=== PATIENT | female | born 2000 | race Caucasian/White ===

== ENCOUNTER 2025-06-01 16:34 | Outpatient (CLI) | payer OTHER, SELFPAY ==
--- OUTSIDE RECORDS SUMMARY | 2025-04-06 14:00 | XMS_ITS | Encounter Summary ---
Author Organization [facility] Address [address] [place] [address] Care Team Providers Care Book Jacket Cover Machine Operator Name Role Phone Estrellita Dietz MD Primary Care Provider [phone] Reason for Visit * Reason Comments Pressure Pt states every time she bends down she feels a lot of pressure in her head and when she stands back up she feels like she could pass out Encounter Details Date Type Department Care Team (Latest Contact Info) Description 04/06/2025 3:00 PM EDT Office Visit [facility] [address] [place] [address] Kathleen Lizarraga, BUSINESS ANALYSIS CONSULTANT [address] [place] [address] Vertigo (Primary Dx); Episodic lightheadedness Social History Tobacco Use Types Packs/Day Years Used Date Smoking Tobacco: Never Passive Smoke Exposure: Never Smokeless Tobacco: Never Comments:vapes Alcohol Use Standard Drinks/Week Comments Not Currently 0 (1 standard drink = 0.6 oz pur e alcohol) occ Humiliation, Afraid, Rape, and Kick questionnair e Answer Date Recorded Within the last year, have y ou been afraid of your partner or ex-partner? No 10/31/2024 Within the last year, have y ou been humiliated or emotionally abused in other ways by your partner or ex-partner? No Within the last year, have y ou been kicked, hit, slapped, or otherwise physically hurt by your partner or ex-partner? No 10/31/2024 Within the last year, have y ou been raped or forced to have any kind of sexual activity by your partner or ex-partner? No 10/31/2024 PHQ-2 Answer Date Recorded Patient Health Questionnaire-2 Score 0 02/16/2025 Hunger Vital Sign Answer Date Recorded Within the past 12 months, y ou worried that your food would run out before you got the money to buy more. Never true 11/01/19 25 Within the past 12 months, t he food you bought just didn't last and you didn't have money to get more. Never true 10/31/2024 PRAPARE - Transportation Answer Date Re corded In the past 12 months, has l ack of transportation kept you from medical appointments or from getting medications? No 10/18 In the past 12 months, has l ack of transportation kept you from meetings, work, or from getting things needed for daily living? No 10/31/2024 Housing Stability Vital Sign Answer Aj e Recorded In the last 12 months, was t here a time when you were not able to pay the mortgage or rent on time? No 04/15/2024 In the last 12 months, how many places have you lived? 1 04/15/2024 In the last 12 months, was t here a time when you did not have a steady place to sleep or slept in a assisted (including now)? No 04/15/2024 PHQ-9 Answer Date Recorded Patient Health Questionnaire-9 Score 0 02/16/2025 Housing Stability Vital Sign Answer Aj e Recorded In the last 12 months, was t here a time when you were not able to pay the mortgage or rent on time? No 10/31/2024 In the past 12 months, how m any times have you moved where you were living? 2 10/31/2024 At any time in the past 12 m [facility], were you homeless or living in a assisted (including now)? No 10/31/2024 Safety and Environment Answer Date Emiliano rded Do you worry that your child may have been physically abused? Patient unable to answer 08/22/2024 Do you worry that your child may have been sexually abused? Patient unable to answer 08/22/2024 Are there any guns kept in o r around your home or where your child spends time? Patient unable to answer 08/22/2024 Guns Unloaded or Locked Away Not on file 09/2024 Utilities Answer Date Recorded In the past 12 months has [employer], gas, oil, or water company threatened to shut off services in your home? No 10/31/2024 PHQ-2A Answer Date Recorded Patient Health Questionnaire-2 Score 0 05/13/2023 Comments Unknown Sex and Gender Information Value Date Recorded Sex Assigned at Female 01/17/2021 9:05 AM EDT Legal Sex Female 7:49 PM EDT Gender Identity Female 01/17/2021 9:05 AM EDT Sexual Orientation Straight 01/17/2021 9: 05 AM EDT documented as of this encounter Last Filed Vital Signs Vital Sign Reading Time Taken Comments Blood Pressure 114/66 04/06/2025 3:13 PM EDT Pulse 83 04/06/2025 3:13 PM EDT Temperature 36.9 C (98.4 F) 04/06/2025 3:13 PM EDT Respiratory Rate 18 04/06/2025 3:13 PM EDT Oxygen Saturation 99% 04/06/2025 3:13 PM EDT Inhaled Oxygen Concentration - - Weight 60.2 kg (132 lb 11.5 oz) 04/06/2025 3:13 PM EDT Height 157.5 cm (5' 2 ) 04/06/2025 3:13 PM EDT Body Mass Index 24.27 04/06/2025 3:13 PM EDT documented in this encounter Functional Status * Calculated C-SSRS Risk Score (Lifetime/Recent) Answer Date of Assessment Author No Risk Indicated 04/06/2025 3:16 PM EDT Roxie Galaviz * Question Answer Date of Assessment Author 1. Wish to be (Past 1 Month) No 025 3:16 PM EDT Roxie Moore 2. Non-Specific Active Suici shon Thoughts (Past 1 Month) No 04/06/2025 3:16 PM EDT Helen Moore 6. Suicidal Behavior (Lifetime) No 3:16 PM EDT Roxie Moore documented as of this encounter Miscellaneous Notes * Progress Notes - Kathleen Lizarraga Janeth, BUSINESS ANALYSIS CONSULTANT - 04/06/2025 3:00 PM EDT Subjective Patient ID: Spencer Mojica is a 24 y.o. female. Chief Complaint Patient presents with Pressure Pt states every time she bends down she feels a lot of pressure in her head and when she stands back up she feels like she could pass out Here with report of head pressure when she lies down. Reports it is severe.Will feel dizzy. Will see starts sometimes. Started on Thursday. Denies fever or chills. Denies ear pain or sore throat. Denies vision changes. Notes if she bends down then rises the pain in head is severe and will feel light headed. Feels she is hydrated well. No recent illness or travel. 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 Denies shortness of breath or chest pain. Denies palpitations. Reports normal hearing. Denies sinus pain. The following portions of the chart were reviewed this encounter and updated as appropriate: Tobacco Allergies Meds Problems Med Hx Surg Hx Fam Hx Current Medications[1] Objective Blood pressure 114/66, pulse 83, temperature 36.9 ??C (98.4 ??F), temperature source Oral, resp. rate 18, height 1.575 m (5' 2 ), weight 60.2 kg (132 lb 11.5 oz), SpO2 99%. Body mass index is 24.27 kg/m??. Physical Exam Vitals reviewed. Constitutional: Appearance: Normal appearance. HENT: Head: Normocephalic. Right Ear: Ear canal normal. A middle ear effusion is present. Left Ear: Ear canal normal. A middle ear effusion is present. Nose: Nose normal. Mouth/Throat: Mouth: Mucous membranes are moist. Pharynx: Oropharynx is clear. Eyes: Extraocular Movements: Extraocular movements intact. Conjunctiva/sclera: Conjunctivae normal. Pupils: Pupils are equal, round, and reactive to light. Cardiovascular: Rate and Rhythm: Normal rate and regular rhythm. Pulses: Normal pulses. Heart sounds: Normal heart sounds. Pulmonary: Effort: Pulmonary effort is normal. Breath sounds: Normal breath sounds. Musculoskeletal: General: Normal range of motion. Cervical back: Normal range of motion. Lymphadenopathy: Cervical: No cervical adenopathy. Skin: General: Skin is warm and dry. Neurological: Mental Status: She is alert and oriented to person, place, and time. Cranial Nerves: No cranial nerve deficit. Motor: No weakness. Coordination: Coordination normal. Gait: Gait normal. Psychiatric: Mood and Affect: Mood normal. Behavior: Behavior normal. Thought Content: Thought content normal. Judgment: Judgment normal. Assessment/Plan Diagnoses and all orders for this visit: Vertigo - meclizine (Antivert) 25 MG tablet; Take 1 tablet by mouth 3 times a day as needed for dizziness. - predniSONE (Deltasone) 20 MG tablet; Take 2 tablets by mouth daily for 5 days. Episodic lightheadedness Discussed poss causes of her symptoms such as vertigo, dehydration, pots, sinus or ear disorder, etc Work on good hydration Change positions slowly Trial of medication and RTC if symptoms persist Discussed new med risks and benefits and possible side effects. Note to patient: The Cures Act makes medical notes like these available to patients inthe interest of transparency. However, be advised this is a medical document. It is intended as peer to peer communication. It is written in medical language and may contain abbreviations or verbiagethat are unfamiliar. It may appear blunt or direct. Medical documents are intended to carry relevant information, facts as evident, and the clinical opinion of the practitioner. [1] Current Outpatient Medications: meclizine (Antivert) 25 MG tablet, Take 1 tablet by mouth 3 times a day as needed for dizziness., Disp: 30 tablet, Rfl: 1 predniSONE (Deltasone) 20 MG tablet, Take 2 tablets by mouth daily for 5 days., Disp: 10 tablet, Rfl: 0 documented in this encounter Plan of Treatment Not on file documented as of this encounter Visit Diagnoses Diagnosis Vertigo- Primary Dizziness and giddiness Episodic lightheadedness documented in this encounter Additional Health Concerns Assessment Noted Time PHQ-9 Depression Total Score: 0 02/17/20 25 11:01 AM EDT A fall risk assessment has been complete d for the patient 10/28/2024 8:26 AM EDT A Body Mass Index follow-up plan has been documented for the patient 04/06/2025 3:43 PM EDT documented as of this encounter Care Teams Book Jacket Cover Machine Operator Relationship Specialty Start Date End Date Estrellita Dietz MD [address] [place] [id number] PCP - General 11/30/20 documented as of this encounter
--- OUTSIDE RECORDS SUMMARY | 2025-05-17 14:20 | XMS_ITS | Encounter Summary ---
Author Organization [facility] Address [address] [place] [address] Care Team Providers Care Director Television Name Role Phone Estrellita iDetz MD Primary Care Provider [phone] Reason for Visit * Reason Comments Follow-up Pt is here to determ ine if she is Encounter Details Date Type Department Care Team (Late st Contact Info) Description 05/17/2025 3:20 PM EDT [facility] [address] [address] Halle Waldrop MD [address] [place] [address] Missed period (Primary Dx); Positive test Social History Tobacco Use Types Packs/Day Years Used Date Smoking Tobacco: Never Passive Smoke Exposure: Never Smokeless Tobacco: Never Comments:vapes Alcohol Use Standard Drinks/Week Comments Not Currently 0 (1 standard drink = 0.6 oz pur e alcohol) occ PHQ-2 Answer Date Recorded Patient Health Questionnaire-2 Score 0 02/16/2025 PHQ-9 Answer Date Recorded Patient Health Questionnaire-9 Score 0 02/16/2025 Humiliation, Afraid, Rape, and Kick questionnair e Answer Date Recorded Within the last year, have y ou been afraid of your partner or ex-partner? No 05/17/2025 Within the last year, have y ou been humiliated or emotionally abused in other ways by your partner or ex-partner? No Within the last year, have y ou been kicked, hit, slapped, or otherwise physically hurt by your partner or ex-partner? No 05/17/2025 Within the last year, have y ou been raped or forced to have any kind of sexual activity by your partner or ex-partner? No 05/17/2025 Social Connection and Isolation Panel Answer Date Recorded Frequency of Communication with Friends and Fami ly Not on file 05/17/2025 Frequency of Social Gatherin gs with Friends and Family Not on file 05/17/2025 Attends Church Services Not on file 05/17 Active Member of Clubs or Organizations Not on f ile 05/17/2025 Attends Club or Organization Meetings Not on bonnie e 05/17/2025 Are you , , di vorced, , never , or living with a partner? Living with partner 05/17/2025 Hunger Vital Sign Answer Date Recorded Within the past 12 months, y ou worried that your food would run out before you got the money to buy more. Never true 05/17/20 Within the past 12 months, t he food you bought just didn't last and you didn't have money to get more. Never true 05/17/2025 PRAPARE - Transportation Answer Date Re corded In the past 12 months, has l ack of transportation kept you from medical appointments or from getting medications? No 04/20 In the past 12 months, has l ack of transportation kept you from meetings, work, or from getting things needed for daily living? No 05/17/2025 Housing Stability Vital Sign Answer Aj e Recorded In the last 12 months, was t here a time when you were not able to pay the mortgage or rent on time? No 05/17/2025 In the past 12 months, how m any times have you moved where you were living? 1 05/17/2025 At any time in the past 12 m [facility], were you homeless or living in a halfway (including now)? No 05/17/2025 [facility] Utilities Answer Date Recorded In the past 12 months has th e electric, gas, oil, or water company threatened to shut off services in your home? No 05/17/2025 Safety and Environment Answer Date Emiliano rded Do you worry that your child may have been physically abused? Patient unable to answer 05/17/2025 Do you worry that your child may have been sexually abused? Patient unable to answer 05/17/2025 Are there any guns kept in o r around your home or where your child spends time? Patient unable to answer 05/17/2025 Guns Unloaded or Locked Away Not on file PHQ-2A Answer Date Recorded Patient Health Questionnaire-2 [...] Sign Reading Time Taken Comments Blood Pressure 104/68 05/17/2025 3:01 PM EDT Pulse 73 05/17/2025 3:01 PM EDT Temperature 36.8 C (98.3 F) 05/17/2025 3:01 PM EDT Respiratory Rate 18 05/17/2025 3:01 PM EDT Oxygen Saturation 99% 05/17/2025 3:01 PM EDT Inhaled Oxygen Concentration - - Weight 60.2 kg (132 lb 11.5 oz) 05/17/2025 3:01 PM EDT Height 157.5 cm (5' 2 ) 05/17/2025 3:01 PM EDT Body Mass Index 24.27 05/17/2025 3:01 PM EDT documented in this encounter Functional Status * Calculated C-SSRS Risk Score (Lifetime/Recent) Answer Date of Assessment Author No Risk Indicated 05/17/2025 3:12 PM EDT Av Petty * Question Answer Date of Assessment Author 1. Wish to be (Past 1 Month) No 025 3:12 PM EDT Av Petty P 2. Non-Specific Active Suici shon Thoughts (Past 1 Month) No 05/17/2025 3:12 PM EDT Nelson Petty P 6. Suicidal Behavior (Lifetime) No 3:12 PM EDT Av Petty documented as of this encounter Miscellaneous Notes * Progress Notes - Halle Waldrop MD - 05/17/2025 3:20 PM EDT Subjective Patient ID: Spencer Mojica is a 24 y.o. female. Chief Complaint Patient presents with Follow-up Pt is here to determine if she is HPI PT with positive urine test at home. She is unsure of last period but thinks in March. + fatigue and breast tenderness. Current Medications[1] Pertinent review of systems has been performed and negative except as noted in HPI. Pertinent areas of the chart reviewed include social, family, past medical and surgical history. Objective Physical Exam Constitutional: Appearance: Normal appearance. HENT: Head: Normocephalic and atraumatic. Right Ear: External ear normal. Left Ear: External ear normal. Nose: Nose normal. Mouth/Throat: Mouth: Mucous membranes are moist. Pharynx: Oropharynx is clear. Eyes: Extraocular Movements: Extraocular movements intact. Pupils: Pupils are equal, round, and reactive to light. Cardiovascular: Rate and Rhythm: Normal rate and regular rhythm. Heart sounds: Normal heart sounds. Pulmonary: Effort: Pulmonary effort is normal. Breath sounds: Normal breath sounds. Abdominal: General: Bowel sounds are normal. Palpations: Abdomen is soft. Musculoskeletal: Cervical back: Normal range of motion. Right lower leg: No edema. Left lower leg: No edema. Skin: General: Skin is warm and dry. Coloration: Skin is not jaundiced. Findings: No rash. Neurological: Mental Status: She is alert. Psychiatric: Mood and Affect: Mood normal. Behavior: Behavior normal. Thought Content: Thought content normal. Assessment/Plan Diagnoses and all orders for this visit: Missed period - POCT Urine - Test Qualitative Plasma Positive test - hCG, Total Beta, Quantitative, Plasma 1. Missed period (Primary) Pt with report of + urine test at home but POCT here was negative. Will get serum qualitative test. - POCT Urine - Test Qualitative Plasma [1] Current Outpatient Medications: MV & Min w/FA-DHA ( ADULT GUMMY/DHA/FA PO), Take by mouth., Disp: , Rfl: meclizine (Antivert) 25 MG tablet, Take 1 tablet by mouth 3 times a day as needed for dizziness. (Patient not taking: Reported on 05/17/2025), Disp: 30 tablet, Rfl: 1 documented in this encounter Plan of Treatment Not on file documented as of this encounter Procedures Procedure Name Priority Date/Time Associated Diagnosis Comments TEST QUALITATIVE PLASMA Routine 05/17/2025 3:43 PM EDT Missed period HCG, QUANTITATIVE Add-On 05/17/2025 3:4 3 PM EDT Positive test POCT , URINE Routine 05/17/2025 3:27 PM EDT Missed period documented in this encounter Results * (ABNORMAL) hCG, Total Beta, Quantitative, Plasma (05/17/2025 3:43 PM EDT) hCG, Total Beta 44.4(H) <5 mIU/mL 05/18/2025 1:07 PM EDT [facility] Blood Venous blood specimen / Unknown Venipuncture / Unknown 05/17/2025 3:43 PM EDT 05/17/2025 3:43 PM EDT Narrative [facility] - 05/18/2025 1:07 PM EDT Patients: Normal Range Premenopausal Female < 5 mIU/mL Male < 3 mIU/mL Postmenopausal Female < 8 mIU/mL The [employer] Elecsys hCG+beta assay is standardized to the 4th IS for Chorionic Gonadotropin. The combination of the specific monoclonal antibodies used in this assay recognizes the holo-hormone, nicked forms of hCG, the Beta-core Fragment and the free beta-subunit. Elevated hCG concentrations not associated with are found in patients with gestational trophoblastic disease and choriocarcinoma as well as germ cell, ovarian, bladder, pancreas, stomach, lung and liver tumors. Performed by the [employer] electrochemiluminescent immunoassay which is traceable to the 4th International Standard for hCG (NIBSC 75/589). Results obtained with different test methods or kits cannot be used interchangeably. us Halle Waldrop MD LAB BLOOD ORDERABLES Final Result [facility] [address] [place] [address] * (ABNORMAL) Test Qualitative Plasma (05/17/2025 3:43 PM EDT) Test Positive(A ) Negative 05/17/2025 7:18 PM EDT [facility] Blood Venous blood specimen / Unknown Venipuncture / Unknown 05/17/2025 3:43 PM EDT 05/17/2025 3:43 PM EDT Narrative [facility] - 05/17/2025 7:18 PM EDT Positive, greater than 6 mIU/hCG mL. Halle Waldrop MD LAB BLOOD ORDERABLES Final Result Performing Organization Address City/[facility]/ZIP Co de Phone Number [facility] [address] [place] [address] * POCT Urine (05/17/2025 3:27 PM EDT) Urine - Point of Care Negative Negative - women after 7 weeks gestation and dilute urine (specific gravity <1.010) may have false negative results. Plasma HCG testing is recommended. Test performed at Point of Care. INTERNAL QC OK, PREG URINE yes KIT LOT NUMBER, PREG URINE [id number] KIT EXPIRATION DATE, PREG URINE 02/16/26 Urine Urine specimen obtained by clean catch procedure / Unknown 05/17/2025 3:27 PM EDT Halle Waldrop MD POINT OF CARE TEST ENTER/E DIT ORDERABLES Final Result documented in this encounter Visit Diagnoses Diagnosis Missed period- Primary Positive test examination or test, positive result documented in this encounter Additional Health Concerns Assessment Noted Time PHQ-9 Depression Total Score: 0 02/17/20 25 11:01 AM EDT A fall risk assessment has been complete d for the patient 10/28/2024 8:26 AM EDT A Body Mass Index follow-up plan has been documented for the patient 04/06/2025 3:43 PM EDT documented as of this encounter Care Teams Director Television Relationship Specialty Start Date End Date Estrellita Dietz MD [address] [place] [address] PCP - General 11/30/20 documented as of this encounter
--- OUTSIDE RECORDS SUMMARY | 2025-05-19 12:15 | XMS_ITS | Encounter Summary ---
Author Organization [facility] Address [address] [place] [address] Care Team Providers Care Professor Of Psychology Name Role Phone Estrellita Dietz MD Primary Care Provider [phone] Encounter Details Date Type Department Care Team (Latest Contact Info) Description 05/19/2025 1:15 PM EDT Clinical Support [address] [phone] Positive test (Primary Dx) Social History Tobacco Use Types Packs/Day Years [...] and Family Not on file 05/17/2025 Attends Adventism Services Not on file 05/17 Active Member [...] money to buy more. Never true 05/17/20 25 Within the past 12 months, t [...] any time in the past 12 m [facility], were you homeless or living in a fpc (including now)? No 05/17/2025 [facility] Utilities Answer Date Recorded In the [...] AM EDT documented as of this encounter Miscellaneous Notes * Clinician Note - Moy Boyle - 05/19/2025 1:15 PM EDT Patient arrived for blood work. documented in this encounter Plan of Treatment Not on file documented as of this encounter Procedures Procedure Name Priority Date/Time Associated Diagnosis Comments HCG, QUANTITATIVE Routine 05/19/2025 11: 21 AM EDT Positive test documented in this encounter Results * (ABNORMAL) hCG, Total Beta, Quantitative, Plasma (05/19/2025 11:21 AM EDT) hCG, Total Beta 101(H) <5 mIU/mL 05/19/2025 7:06 PM EDT [facility] Blood Venous blood specimen / Unknown Venipuncture / Unknown 05/19/2025 11:21 AM EDT 05/19/2025 11:21 AM EDT Narrative [facility] - 05/19/2025 7:06 PM EDT Patients: Normal Range Premenopausal Female [...] or kits cannot be used interchangeably. us Estrellita Dietz MD LAB BLOOD ORDERABLES Final Re sult [facility] [address] [place] [address] documented in this encounter Visit Diagnoses Diagnosis Positive test- Primary examination or test, positive result documented in this encounter Additional Health Concerns Assessment Noted Time PHQ-9 Depression Total Score: 0 02/17/20 25 11:01 AM EDT A fall risk assessment has been complete d for the patient 10/28/2024 8:26 AM EDT A Body Mass Index follow-up plan has been documented for the patient 05/19/2025 11:22 AM EDT documented as of this encounter Care Teams Professor Of Psychology Relationship Specialty Start Date End Date Estrellita Dietz MD [address] [place] [phone] PCP - General 11/30/20 documented as of this encounter
--- OUTSIDE RECORDS SUMMARY | 2025-05-22 15:00 | XMS_ITS | Encounter Summary ---
Author Organization [facility] Address [address] [place] [address] Care Team Providers Care Floor Helper Name Role Phone Estrellita Dietz MD Primary Care Provider [phone] Reason for Referral * Imaging (Routine) - Closed Specialty Diagnoses / Procedures Referred By Contac t Referred To Contact Diagnoses Unsure of LMP (last menstrual period) as reason for ultrasound scan Procedures OB US Transvaginal Nicolas Medina MD [address] [place] [address] Phone: tel: fax: EXT External Clinic [address] [place] [phone] Referral ID Status Reason Start Date Expiration Date Visits Re quested Visits Authorized [id number] Closed 05/22/2025 11/21/2026 1 1 Encounter Details Date Type Department Care Team (Late st Contact Info) Description 05/22/2025 3:00 PM EST Initial Obstetrics & Gynecology [address] [place] [address] Nicolas Medina MD [address] [place] [address] GA: 5w1d Social History Tobacco [...] and Family Not on file 05/17/2025 Attends [employer]reg[employer] Not on file 05/17 Active Member [...] were you homeless or living in a fdc (including now)? No 05/17/2025 [facility] Utilities Answer Date Recorded In the past 12 months has [employer] gas, oil, or water company threatened to [...] down, depressed, or hopeless Not at all 05/22/2025 3:13 PM Maryanne Mayo Patient Health Questionnaire -2 Score 0 05/22/2025 3:13 PM Maryanne Mayo * Question Answer [...] so slowly that other people could have noticed? Or the opposite - being so fidgety or restless that you have been moving around a lot more than usual. Not at all 05/22/2025 3:13 PM Maryanne Mayo Thoughts that you would be b cory off or hurting yourself in some way Not at all 05/22/2025 3:13 PM Maryanne Mayo Patient Health Questionnaire -9 Score 0 05/22/2025 3:13 PM Maryanne Mayo * How difficult [...] Reactive Non Reactive 05/22/2025 7:28 PM EST [facility] Comment:Screening for HIV 1 & 2 antibodies, and P24 antigen is NONREACTIVE. No confirmatory testing is required. Blood Venous blood specimen / Unknown Venipuncture / Unknown 05/22/2025 3:52 PM EST 05/22/2025 6:48 PM EST us Nicolas Medina MD LAB BLOOD ORDERABLES Final Resu lt Performing Organization Address City/[facility]/ZIP Co de Phone Number [facility] [address] [place] [address] * Urine Culture (05/22/2025 3:52 PM EST) Pathologist [facility] Culture <10,000 CFU/mL Mixed urogenital, fecal, or skin sophia present. 05/24/2025 9:27 AM EST [facility] Urine Urine specimen obtained by clean catch procedure / Unknown Non-blood Collection / Unknown 05/22/2025 3:52 PM EST 05/22/2025 6:47 PM EST us Nicolas Medina MD LAB MICROBIOLOGY - GENERAL ORDE [facility] Final Result Performing Organization Address City/[facility]/[place] [address] * Type and Screen (05/22/2025 3:52 PM [...] TEST ORDERABLES Final Result Performing Organization Address [facility] Phone Number BLOOD BANK [address] * Treponema Pallidum (Syphilis) Antibodies with Reflex to RPR and RPR Titer (Those with NO known Syphilis) (05/22/2025 3:52 PM EST) Syphilis Antibody (IgG+IgM) Nonreactive Nonreactive 05/22/2025 8:35 PM EST [facility] Comment:Nonreactive. No sero logic evidence of syphilis. No follow-up necessary unless clinically indicated (e.g., early syphilis). Blood Venous blood specimen / Unknown Venipuncture / Unknown 05/22/2025 3:52 PM EST 05/22/2025 6:48 PM EST us Nicolas Medina MD LAB BLOOD ORDERABLES Final Resu lt Performing Organization Address City/[facility] Co de Phone Number [facility] [address] [place] [address] * Rubella Antibody IgG (05/22/2025 3:52 PM EST) Rubella Antibody IgG Negative Negative 05/22/2025 9:27 PM EST [facility] Comment: Rubella IgG Result Interpretation: Negative: [...] ORDERABLES Final Resu lt Performing Organization Address City/[facility]/ZIP Co de Phone Number [facility] [address] [place] [address] * Neisseria gonorrhea DNA by PCR (05/22/2025 3:52 PM EST) Neisseria gonorrhea DNA PCR Result Not Detected Not Detected. 05/23/2025 2:37 PM EST [facility] Urine Urine specimen obtained by clean catch procedure / Unknown Non-blood Collection / Unknown 05/22/2025 3:52 PM EST 05/22/2025 6:47 PM EST Narrative [facility] - 05/23/2025 2:37 PM EST This test is performed by the Temptster000 instrument for Real Time PCR C. trachomatis and N. gonorrhea. This test is FDA approved for use with endocervical, vaginal, and urine specimens. This test is used for clinical purposes. It should not be regarded as invesigational or for research. The [facility] Clinical [facility]biology Laboratory is certified under the Clinical Laboratory Improvement Amendments of 1988 (CLIA-88) as qualified to perform high complexity clinical laboratory testing. Result Claudia Medina MD LAB [facility] Final Result Performing Organization Address [facility] [place] [address] * Hepatitis C Antibody w/Reflex to HCV Quant PCR (05/22/2025 3:52 PM EST) Hepatitis C Antibody Negative Negative 05/22/2025 7:29 PM EST [facility] Blood Venous blood specimen / Unknown Venipuncture / Unknown 05/22/2025 3:52 PM EST 05/22/2025 6:48 PM EST Result Claudia Medina MD LAB BLOOD ORDERABLES Final Resu lt Performing Organization Address City/[facility]/ZIP Co de Phone Number [facility] [address] [place] [address] * Hepatitis B Surface Antigen (05/22/2025 3:52 PM EST) Hepatitis B Surf Antigen Negative Negative 05/22/2025 8:35 PM EST [facility] Blood Venous blood specimen / Unknown Venipuncture / Unknown 05/22/2025 3:52 PM EST 05/22/2025 6:48 PM EST us Nicolas Medina MD LAB BLOOD ORDERABLES Final Resu lt Performing Organization Address [facility]/ZIP Co de Phone Number [facility] [address] [place] [address] * Chlamydia trachomatis DNA by PCR (05/22/2025 3:52 PM EST) Pathologist [facility] Chlamydia trachomatis DNA PCR Result Not Detected Not Detected 05/23/2025 2:37 PM EST [facility] Urine Urine specimen obtained by clean catch procedure / Unknown Non-blood Collection / Unknown 05/22/2025 3:52 PM EST 05/22/2025 6:47 PM EST Narrative [facility] - 05/23/2025 2:37 PM EST This test is performed by the [employer] m2000 instrument for Real Time PCR C. trachomatis and N. gonorrhea. This test is FDA approved for use with endocervical, vaginal, and urine specimens. This test is used for clinical purposes. It should not be regarded as invesigational or for research. The [facility] is certified under the Clinical Laboratory Improvement Amendments of 1988 (CLIA-88) as qualified to perform high complexity clinical laboratory testing. us Nicolas Medina MD LAB MICROBIOLOGY - GENERAL ORDE [facility] Final Result Performing Organization Address City/[facility]/ZIP Co de Phone Number [facility] [address] [place] [address] * CBC W/O Differential (05/22/2025 3:52 PM EST) Pathologist [facility] WBC Count 8.24 3.70 - 10.30 10*3/uL LAB HEMATOLOGY METHOD 05/22/2025 7:07 PM EST [facility] RBC Count 4.96 3.90 - 5.20 10*6/uL LAB HEMATOLOGY METHOD 05/22/2025 7:07 PM EST [facility] HGB 14.0 11.2 - 15.7 g/dL LAB HEMATOLOGY METHOD 05/22/2025 7:07 PM EST [facility] HCT 41.6 34.0 - 45.0 % LAB HEMATOLOGY METHOD 05/22/2025 7:07 PM EST [facility] Platelet Count 318 155 - 369 10*3/uL LAB HEMATOLOGY METHOD 05/22/2025 7:07 PM EST [facility] MCV 84 79 - 98 fL LAB HEMATOLOGY METHOD 05/22/2025 7:07 PM EST [facility] MCH 28.2 26.0 - 32.0 pg LAB HEMATOLOGY METHOD 05/22/2025 7:07 PM EST [facility] MCHC 33.7 30.7 - 35.5 g/dL LAB HEMATOLOGY METHOD 05/22/2025 7:07 PM EST [facility] RDW 12.9 11.5 - 14.5 % LAB HEMATOLOGY METHOD 05/22/2025 7:07 PM EST [facility] MPV 11.0 8.8 - 12.5 fL LAB HEMATOLOGY METHOD 05/22/2025 7:07 PM EST [facility] nRBC 0.0 <=0.0 per 100 WBCs LAB HEMATOLOGY METHOD 05/22/2025 7:07 PM EST [facility] Blood Venous blood specimen / Unknown Venipuncture / Unknown 05/22/2025 3:52 PM EST 05/22/2025 6:48 PM EST us Nicolas Medina MD LAB BLOOD ORDERABLES Final Resu lt [facility] [address] [place] [address] * Progesterone (05/22/2025 3:52 PM EST) Progesterone III 11.9 Reference Range not established ng/mL 05/22/2025 8:11 PM EST [facility] Blood Venous blood specimen / Unknown Venipuncture / Unknown 05/22/2025 3:52 PM EST 05/22/2025 7:43 PM EST Narrative [facility] - 05/22/2025 8:11 PM EST Menstrual Cycle Phase Reference Intervals: Females, 18 Y and up (ng/mL) Follicular <= 0.33 Ovulation <= 2.35 Luteal 0.5-21 Post-Menopausal <0.2 reference Intervals (ng/mL): 1st Trimester 11 - 45 2nd Trimester 25 - 84 3rd Trimester 58 - 214 us Nicolas Medina MD LAB BLOOD ORDERABLES Final Resu Performing Organization Address [facility] Co de Phone Number [facility] [address] [place] [address] * (ABNORMAL) hCG, Total Beta, Quantitative, Plasma (05/22/2025 3:52 PM EST) hCG, Total Beta 412(H) <5 mIU/mL 05/22/2025 7:29 PM EST [facility] Blood Venous blood specimen / Unknown Venipuncture / Unknown 05/22/2025 3:52 PM EST 05/22/2025 6:48 PM EST Narrative [facility] - 05/22/2025 7:29 PM EST Patients: Normal [...] ORDERABLES Final Resu lt Performing Organization Address [facility] Co de Phone Number [facility] [address] [place] [address] * OB US Transvaginal (05/22/2025 3:29 PM EST) Anatomical Region Laterality Modality Pelvis Ultrasound 05/22/2025 3:32 PM EST Impressions 05/22/2025 3:41 PM EST The OB Ultrasound you requested has been resulted. Please navigate to the Imaging tab in [employer] for review. This message has been generated by the interface. Narrative Procedure Note Nicolas Medina MD - 05/22/2025 IMPRESSION: The OB Ultrasound you requested has been resulted. Please navigate to theImaging tab in [employer] for review. This message has been generated by theinterface. us Nicolas Medina MD IMG OB US [...] documented as of this encounter Care Teams Floor Helper Relationship Specialty Start Date End Date Estrellita Dietz MD [address] [place] [address] PCP - General 11/30/20 documented as of this encounter
--- OUTSIDE RECORDS SUMMARY | 2025-05-22 15:30 | XMS_ITS | Encounter Summary ---
Author Organization [facility] Address [address] [place] [address] Care Team Providers Care Bacteriologist Medical Name Role Phone Estrellita Dietz MD Primary Care Provider [phone] Reason for Visit * Imaging (Routine) - Closed Specialty Diagnoses / Procedures Referred By Lara rogers Referred To Contact Diagnoses Unsure of LMP (last menstrual period) as reason for ultrasound scan Procedures OB US Transvaginal Nicolas Medina MD [address] [place] [address] Phone: tel: fax: EXT External Clinic [address] [place] [phone] Referral ID Status Reason Start Date Expiration Date Visits Re quested Visits Authorized [id number] Closed 05/22/2025 11/21/2026 1 1 Encounter Details Date Type Department Care Team (Latest Contact Info) Description 05/22/2025 3:30 PM EST Ancillary Procedure Obstetrics & Gynecology [address] [place] [address] Unsure of LMP (last menstrual [...] any time in the past 12 m [facility], were you homeless or living in a care home (including now)? No 05/17/2025 [facility] Utilities Answer Date Recorded In the [...] Please navigate to the Imaging tab in amiando for review. This message has been generated by the interface. Narrative Procedure Note Nicolas Medina MD - 05/22/2025 IMPRESSION: The OB Ultrasound you requested has been resulted. Please navigate to theImaging tab in amiando for review. This message has been generated by [employer]. us Nicolas Medina MD IMG OB US [...] documented as of this encounter Care Teams Bacteriologist Medical Relationship Specialty Start Date End Date Estrellita Dietz MD [address] [place] [phone] PCP - General 11/30/20 documented as of this encounter
--- OUTSIDE RECORDS SUMMARY | 2025-05-24 11:00 | XMS_ITS | Encounter Summary ---
Author Organization Healthcare Address [address] [place] [address] Care Team Providers Care Pleasure Craft Sailor Name Role Phone Estrellita Dietz MD Primary Care Provider [phone] Reason for Visit * Reason Comments Labs Here for labs. Encounter Details Date Type Department Care Team (Latest Contact Info) Description 05/24/2025 11:00 AM EST Clinical Support Obstetrics & Gynecology [address] [place] [address] test positive (Primary Dx) Social [...] and Family Not on file 05/17/2025 Attends Druze Services Not on file 05/17 Active Member [...] any time in the past 12 m [facility], were you homeless or living in a assisted (including now)? No 05/17/2025 [facility] Utilities Answer Date Recorded In the [...] 842(H) <5 mIU/mL 05/24/2025 2:35 PM EST [facility] Blood Venous blood specimen / Unknown Venipuncture / Unknown 05/24/2025 10:42 AM EST 05/24/2025 2:04 PM EST Narrative [facility] - 05/24/2025 2:35 PM EST Patients: Normal Range Premenopausal Female < 5 mIU/mL Male < 3 mIU/mL Postmenopausal Female < 8 mIU/mL The Mlee Elecsys hCG+beta assay is standardized to the [...] MD LAB BLOOD ORDERABLES Final Resu lt [facility] [address] [place] [address] documented in this encounter Visit Diagnoses Diagnosis [...] documented as of this encounter Care Teams Pleasure Craft Sailor Relationship Specialty Start Date End Date Estrellita Dietz MD [address] [place] [id number] PCP - General 11/30/20 documented as of this encounter
--- OUTSIDE RECORDS SUMMARY | 2025-05-31 15:15 | XMS_ITS | Encounter Summary ---
Author Organization Healthcare Address [address] [place] [address] Care Team Providers Care Explosive Ordnance Technician Name Role Phone Estrellita Dietz MD Primary Care Provider [phone] Reason for Visit * Reason Comments Labs Here for labs. Encounter Details Date Type Department Care Team (Latest Contact Info) Description 05/31/2025 3:15 PM EST Clinical Support Obstetrics & Gynecology [address] [place] [address] , unspecified gestational age (Primary [...] any time in the past [address] [facility], were you homeless or living in a m[facility] (including now)? No 05/17/2025 [facility] [...] 7,199(H) <5 mIU/mL 05/31/2025 7:26 PM EST [facility] Blood Venous blood specimen / Unknown Venipuncture / Unknown 05/31/2025 2:51 PM EST 05/31/2025 6:43 PM EST Narrative [facility] - 05/31/2025 7:26 PM EST [...] ORDERABLES Final Resu lt Performing Organization Address [facility] de Phone Number [facility] [address] [place] [address] * Progesterone (05/31/2025 2:39 PM EST) Progesterone III 15.4 Reference Range not established ng/mL 05/31/2025 7:24 PM EST [facility] Blood Venous blood specimen / Unknown Venipuncture / Unknown 05/31/2025 2:39 PM EST 05/31/2025 6:44 PM EST Narrative [facility] - 05/31/2025 7:24 PM EST Menstrual Cycle Phase Reference Intervals: Females, 18 Y and up (ng/mL) Follicular <= 0.33 Ovulation <= 2.35 Luteal 0.5-21 Post-Menopausal <0.2 reference Intervals (ng/mL): 1st Trimester 11 - 45 2nd Trimester 25 - 84 3rd Trimester 58 - 214 us Nicolas Medina MD LAB BLOOD ORDERABLES Final Resu lt Performing Organization Address [facility] Co de Phone Number [facility] [address] [place] [address] documented in this encounter Visit Diagnoses Diagnosis [...] documented as of this encounter Care Teams Explosive Ordnance Technician Relationship Specialty Start Date End Date Estrellita Dietz MD [address] [place] [address] PCP - General 11/30/20 documented as of this encounter
--- OUTSIDE RECORDS SUMMARY | 2025-06-01 16:39 | XMS_ITS | Encounter Summary ---
Author Organization Healthcare Address [address] [place] [address] Care Team Providers Care Travel Director Name Role Phone Estrellita Dietz MD Primary Care Provider [phone] Encounter Details Date Type Department Care Team (Late st Contact Info) Description 06/19/2022 Outside Procedure External Location [address] [place] [address] Bahman Kumar, STEEL WHEEL ENGRAVER [address] [place] [address] Social History Tobacco Use Types Packs/Day Years Used Date Smoking Tobacco: Never Smokeless Tobacco: Never PHQ-2 Answer Date Recorded Patient Health Questionnaire-2 Score 0 06/19/2022 Comments Unknown Sex and Gender Information Value Date Recorded Sex Assigned at Female 01/17/2021 9:05 AM EDT Legal Sex Female 7:49 PM EDT Gender Identity Female 01/17/2021 9:05 AM EDT Sexual Orientation Straight 01/17/2021 9: 05 AM EDT COVID-19 Exposure Response Date Recorded In the last 10 days, have yo u been in contact with someone who was confirmed or suspected to have Coronavirus/COVID-19? No / Unsure 06/19/2022 3:53 PM EST documented as of this encounter Functional Status * Over the past 2 weeks, how often have you been bothered by any of the following problems? Question Answer Date of Assessment Author Little interest or pleasure in doing things Not at all 06/19/2022 4:05 PM EST Luis Huma C Feeling down, depressed, or hopeless Not at all 07/2021 4:05 PM EST Luis Huma C Patient Health Questionnaire-2 Score 0 07/2021 4:05 PM EST Luis Huma C * Calculated C-SSRS Risk Score (Lifetime/Recent) Answer Date of Assessment Author No Risk Indicated 06/19/2022 4:05 PM EST Luis Huma C * Question Answer Date of Assessment Author 1. Wish to be (Past 1 Month) No 022 4:05 PM EST Luis Huma C 2. Non-Specific Active Suici shon Thoughts (Past 1 Month) No 06/19/2022 4:05 PM EST Luis Huma C 6. Suicidal Behavior (Lifetime) No 4:05 PM EST Luis Huma C documented as of this encounter Plan of Treatment Not on file documented as of this encounter Procedures Procedure Name Priority Date/Time Associated Diagnosis Comments XR WRIST LEFT 3+ VIEWS 06/19/2022 4:44 PM EST documented in this encounter Results * XR Wrist Left 3+ Views (06/19/2022 4:44 PM EST) Anatomical Region Laterality Modality Upper Extremities, Wrist Left Radiogr aphic Imaging 06/19/2022 4:44 PM EST Narrative 06/20/2022 10:46 [place] [address] Name: WILDER MOJICA Exam Date: 06/19/2022 : 2000 Age 21 Gender: F Physician: BAHMAN KUMAR Facility: [facility] Facility HSV: Outpatient Exam: WRIST 3V LT Left wrist 3 VIEW HISTORY: Pain. FINDINGS: No evidence of an acute, displaced fracture or dislocation of the visualized bony architecture. The joint spaces appear normal. IMPRESSION: No acute bony abnormality. Dictated By: Jonathon Hickey Transcribed By: Jonathon Villafana Transcribed On: 06/20/2022 10:35 AM Electronically signed by: Jonathon Hickey 06/20/2022 Thank you for referring WILDER MOJICA to [facility]. Legally authenticated by PASQUALE DURAND 2022-06-20 10:35:18 Procedure Note Provider, [facility] - 06/20/[address] [address] Name: WILDER MOJICA Exam Date: 06/19/2022 : 2000 Age 21 Gender: F Physician: BAHMAN KUMAR Facility: [facility] Facility HSV: Outpatient Exam: WRIST 3V LT Left wrist 3 VIEW HISTORY: Pain. FINDINGS: No evidence of an acute, displaced fracture or dislocation ofthe visualized bony architecture. The joint spaces appear normal. IMPRESSION: No acute bony abnormality. Dictated By: Jonathon Hickey Transcribed By: Jonathon Villafana Transcribed On: 06/20/2022 10:35 AM Electronically signed by: Jonathon Hickey 06/20/2022 Thank you for referring WILDER MOJICA to [facility]. Legally authenticated by PASQUALE DURAND 2022-06-20 10:35:18 Bahman Kumar STEEL WHEEL ENGRAVER IMG XR PROCEDURES Final R esult documented in this encounter Visit Diagnoses Not on filedocumented in this encounter Additional Health Concerns Assessment Noted Time A fall risk assessment has been complete d for the patient 06/19/2022 4:06 PM EST documented as of this encounter Care Teams Travel Director Relationship Specialty Start Date End Date Estrellita Dietz MD [address] [place] [address] PCP - General 11/30/20 documented as of this encounter
--- OUTSIDE RECORDS SUMMARY | 2025-06-01 16:39 | XMS_ITS | Encounter Summary ---
Author Organization [facility] Address [address] [place] [address] Care Team Providers Care Health Type Technician Name Role Phone Estrellita Dietz MD Primary Care Provider [phone] Encounter Details Date Type Department Care Team (Late st Contact Info) Description 08/28/2024 Outside Procedure External Location [address] [place] [address] Provider, Priyank Blum Social History Tobacco Use Types Packs/Day Years Used Date Smoking Tobacco: Never Passive Smoke Exposure: Never Smokeless Tobacco: Never Alcohol Use Standard Drinks/Week Comments Yes 0 (1 standard drink = 0.6 oz pur e alcohol) occ Humiliation, Afraid, Rape, and Kick questionnair e Answer Date Recorded Within the last year, have y ou been afraid of your partner or ex-partner? No 08/22/2024 Within the last year, have y ou been humiliated or emotionally abused in other ways by your partner or ex-partner? No Within the last year, have y ou been kicked, hit, slapped, or otherwise physically hurt by your partner or ex-partner? No 08/22/2024 Within the last year, have y ou been raped or forced to have any kind of sexual activity by your partner or ex-partner? No 08/22/2024 PHQ-2 Answer Date Recorded Patient Health Questionnaire-2 Score 0 08/22/2024 Hunger Vital Sign Answer Date Recorded Within the past 12 months, y ou worried that your food would run out before you got the money to buy more. Never true 08/22/19 Within the past 12 months, t he food you bought just didn't last and you didn't have money to get more. Never true 08/22/2024 PRAPARE - Transportation Answer Date Re corded In the past 12 months, has l ack of transportation kept you from medical appointments or from getting medications? No 09/2024 In the past 12 months, has l ack of transportation kept you from meetings, work, or from getting things needed for daily living? No 08/22/2024 Housing Stability Vital Sign Answer Aj e [...] place to sleep or slept in a long-term (including now)? No 04/15/2024 PHQ-9 Answer Date Recorded Patient Health Questionnaire-9 Score 11 07/05/2024 Housing Stability Vital Sign Answer Aj e Recorded In the last 12 months, was t here a time when you were not able to pay the mortgage or rent on time? No 08/22/2024 In the past 12 months, how m any times have you moved where you were living? 2 08/22/2024 At any time in the past 12 m onths, were you homeless or living in a long-term (including now)? No 08/22/2024 Safety and Environment Answer Date Emiliano rded [...] shut off services in your home? No 08/22/2024 PHQ-2A Answer Date Recorded Patient Health Questionnaire-2 Score 0 05/13/2023 Comments No Sex and Gender Information Value Date Recorded Sex Assigned at Female 01/17/2021 9:05 AM EDT Legal Sex Female 7:49 PM EDT Gender Identity Female 01/17/2021 9:05 AM EDT Sexual Orientation Straight 01/17/2021 9: 05 AM EDT documented as of this encounter Plan of Treatment Not on file documented as of this encounter Procedures Procedure Name Priority Date/Time Associated Diagnosis Comments XR CHEST 1 VIEW 08/28/2024 11:52 PM EST documented in this encounter Results * XR Chest 1 View (08/28/2024 11:52 PM EST) Anatomical Region Laterality Modality Chest Digital Radiogra phy 08/28/2024 11:5 2 PM EST Narrative 08/29/2024 1:06 [place] [address] Name: WILDER MOJICA Exam Date: 08/28/2024 : 2000 Age 23 years Gender: F Physician: ROCIO HASSAN Facility: [facility] Facility HSV: Outpatient Exam: CHEST PORTABLE FINAL REPORT TECHNIQUE: null CLINICAL HISTORY: Chest Pain w/o Trauma/Injury COMPARISON: null FINDINGS: 1 view chest x-ray Comparison: None Findings: No consolidation or large pleural effusion. No pneumothorax. Heart size is normal. No retrocardiac opacity. No acute fracture. IMPRESSION: IMPRESSION: 1. No acute cardiopulmonary process. Authenticated and [facility] Dictated By: Clif Melendez Transcribed By: Transcribed On: 08/29/2024 1:04 AM Electronically signed by: Clif Melendez 08/29/2024 Thank you for referring WILDER MOJICA to [facility]. Legally authenticated by ALFRED GRIFFIN 2024-08-29 01:04:15 Procedure Note Provider, Priyank Blum - 08/29/2024 [facility] [address] [place] [address] Name: WILDER MOJICA Exam Date: 08/28/2024 : 2000 Age 23 years Gender: F Physician: ROCIO HASSAN Facility: [facility] Facility HSV: Outpatient Exam: CHEST PORTABLE FINAL REPORT TECHNIQUE: null CLINICAL HISTORY: Chest Pain w/o Trauma/Injury COMPARISON: null FINDINGS: 1 view chest x-ray Comparison: None Findings: No consolidation or large pleural effusion. No pneumothorax. Heart size is normal. No retrocardiac opacity. No acute fracture. IMPRESSION: IMPRESSION: 1. No acute cardiopulmonary process. Authenticated and [facility] Dictated By: Clif Melendez Transcribed By: Transcribed On: 08/29/2024 1:04 AM Electronically signed by: Clif Melendez 08/29/2024 Thank you for referring WILDER MOJICA to [facility]. Legally authenticated by ALFRED GRIFFIN 2024-08-29 01:04:15 Generic Blum Provider IMG XR PROCEDURES Fi nal Result documented in this encounter Visit Diagnoses Not on filedocumented in this encounter Additional Health Concerns Assessment Noted Time PHQ-9 Depression Total Score: 11 07/05/ 024 2:45 PM EST A fall risk assessment has been complete d for the patient 03/30/2024 3:05 PM EDT A Body Mass Index follow-up plan has been documented for the patient 08/22/2024 10:45 AM EST documented as of this encounter Care Teams Health Type Technician Relationship Specialty Start Date End Date Estrellita Dietz MD [address] [place] [address] PCP - General 11/30/20 documented as of this encounter
--- OUTSIDE RECORDS SUMMARY | 2025-06-01 16:39 | XMS_ITS | Encounter Summary ---
Author Organization Healthcare Address [address] [place] [address] Care Team Providers Care Condominium Manager Name Role Phone Estrellita Dietz MD Primary Care Provider [phone] Encounter Details Date Type Department Care Team (Late st Contact Info) Description 06/19/2022 Outside Procedure External Location [address] [place] [address] Bahman Kumar, TECHNOLOGY INSTRUCTOR [address] [place] [address] Social History Tobacco Use Types [...] Not at all 07/2021 4:05 PM EST Smith Huma C Patient Health Questionnaire-2 Score 0 07/2021 4:05 PM EST Smith Huma C * Calculated C-SSRS Risk Score (Lifetime/Recent) Answer Date of Assessment Author No Risk Indicated 06/19/2022 4:05 PM EST Smith Huma C * Question Answer Date of Assessment Author 1. Wish to be (Past 1 Month) No 022 4:05 PM EST Smith Huma C 2. Non-Specific Active Suici shon Thoughts (Past 1 Month) No 06/19/2022 4:05 PM EST Smith Huma C 6. Suicidal Behavior (Lifetime) No 4:05 PM EST Luis Huma C documented as of this encounter Plan of Treatment Not on file documented as of this encounter Procedures Procedure Name Priority Date/Time Associated Diagnosis Comments XR KNEE LEFT 4+ VIEWS 06/19/2022 4:44 PM EST documented in this encounter Results * XR Knee Left 4+ Views (06/19/2022 4:44 PM EST) Anatomical Region Laterality Modality Lower Extremities, Knee Left [facility] 06/19/2022 4:44 PM EST Narrative 06/20/2022 10:46 [place] [address] Name: WILDER MOJICA Exam Date: 06/19/2022 : 2000 Age 21 Gender: F Physician: BAHMAN KUMAR Facility: [facility] Facility HSV: Outpatient Exam: KNEE 4V MIN LT Left knee 4 VIEW HISTORY: Pain. FINDINGS: No evidence of an acute, displaced fracture or dislocation of the visualized bony architecture. The joint spaces appear normal. IMPRESSION: No acute bony abnormality. Dictated By: Jonathon Hickey Transcribed By: Jonathon Villafana Transcribed On: 06/20/2022 10:34 AM Electronically signed by: Jonathon Hickey 06/20/2022 Thank you for referring WILDER MOJICA to [facility]. Legally authenticated by PASQUALE DURAND 2022-06-20 10:34:39 Procedure Note Provider, [facility] - 06/20/[address] [address] Name: WILDER MOJICA Exam Date: 06/19/2022 : 2000 Age 21 Gender: F Physician: BAHMAN KUMAR Facility: [facility] Facility HSV: Outpatient Exam: KNEE 4V MIN LT Left knee 4 VIEW HISTORY: Pain. FINDINGS: No evidence of an acute, displaced fracture or dislocation ofthe visualized bony architecture. The joint spaces appear normal. IMPRESSION: No acute bony abnormality. Dictated By: Jonathon Hickey Transcribed By: Jonathon Villafana Transcribed On: 06/20/2022 10:34 AM Electronically signed by: Jonathon Hickey 06/20/2022 Thank you for referring WILDER MOJICA to [facility]. Legally authenticated by PASQUALE DURAND 2022-06-20 10:34:39 Bahman Kumar TECHNOLOGY INSTRUCTOR IMG XR PROCEDURES Final R esult documented in this encounter Visit Diagnoses Not on filedocumented in this encounter Additional Health Concerns Assessment Noted Time A fall risk assessment has been complete d for the patient 06/19/2022 4:06 PM EST documented as of this encounter Care Teams Condominium Manager Relationship Specialty Start Date End Date Estrellita Dietz MD [address] [place] [address] PCP - General 11/30/20 documented as of this encounter
--- OUTSIDE RECORDS SUMMARY | 2025-06-01 16:39 | XMS_ITS | Encounter Summary ---
Author Organization [facility] Address [address] [place] [address] Care Team Providers Care Acquisitions Editor Name Role Phone Estrellita Dietz MD Primary Care Provider [phone] Encounter Details Date Type Department Care Team (Late st Contact Info) Description 05/31/2025 Telephone Obstetrics & Gynecology [address] [place] [address] Nicolas Medina MD [address] [place] [address] Social History Tobacco Use Types Packs/Day Years [...] any time in the past 12 m [facility], were you homeless or living in a correction (including now)? No 05/17/2025 [facility] Utilities Answer Date Recorded In the [...] as of this encounter Miscellaneous Notes * Telephone Encounter - Aylin Gardner - 05/31/2025 2:21 PM EST Called pt and scheduled apt for progesterone to be checked. Pt voiced understanding. * Telephone Encounter - Rose Harry - 05/31/2025 1:52 PM EST Clinical Concern/Question Reason for Call: pt wants to come in to get her progesterone checked but specifically wants to be seen by Louise; pt wants a call back to see if she's in; please call Best contact number: [phone] (mobile) Optimal time of day to reach caller: ANYTIME Additional comments/information from caller: Not Applicable Note: Please do not reply to this message. Follow-up communication and further actions as a result of this message need to be communicated with the patient directly, if the patient is not active onMyChart. If the patient is active on MyChart, they will receive notification of the communication/outcome via [email or web address]. documented in this encounter Plan of Treatment Not on file documented as of this encounter Visit Diagnoses Not on filedocumented [...] documented as of this encounter Care Teams Acquisitions Editor Relationship Specialty Start Date End Date Estrellita Dietz MD [address] [place] [address] PCP - General 11/30/20 documented as of this encounter
--- OUTSIDE RECORDS SUMMARY | 2025-06-01 16:39 | XMS_ITS | Encounter Summary ---
Author Organization [facility] Address [address] [place] [address] Care Team Providers Care Customer Relationship Specialist Name Role Phone Estrellita Dietz MD Primary Care Provider [phone] Encounter Details Date Type Department Care Team (Latest Contact Info) Description 05/31/2025 Travel Social History Tobacco Use Types Packs/Day Years [...] and Family Not on file 05/17/2025 Attends Sikh Services Not on file 05/17 Active Member [...] were you homeless or living in a jail (including now)? No 05/17/2025 [facility] Utilities Answer Date Recorded In the past 12 months has e electric, gas, oil, or water company [...] Time PHQ-9 Depression Total Score: 0 05/22/20 3:13 PM EST A fall risk assessment has been complete d for the patient 05/22/2025 3:13 PM EST A Body Mass Index follow-up plan has been documented for the patient 05/31/2025 2:39 PM EST documented as of this encounter Care Teams Customer Relationship Specialist Relationship Specialty Start Date End Date Estrellita Dietz MD [address] [place] [address] PCP - General 11/30/20 documented as of this encounter
--- OUTSIDE RECORDS SUMMARY | 2025-06-01 16:39 | XMS_ITS | Encounter Summary ---
Author Organization [facility] Address [address] [place] [address] Care Team Providers Care Drupal Web Developer Name Role Phone Estrellita Dietz MD Primary Care Provider [phone] Reason for Visit * Reason Onset Date Comments PT NEEDS NEW OB APPT- DR CANTU 05/17/2025 Encounter Details Date Type Department Care Team (Late st Contact Info) Description 05/17/2025 Telephone [facility] OBGYN [address] [facility] [address] [place] [address] Esme Cantu MD [address] [facility] [address] [place] [address] PT NEEDS NEW OB APPT- DR CANTU Social History Tobacco Use Types Packs/Day Years Used Date Smoking Tobacco: Never Assessed Estimated Date of Delivery Comme nts Yes 06/09/2025 Sex and Gender Information Value Date Recorded Sex Assigned at Not on file Legal Sex Female 12:30 PM EDT Gender Identity Not on file Sexual Orientation Not on file documented as of this encounter Miscellaneous Notes * Telephone Encounter - Inna Nick RegSched Rep - 05/17/2025 11:41 AM EDT Hub staff attempted to follow warm transfer process and was unsuccessful Caller: Spencer Mojica Relationship to patient: Self Best call back number: [phone] Patient is needing: TO SCHEDULE NEW OB APPT W/ DR CANTU LMP 04/16/25 PLEASE CALL documented in this encounter Plan of Treatment Not on file documented as of this encounter Visit Diagnoses Not on filedocumented in this encounter Care Teams Drupal Web Developer Relationship Specialty Start Date End Date Estrellita Dietz MD [address] [place] [address] PCP - General Family Medicine 07/21/18 documented as of this encounter
--- OUTSIDE RECORDS SUMMARY | 2025-06-01 16:39 | XMS_ITS | Encounter Summary ---
Author Organization [facility] Address [address] [place] [address] Care Team Providers Care Electromedical Equipment Technician Name Role Phone Estrellita Dietz MD Primary Care Provider [phone] Encounter Details Date Type Department Care Team (Late st Contact Info) Description 04/25/2024 Outside Procedure External Location [address] [place] [address] Provider, [facility] [place] Social History Tobacco Use Types Packs/Day Years Used Date Smoking Tobacco: Never Passive Smoke Exposure: Never Smokeless Tobacco: Never Alcohol Use Standard Drinks/Week Comments Yes 0 (1 standard drink = 0.6 oz pur e alcohol) Humiliation, Afraid, Rape, and Kick questionnair e Answer Date Recorded Within the last year, have y ou been afraid of your partner or ex-partner? No 04/15/2024 Within the last year, have y ou been humiliated or emotionally abused in other ways by your partner or ex-partner? No Within the last year, have y ou been kicked, hit, slapped, or otherwise physically hurt by your partner or ex-partner? No 04/15/2024 Within the last year, have y ou been raped or forced to have any kind of sexual activity by your partner or ex-partner? No 04/15/2024 PHQ-2 Answer Date Recorded Patient Health Questionnaire-2 Score 0 04/15/2024 Hunger Vital Sign Answer Date Recorded Within the past 12 months, y ou worried that your food would run out before you got the money to buy more. Never true 04/15/20 24 Within the past 12 months, t he food you bought just didn't last and you didn't have money to get more. Never true 04/15/2024 PRAPARE - Transportation Answer Date Re corded In the past 12 months, has l ack of transportation kept you from medical appointments or from getting medications? No 03/21 In the past 12 months, has l ack of transportation kept you from meetings, work, or from getting things needed for daily living? No 04/15/2024 Housing Stability Vital Sign Answer Aj e [...] place to sleep or slept in a chcf (including now)? No 04/15/2024 Safety and Environment Answer Date Emiliano rded Do you worry that your child may have been physically abused? No 04/15/2024 Do you worry that your child may have been sexua lly abused? No 04/15/2024 Are there any guns kept in o r around your home or where your child spends time? No 04/15/2024 Guns Unloaded or Locked Away Not on file Utilities Answer Date Recorded In the past 12 months has th e electric, gas, oil, or water company threatened to shut off services in your home? No 04/15/2024 PHQ-2A Answer Date Recorded Patient Health Questionnaire-2 [...] Name Priority Date/Time Associated Diagnosis Comments XR HAND LEFT 3+ VIEWS 04/25/2024 5:31 PM EDT documented in this encounter Results * XR Hand Left 3+ Views (04/25/2024 5:31 PM EDT) Anatomical Region Laterality Modality Upper Extremities, Hand Left Digital Radiography 04/25/2024 5:31 PM EDT Narrative 04/25/2024 5:57 [place] [address] Name: WILDER MOJICA Exam Date: 04/25/2024 : 2000 Age 23 years Gender: F Physician: ROCIO HASSAN Facility: [facility] Facility HSV: Outpatient Exam: HAND LT 3V LEFT HAND COMPLETE HISTORY:Left hand pain. COMPARISON:None VIEWS:Minimum of 3 views. FINDINGS: No fracture or malalignment.No significant degenerative changes. IMPRESSION: No acute findings. Electronically signed by:Delroy Russell MD04/25/2024 05:55 PM EDT RP Dictated By: Delroy Russell Transcribed By: Transcribed On: 04/25/2024 5:51 PM Electronically signed by: Delroy Russell 04/25/2024 Thank you for referring WILDER MOJICA to [facility]. Legally authenticated by ALYCE HAN 2024-04-25 17:51:15 Procedure Note Provider, [facility] - 04/25/2024 [place] [address] Name: WILDER MOJICA Exam Date: 04/25/2024 : 2000 Age 23 years Gender: F Physician: ROCIO HASSAN Facility: [facility] Facility HSV: Outpatient Exam: HAND LT 3V LEFT HAND COMPLETE HISTORY:Left hand pain. COMPARISON:None VIEWS:Minimum of 3 views. FINDINGS: No fracture or malalignment.No significant degenerative changes. IMPRESSION: No acute findings. Electronically signed by:Delroy Russell MD04/25/2024 05:55 PM EDT RP Dictated By: Delroy Russell Transcribed By: Transcribed On: 04/25/2024 5:51 PM Electronically signed by: Delroy Russell 04/25/2024 Thank you for referring WILDER MOJICA to [facility]. Legally authenticated by ALYCE HAN 2024-04-25 17:51:15 Generic [place] Provider IMG XR PROCEDURES Fi nal Result documented in this encounter Visit Diagnoses Not on filedocumented in this encounter Additional Health Concerns Assessment Noted Time A fall risk assessment has been complete d for the patient 03/30/2024 3:05 PM EDT A Body Mass Index follow-up plan has been documented for the patient 04/15/2024 1:55 PM EDT documented as of this encounter Care Teams Electromedical Equipment Technician Relationship Specialty Start Date End Date Estrellita Dietz MD [address] [place] [address] PCP - General 11/30/20 documented as of this encounter
--- OUTSIDE RECORDS SUMMARY | 2025-06-01 16:39 | XMS_ITS | Clinical Summary ---
Author Organization [facility] Address [address] [place], [place] [address] Phone [email or web address] Care Team Providers Care Pharmacy Scheduler Name Role Phone Unavailable Primary Care Provider Unavailabl e Allergies Active Allergy Reactions Criticality Noted Date Comments Azithromycin Rash Low 12/08/2008 Active Problems No known active problems Social History Tobacco Use Types Packs/Day Years Used Date Smoking Tobacco: Every Day E-Cigarettes Smokeless Tobacco: Never Intimate Partner Violence Answer Date R ecorded Insults You Not on file 04/23/2022 Threatens You Not on file 04/23/2022 Screams at You Not on file 04/23/2022 Physically Hurt Not on file 04/23/2022 Intimate Partner Violence Score Not on file 04/23/2022 Stress Answer Date Recorded Stress in your Life Not on file 05/25/2024 Dealing with Stress 3 05/25/2024 Comments Unknown Sex and Gender Information Value Date Recorded Sex Assigned at Not on file Legal Sex Female 12:03 PM CDT Gender Identity Not on file Sexual Orientation Not on file Last Filed Vital Signs Vital Sign Reading Time Taken Comments Blood Pressure 101/79 04/23/2022 1:36 PM EDT Pulse 70 04/23/2022 1:36 PM EDT Temperature - - Respiratory Rate - - Oxygen Saturation 99% 04/23/2022 1:36 PM EDT Inhaled Oxygen Concentration - - Weight - - Height - - Body Mass Index - - Plan of Treatment Health Maintenance Due Date Last Done Comments Cervical Cancer Screening Combo 2002 Dental Cleaning/Exam 2002 HIV Screening 2002 HPV only / HPV + Pap 2002 Hepatitis C Screening 2002 Pap only testing 2002 Men B Immunization (1 of 2 - Standard) 2018 Annual Preventive Exam 2020 Hep B Infection Screening - Triple Screen 2020 Pneumococcal Immunization (1 of 2 - PCV) 2021 Tetanus Diphtheria and Pertussis Immunization (7 - Td or Tdap) 01/19/2024 01/18/2014, 12/09/2006, 03/01/2004, Additional history exists Covid-19 Immunization (1 - 2024- season) 2025 Influenza Immunization (#1) 2025 Hepatitis B Immunization Completed 004, 05/02/2003, 02/17/2003 HIB Immunization Completed 12/09/2006, , 05/02/2003, Additional history exists Polio Immunization Completed 12/09/2006, 0 12/19/2003, 05/02/2003, Additional history exists Meningococcal Immunization Aged Out 01/18/2014 N o longer eligible based on patient's age to complete this topic Varicella Immunization Completed 01/18/2014, 2003 HPV Immunization Completed 01/30/2016, , 01/18/2014 Hepatitis A Immunization Completed 05/19/2018, 10/18
--- OUTSIDE RECORDS SUMMARY | 2025-06-01 16:39 | XMS_ITS | Encounter Summary ---
Author Organization [facility] Address [address] [place] [id number] Care Team Providers Care School Business Administrator Name Role Phone Estrellita Dietz MD Primary Care Provider [phone] Reason for Visit * Reason On[place] Date Comments Appointment 05/23/2025 Encounter Details Date Type Department Care Team (Late st Contact Info) Description 05/23/2025 Telephone [facility] OBGYN [address] [address] Esme Cantu MD [address] [facility] [address] [place] [address] Appointment Social History Tobacco Use Types Packs/Day Years Used Date Smoking Tobacco: Never Assessed Estimated Date of Delivery Comme nts Yes 06/09/2025 Sex and Gender Information Value Date Recorded Sex Assigned at Not on file Legal Sex Female 12:30 PM EDT Gender Identity Not on file Sexual Orientation Not on file documented as of this encounter Miscellaneous Notes * Telephone Encounter - Allie Nance RegSched Rep - 05/23/2025 10:24 AM EST RETURNED CALL, PT WANTED TO KEEP APPT IS SINCE THERE WAS NOTHING EARLIER IN [facility] * Telephone Encounter - Cora Roa RegSched Rep - 05/23/2025 9:50 AM EST Provider: Esme Cantu MD Caller: Spencer Mojica Female, 24 y.o., 2000 CSN: [id number] Reason for Call: PT REQ NEW OB APPT ON 06-21-25 BE AT [facility] LOC[facility] INSTEAD OF [facility], UNABLE TOWARM TRANSFER, PT REQ A CALL BACK PT DOES NOT PREFER TO BE SEEN AT [facility] LOCATION DUE TO BEING TOLD SHE WASN'T CONSIDERED HIGH RISK documented in this encounter Plan of Treatment Not on file documented as of this encounter Visit Diagnoses Not on filedocumented in this encounter Care Teams School Business Administrator Relationship Specialty Start Date End Date Estrellita Dietz MD [address] [place] [address] PCP - General Family Medicine 07/21/18 documented as of this encounter
--- OUTSIDE RECORDS SUMMARY | 2025-06-01 16:39 | XMS_ITS | Clinical Summary ---
Author Organization [facility] Address [address] [place] [address] Care Team Providers Care Clinical Cytogeneticist Name Role Phone Estrellita Dietz MD Primary Care Provider [phone] Allergies Active Allergy Reactions Criticality Noted Date Comments Azithromycin Hives 11/07/2024 Encounters Date Type Department Care Team Description 05/23/2025 Telephone [facility] OBGYN [address] [facility] [address] [place] [address] Esme Cantu MD Appointment 05/17/2025 Telephone [facility] OBGYN [address] [facility] [address] [place] [address] Esme Cantu MD PT NEEDS NEW OB APPT- DR CANTU from Last 3 Months Social History Tobacco Use Types Packs/Day Years Used Date Smoking Tobacco: Never Assessed Estimated Date of Delivery Comme nts Yes 06/09/2025 Sex and Gender Information Value Date Recorded Sex Assigned at Not on file Legal Sex Female 12:30 PM EDT Gender Identity Not on file Sexual Orientation Not on file Last Filed Vital Signs Vital Sign Reading Time Taken Comments Blood Pressure 102/64 11/07/2024 2:21 PM EDT Pulse 84 11/07/2024 2:21 PM EDT Temperature 36.6 C (97.8 F) 11/07/2024 2:21 PM EDT Respiratory Rate 18 11/07/2024 2:21 PM EDT Oxygen Saturation 99% 11/07/2024 2:21 PM EDT Inhaled Oxygen Concentration - - Weight 57.6 kg (127 lb) 11/07/2024 2:21 PM EDT Height 157.5 cm (5' 2 ) 11/07/2024 2:21 PM EDT Body Mass Index 23.23 11/07/2024 2:21 PM EDT Plan of Treatment Health Maintenance Due Date Last Done Comments Annual Gynecologic Pelvic an d Breast Exam 2002 MENINGOCOCCAL B VACCINE (1 o f 2 - Standard) 2018 Pneumococcal Vaccine 0-49 (1 of 2 - PCV) 2021 PAP SMEAR 12/05/2023 TDAP/TD VACCINES (2 - Td or Tdap) 01/19/2024 01/18/2014 INFLUENZA VACCINE 02/17/2025 ANNUAL PHYSICAL 05/17/2025 MENINGOCOCCAL VACCINE Aged Out 01/18/2014 No syed harpal eligible based on patient's age to complete this topic HPV VACCINES Completed 01/30/2016, 10/12/2014, 01/18/2014 CHLAMYDIA SCREENING Discontinued 10/28/2024 HEPATITIS C SCREENING Completed 10/28/2024 , 10/28/2024, 11/14/2022 RSV Vaccine - Adults (No Doses Required) Completed Insurance Member Subscriber Plan / Payer (Ef fective 2020-Present) Name:Spencer Mojica Relation to Subscriber:Child Name:Maico Mojica Date of :1973 (Home) Address: [address] [place] [address] Payer ID:[id number] (NAIC) Type:Not on file Address: [facility] [id number] Care Teams Clinical Cytogeneticist Relationship Specialty Start Date End Date Estrellita Dietz MD [address] [place] [address] PCP - General Family Medicine 07/21/18
--- OUTSIDE RECORDS SUMMARY | 2025-06-01 16:39 | XMS_ITS | Encounter Summary ---
Author Organization [facility] Address [address] [place] [address] Care Team Providers Care Medical Photographer Name Role Phone Estrellita Dietz MD Primary Care Provider [phone] Encounter Details Date Type Department Care Team (Late st Contact Info) Description 09/19/2024 Outside Procedure External Location [address] [place] [address] Provider, [facility] [place] Social History Tobacco Use Types Packs/Day Years [...] Date Recorded Patient Health Questionnaire-2 Score 0 09/22/2024 Hunger Vital Sign Answer Date Recorded Within [...] place to sleep or slept in a mcc (including now)? No 04/15/2024 PHQ-9 Answer Date [...] living in a mcc (including now)? No 08/22/2024 Safety and Environment [...] pleasure in doing things Not at all 09/22/2024 11:10 AM Cielo Toledo RN Feeling down, depressed, or hopeless Not at all 09/22/2024 11:10 AM Cielo Toledo RN Patient Health Questionnaire-2 Score 0 09/22/2024 11:10 AM Cielo Toledo RN documented as of this encounter Plan of Treatment Not on file documented as of this encounter Procedures Procedure Name Priority Date/Time Associated Diagnosis Comments CT ABDOMEN PELVIS W IV CONTRAST 09/19/2024 8:21 PM EST documented in this encounter Results * CT Abdomen Pelvis w IV Contrast (09/19/2024 8:21 PM EST) Anatomical Region Laterality Modality Abdomen, Pelvis Computed Tomogra phy 09/19/2024 8:21 PM EST Narrative 09/19/2024 9:37 [place] [address] Name: WILDER MOJICA Exam Date: 09/19/2024 : 2000 Age 23 years Gender: F Physician: [facility] [place] Facility: [facility] Facility HSV: Outpatient Exam: CT ABD PEL W (IV CONT ONLY) FINAL REPORT TECHNIQUE: null CLINICAL HISTORY: Abdominal Pain, RUQ PAIN TODAY COMPARISON: null FINDINGS: CT abdomen and pelvis without contrast Comparison: None Findings: Diffuse esophageal mural thickening, nonspecific. Hepatic steatosis noted. Contracted gallbladder. Distended stomach. No bowel obstruction. Normal appendix. Possible small bilateral adnexal cysts. Trace free pelvic fluid. The bones are intact. IMPRESSION: IMPRESSION: Suspect ruptured adnexal cysts with trace free pelvic fluid. Authenticated and EASTERN Dictated By: Raymond Gray Transcribed By: Transcribed On: 09/19/2024 9:33 PM Electronically signed by: Raymond Gray 09/19/2024 Thank you for referring WILDER MOJICA to [facility]. Legally authenticated by BROOKS REGAN 2024-09-19 21:33:54 Procedure Note Provider, [facility] 09/19/2024 [place] [address] Name: WILDER MOJICA Exam Date: 09/19/2024 : 2000 Age 23 years Gender: F Physician: [facility] [place] Facility: [facility] Facility HSV: Outpatient Exam: CT ABD PEL W (IV CONT ONLY) FINAL REPORT TECHNIQUE: null CLINICAL HISTORY: Abdominal Pain, RUQ PAIN TODAY COMPARISON: null FINDINGS: CT abdomen and pelvis without contrast Comparison: None Findings: Diffuse esophageal mural thickening, nonspecific. Hepatic steatosis noted. Contracted gallbladder. Distended stomach. No bowel obstruction. Normal appendix. Possible small bilateral adnexal cysts. Trace free pelvic fluid. The bones are intact. IMPRESSION: IMPRESSION: Suspect ruptured adnexal cysts with trace free pelvic fluid. Authenticated and EASTERN Dictated By: Raymond Gray Transcribed By: Transcribed On: 09/19/2024 9:33 PM Electronically signed by: Raymond Gray 09/19/2024 Thank you for referring WILDER MOJICA to [facility]. Legally authenticated by BROOKS REGAN 2024-09-19 21:33:54 Generic [place] Provider IMG CT PROCEDURES Fi nal Result documented in this encounter Visit Diagnoses Not on filedocumented in this encounter Additional Health Concerns Assessment Noted Time PHQ-9 Depression Total Score: 11 07/05/ 024 2:45 PM EST A fall risk assessment has been complete d for the patient 03/30/2024 3:05 PM EDT A Body Mass Index follow-up plan has been documented for the patient 09/13/2024 4:11 PM EST documented as of this encounter Care Teams Medical Photographer Relationship Specialty Start Date End Date Estrellita Dietz MD [address] [place] [id number] PCP - General 11/30/20 documented as of this encounter
--- OUTSIDE RECORDS SUMMARY | 2025-06-01 16:39 | XMS_ITS | Encounter Summary ---
Author Organization [facility] Address [address] [place] [address] Care Team Providers Care Entry Engineer Name Role Phone Estrellita Dietz MD Primary Care Provider [phone] Encounter Details Date Type Department Care Team (Latest Contact Info) Description 05/24/2025 Travel Social History Tobacco Use Types Packs/Day [...] any time in the past [address] [facility], were you homeless or living in a [facility] (including now)? No 05/17/2025 [facility] Utilities Answer Date Recorded In the [...] documented as of this encounter Care Teams Entry Engineer Relationship Specialty Start Date End Date Estrellita Dietz MD [address] [place] [id number] PCP - General 11/30/20 documented as of this encounter
--- OUTSIDE RECORDS SUMMARY | 2025-06-01 16:39 | XMS_ITS | Encounter Summary ---
Author Organization [facility] Address [address] [place] [address] Care Team Providers Care Deputy Probation Officer Name Role Phone Estrellita Dietz MD Primary Care Provider [phone] Encounter Details Date Type Department Care Team (Late st Contact Info) Description 05/24/2025 Results Follow-Up Obstetrics & Gynecology [address] [place] [address] Nicolas Medina MD [address] [place] [address] Social History Tobacco Use Types [...] and Family Not on file 05/17/2025 Attends Holiness Services Not on file 05/17 Active Member [...] in a prison (including now)? No 05/17/2025 [facility] Utilities Answer Date Recorded In [...] documented as of this encounter Care Teams Deputy Probation Officer Relationship Specialty Start Date End Date Estrellita Dietz MD [address] [place] [address] PCP - General 11/30/20 documented as of this encounter
--- OUTSIDE RECORDS SUMMARY | 2025-06-01 16:39 | XMS_ITS | Clinical Summary ---
Author Organization [facility] Address [address] [place] [address] Care Team Providers Care Parking Patroller Name Role Phone Estrellita Dietz MD Primary Care Provider [phone] Allergies Active Allergy Reactions Criticality Noted Date Comments Azithromycin Rash Low 12/08/2008 Medications meclizine (Antivert) 25 MG tabletIndicatio ns:Vertigo Take 1 tablet by mouth 3 times a day as needed for dizziness. 30 tablet 1 5 04/06/20 26 Active Additional Information Patient not taking.Reported on 05/17/2025 MV & Min w/FA-DHA ( ADULT GUMMY/DHA/FA PO) Take by mouth. Activ e progesterone (Prometrium) 200 MG capsule Take 1 capsule by mouth nightly. 90 capsule 3 5 Active Active Problems Problem Noted Date Diagnosed Date Incomplete spontaneous 11/24/2024 9 weeks gestation of 11/18/2024 Missed 11/18/2024 Chlamydia infection affecting in first trimester 11/01/2024 Nausea and vomiting in pregn ramos prior to 22 weeks gestation 10/14/2024 Irritable bowel syndrome 05/26/2024 Anxiety 05/25/2024 Current mild episode of ron r depressive disorder without prior episode 05/25/2024 Migraine without aura and wi thout status migrainosus, not intractable 04/06/2023 Eczema 07/23/2021 Generalized hypermobility of joints 12/11/2020 Dairy allergy 08/05/2018 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 08/05/2018 Exercise-induced asthma 10/10/2016 Allergic rhinitis 10/14/2014 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/14/2014 ADHD, 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 Estimated Date of Delivery Comme nts Yes 01/21/2026 Based on last me nstrual period of 04/16/2025 Resolved Problems Problem Noted Date Diagnosed Date Resolved Date Less than 8 weeks gestation of 10/14/2024 11/18/2024 Dysmenorrhea 07/23/2021 04/09/2025 Encounters Date Type Department Care Team Description 06/01/2025 Results Follow-Up Obstetrics & Gynecology [address] [place] [address] Nicolas Medina MD 05/31/2025 3:15 PM EST Clinical Support Obstetrics & Gynecology [address] [place] [address] , unspecified gestational age (Primary Dx) 05/31/2025 Travel 05/31/2025 Telephone Obstetrics & Gynecology [address] [place] [address] Nicolas Medina MD 05/24/2025 11:00 AM EST Clinical Support Obstetrics & Gynecology [address] [place] [address] test positive (Primary Dx) 05/24/2025 Results Follow-Up Obstetrics & Gynecology [address] [place] [address] Nicolas Medina MD 05/24/2025 Travel 05/24/2025 Telephone Obstetrics & Gynecology [address] [place] [address] Nicolas Medina MD 05/23/2025 Results Follow-Up Obstetrics & Gynecology [address] [place] [address] Nicolas Medina MD 05/23/2025 Telephone Obstetrics & Gynecology [address] [place] [address] Nicolas Medina MD 05/22/2025 3:30 PM EST Ancillary Procedure Obstetrics & Gynecology [address] [place] [address] Unsure of LMP (last menstrual period) as reason for ultrasound scan 05/22/2025 3:00 PM EST Initial Obstetrics & Gynecology [address] [place] [address] Nicolas Medina MD GA: 5w1d 05/22/2025 Travel 05/22/2025 Results Follow-Up [facility] [address] [place] [address] Halle Waldrop MD 05/19/2025 1:15 PM EDT Clinical Support [facility] [address] [place] [address] Positive test (Primary Dx) 05/19/2025 Travel 05/18/2025 Travel 05/18/2025 Telephone Obstetrics & Gynecology [address] [place] [address] Nicolas Medina MD Appointment (05/18/25 scheduled appt per WorkQ- pt requested an appt to confirm and address concerns- pt does NOT want to see Dr Lopez or the clinic staff who assisted Dr Lopez when pt was at her last appt w/ Dr Lopez ZMT/) 05/18/2025 Results Follow-Up [facility] [address] [place] [address] [place] 05/18/2025 Orders Only [facility] [address] [place] [address] Halle Waldrop MD Positive test (Primary Dx) 05/18/2025 Telephone [facility] [address] [place] [address] Estrellita Dietz MD Results 05/17/2025 3:20 PM EDT Office Visit [facility] [address] [place] [address] Halle Waldrop MD Missed period (Primary Dx); Positive test 05/17/2025 Travel 05/17/2025 Telephone [facility] [address] [place] [address] Estrellita Dietz MD HCN Clinical Concern/Question 04/06/2025 3:00 PM EDT Office Visit [facility] [address] [facility] [place] [address] Kathleen Lizarraga APRN Vertigo (Primary Dx); Episodic lightheadedness 04/06/2025 Travel from Last 3 Months Immunizations Immunization Administration Dates Next Due DTaP 12/09/2006, 4,07/22/2003,05/02,02/17/2003 HPV, Quadrivalent 01/30/2016,10/12/2014,01/19/20 14 Hep A, ped/adol, 2 dose 05/19/2018,10/29/2017 Hep B, Adolescent or Pediatric 03/01/2004,2002,02/17/2003 HiB, unspecified 12/09/2006, 4,05/02/2003,02/17 IPV 12/09/2006, 4,05/02/2003,02/17 MMR 12/09/2006,12/19/2003 Meningococcal MCV4P 01/18/2014 Moderna COVID-19 Vaccine (Re d Cap) 12+ years 08/30/2021,07/21/2021 Tdap 01/18/2014 Varicella 01/18/2014,12/19/2003 Family History * Patient is adopted Medical History Relation Name Comments Crohn's disease Mother Adopted Other Relation Name Status Comments Mother Other Social History Tobacco Use Types Packs/Day Years [...] and Family Not on file 05/17/2025 Attends Congregation Services Not on file 05/17 Active Member [...] any time in the past 12 m [facility] [place], were you homeless or living in a fci (including now)? No 05/17/2025 [facility] Utilities Answer Date Recorded In the past 12 months has [employer] electric, gas, oil, or water company threatened [...] Orientation Straight 01/17/2021 9: 05 AM EDT Last Filed Vital Signs Vital Sign Reading Time Taken Comments Blood Pressure 111/67 05/22/2025 3:05 PM EST Pulse 95 05/22/2025 3:05 PM EST Temperature 37.8 C (100 F) 05/22/2025 3:05 PM EST Respiratory Rate 18 05/17/2025 3:01 PM EDT Oxygen Saturation 100% 05/22/2025 3:05 PM EST Inhaled Oxygen Concentration - - Weight 60 kg (132 lb 4.4 oz) 05/22/2025 3:05 PM EST Height 157.5 cm (5' 2 ) 05/17/2025 3:01 PM EDT Body Mass Index 24.19 05/17/2025 3:01 PM EDT Plan of Treatment Health Maintenance Due Date Last Done Comments [facility]-DTaP,Tdap,and Td Vaccines (7 - Td or Tdap) 07/19/2025 01/18/2014, 12/09/2006, 03/01/2004, Additional history exists Postponed from 01/19/2024 (Other Patient Reasons) [facility]-Pneumococcal Vaccine: Pediatrics (0 to 5 Years) and At-Risk Patients (6 to 49 Years) (1 of 2 - PCV) 07/19/2025 Postponed from 2021 (Other Patient Reasons) [facility]- SDOH Screenings 11/15/2025 [facility]-Adult SDOH Screenings 11/15/2025 05/17/2025 [facility]-/Child/Adol SDOH Screenings 11/15/2025 05/17/2025 [facility]-Chlamydia and Gonorrhea Screening 05/22/2026 05/22/2025, 05/22/2025, 10/28/2024, Additional history exists [facility]-Depression Screening 05/22/2026 05/22/2025, 1109/2024 [facility]-Pap Smear 03/18/2027 [facility]-Zoster Vaccines (1 of 2) 2052 01/18/2014, 12/19/2003 [facility]-Hepatitis B Vaccines Completed 004, 05/02/2003, 02/17/2003 [facility]-HIB Vaccines Completed 12/09/2006, , 05/02/2003, Additional history exists [facility]-IPV Vaccines Completed 12/09/2006, 07/2003, 05/02/2003, Additional history exists [facility]-Varicella Vaccines Completed 01/18/2014, 2003 HPV Vaccines Completed 01/30/2016, 09/18, 01/18/2014 [facility]-Hepatitis A Vaccines Completed 05/19/2018, 10/18 [id number] Vaccine Discontinued 08/30/2021, 07/21/19 [facility]-HIV Screening Completed 05/22/2025, , 11/14/2022 [facility]-Hepatitis C Screening Completed 2024, 10/28/2024, 11/14/2022 [facility]-Influenza Vaccine Discontinued [facility]-RSV Vaccine: 60+ Years or (No Doses Required) Completed [facility]-Rotavirus Vaccines Aged Out No lo nger eligible based on patient's age to complete this topic Procedures Procedure Name Priority Date/Time Associated Diagnosis Comments HCG, QUANTITATIVE Routine 05/31/2025 2:5 1 PM EST , unspecified gestational age PROGESTERONE III Routine 05/31/2025 2:39 PM EST , unspecified gestational age HCG, QUANTITATIVE Routine 05/24/2025 10: 42 AM EST test positive HIV 1/2 ANTIBODY/ANTIGEN SCREEN WITH REFLEX TO [...] scan state, incidental HIV 1/2 ANTIBODY/ANTIGEN SCREEN W/REFLEX TO HIV [...] as reason for ultrasound scan state, incidental OB US TRANSVAGINAL Routine 05/22/2025 3: 29 PM EST Unsure of LMP (last menstrual period) as reason for ultrasound scan HCG, QUANTITATIVE Routine 05/19/2025 11: 21 AM EDT Positive test HCG, QUANTITATIVE Add-On 05/17/2025 3:4 3 PM EDT Positive test TEST QUALITATIVE PLASMA Routine 05/17/2025 3:43 PM EDT Missed period POCT , URINE Routine 05/17/2025 3:27 PM EDT Missed period from Last 3 Months Results * (ABNORMAL) hCG, Total Beta, Quantitative, Plasma (05/31/2025 2:51 PM EST) Only the most recent of5 resultswithin the time period is included. hCG, Total Beta 7,199(H) <5 mIU/mL 05/31/2025 7:26 PM EST [facility] Blood Venous blood specimen / Unknown Venipuncture / Unknown 05/31/2025 2:51 PM EST 05/31/2025 6:[address] [facility] - 05/31/2025 7:26 PM EST Patients: [...] methods or kits cannot be used interchangeably. Nicolas Medina MD LAB BLOOD ORDERABLES Final Resu lt [facility] [address] [place] [address] * Progesterone (05/31/2025 2:39 PM EST) Only the most recent of2 resultswithin the time period is included. Progesterone III 15.4 Reference Range not established ng/mL 05/31/2025 7:24 PM EST [facility] Blood Venous blood specimen / Unknown Venipuncture / Unknown 05/31/2025 2:39 PM EST 05/31/2025 6:[address] [facility] - 05/31/2025 7:24 PM EST Menstrual Cycle Phase Reference Intervals: Females, 18 Y and up (ng/mL) Follicular <= 0.33 Ovulation <= 2.35 Luteal 0.5-21 Post-Menopausal <0.2 reference Intervals (ng/mL): 1st Trimester 11 - 45 2nd Trimester 25 - 84 3rd Trimester 58 - 214 Result [facility] us Nicolas Medina MD LAB BLOOD ORDERABLES Final Resu lt Performing Organization Address [facility] Co de Phone Number [facility] [address] [place] [address] * Treponema Pallidum (Syphilis) Antibodies with Reflex to RPR and RPR Titer (Those with NO known Syphilis) (05/22/2025 3:52 PM EST) Pathologist [facility] Syphilis Antibody (IgG+IgM) Nonreactive Nonreactive 05/22/2025 8:35 PM EST [facility] Comment:Nonreactive. No sero logic evidence of syphilis. No follow-up necessary unless clinically indicated (e.g., early syphilis). Blood Venous blood specimen / Unknown Venipuncture / Unknown 05/22/2025 3:52 PM EST 05/22/2025 6:48 PM EST Result Claudia Medina MD LAB BLOOD ORDERABLES Final Resu lt Performing Organization Address [facility] Co de Phone Number [facility] [address] [place] [address] * Chlamydia trachomatis DNA by PCR (05/22/2025 3:52 PM EST) Pathologist [facility] Chlamydia trachomatis DNA PCR Result Not Detected Not Detected 05/23/2025 2:37 PM EST [facility] Urine Urine specimen obtained by clean catch procedure / Unknown Non-blood Collection / Unknown 05/22/2025 3:52 PM EST 05/22/2025 6:[address] [facility] - 05/23/2025 2:37 PM EST This test is performed by the [employer] instrument for Real Time PCR C. trachomatis and N. gonorrhea. This test is FDA approved for use with endocervical, vaginal, and urine specimens. This test is used for clinical purposes. It should not be regarded as invesigational or for research. The [facility] is certified under the Clinical Laboratory Improvement Amendments of 1988 (CLIA-88) as qualified to perform high complexity clinical laboratory testing. Result Claudia Medina MD LAB MICROBIOLOGY - GENERAL ORDE [facility] Final Result Performing Organization Address City/[facility]/ZIP Co de Phone Number [facility] [address] [place] [address] * HIV 1 & 2 Antibody/Antigen Screen (05/22/2025 3:52 PM EST) Pathologist [facility] HIV 1 & 2 Antibody/Antigen Screen Non Reactive Non Reactive 05/22/2025 7:[address] [facility] Comment:Screening for HIV 1 & 2 antibodies, and P24 antigen is NONREACTIVE. No confirmatory testing is required. Blood Venous blood specimen / Unknown Venipuncture / Unknown 05/22/2025 3:52 PM EST 05/22/2025 6:48 PM EST Result Claudia Medina MD LAB BLOOD ORDERABLES Final Resu lt Performing Organization Address [facility]/ZIP Co de Phone Number [facility] [address] [place] [address] * Hepatitis C Antibody w/Reflex to HCV Quant PCR (05/22/2025 3:52 PM EST) Pathologist [facility] Hepatitis C Antibody Negative Negative 05/22/2025 7:29 PM EST [facility] Blood Venous blood specimen / Unknown Venipuncture / Unknown 05/22/2025 3:52 PM EST 05/22/2025 6:48 PM EST Result Claudia Medina MD LAB BLOOD ORDERABLES Final Resu lt Performing Organization Address City/[facility]/ZIP Co de Phone Number [facility] [address] [place] [address] * Neisseria gonorrhea DNA by PCR (05/22/2025 3:52 PM EST) Pathologist [facility] Neisseria gonorrhea DNA PCR Result Not Detected Not Detected. 05/23/2025 2:[address] [facility] Urine Urine specimen obtained by clean catch procedure / Unknown Non-blood Collection / Unknown 05/22/2025 3:52 PM EST 05/22/2025 6:[address] [facility] - 05/23/2025 2:37 PM EST This test is performed by the [employer] m2000 instrument for Real Time PCR C. trachomatis and N. gonorrhea. This test is FDA approved for use with endocervical, vaginal, and urine specimens. This test is used for clinical purposes. It should not be regarded as invesigational or for research. The [facility] is certified under the Clinical Laboratory Improvement Amendments of 1988 (CLIA-88) as qualified to perform high complexity clinical laboratory testing. us Nicolas Medina MD LAB MICROBIOLOGY - GENERAL [facility]DE [facility] Final Result Performing Organization Address [facility] Co de Phone Number [facility] [address] [place] [address] * Rubella Antibody IgG (05/22/2025 3:52 PM EST) Rubella Antibody IgG Negative Negative 05/22/2025 9:27 PM EST [facility] Comment: Rubella IgG Result Interpretation: Negative: No [...] ORDERABLES Final Resu lt Performing Organization Address [facility]/ZIP Co de Phone Number [facility] [address] [place] [address] * Hepatitis B Surface Antigen (05/22/2025 3:52 PM EST) Hepatitis B Surf Antigen Negative Negative 05/22/2025 8:35 PM EST [facility] Blood Venous blood specimen / Unknown Venipuncture / Unknown 05/22/2025 3:52 PM EST 05/22/2025 6:48 PM EST us Nicolas Medina MD LAB BLOOD ORDERABLES Final Resu lt [facility] [address] [place] [address] * CBC W/O Differential (05/22/2025 3:52 PM EST) WBC Count 8.24 3.70 - 10.30 10*3/uL LAB HEMATOLOGY METHOD 05/22/2025 7:[address] [facility] RBC Count 4.96 3.90 - 5.20 10*6/uL LAB HEMATOLOGY METHOD 05/22/2025 7:[address] [facility] HGB 14.0 11.2 - 15.7 g/dL LAB HEMATOLOGY METHOD 05/22/2025 7:[address] [facility] HCT 41.6 34.0 - 45.0 % LAB HEMATOLOGY METHOD 05/22/2025 7:[address] [facility] Platelet Count 318 155 - 369 10*3/uL LAB HEMATOLOGY METHOD 05/22/2025 7:[address] [facility] MCV 84 79 - 98 fL LAB HEMATOLOGY METHOD 05/22/2025 7:[address] [facility] MCH 28.2 26.0 - 32.0 pg LAB HEMATOLOGY METHOD 05/22/2025 7:[address] [facility] MCHC 33.7 30.7 - 35.5 g/dL LAB HEMATOLOGY METHOD 05/22/2025 7:[address] [facility] RDW 12.9 11.5 - 14.5 % LAB HEMATOLOGY METHOD 05/22/2025 7:[address] [facility] MPV 11.0 8.8 - 12.5 fL LAB HEMATOLOGY METHOD 05/22/2025 7:[address] [facility] nRBC 0.0 <=0.0 per 100 WBCs LAB HEMATOLOGY METHOD 05/22/2025 7:[address] [facility] Blood Venous blood specimen / Unknown Venipuncture / Unknown 05/22/2025 3:52 PM EST 05/22/2025 6:48 PM EST us Nicolas Medina MD LAB BLOOD ORDERABLES Final Resu lt Performing Organization Address [facility] Co de Phone Number [facility] [address] [place] [address] * Type and Screen (05/22/2025 3:52 PM [...] TEST ORDERABLES Final Result Performing Organization Address [facility] Phone Number BLOOD BANK [address] [place] [address] * Urine Culture (05/22/2025 3:52 PM EST) Culture <10,000 CFU/mL Mixed urogenital, fecal, or skin sophia present. 05/24/2025 9:27 AM EST [facility] Urine Urine specimen obtained by clean catch procedure / Unknown Non-blood Collection / Unknown 05/22/2025 3:52 PM EST 05/22/2025 6:47 PM EST Result Claudia Medina MD LAB MICROBIOLOGY - GENERAL [facility] Final Result Performing Organization Address City/[facility]/ZIP Co de Phone Number [facility] [address] [place] [address] * OB US Transvaginal (05/22/2025 3:29 PM EST) Anatomical Region Laterality Modality Pelvis Ultrasound 05/22/2025 3:32 PM EST Impressions 05/22/2025 3:41 PM EST The OB Ultrasound you requested has been resulted. Please navigate to the Imaging tab in [employer] for review. This message has been generated by the interface. Narrative Procedure Note Nicolas Medina MD - 05/22/2025 IMPRESSION: The OB Ultrasound you requested has been resulted. Please navigate to theImaging tab in [employer] for review. This message has been generated by theinterface. us Nicolas Medina MD IMG OB US PROCEDURES Final Resu lt * (ABNORMAL) Test Qualitative Plasma (05/17/2025 3:43 PM EDT) Test Positive(A ) Negative 05/17/2025 7:[address] [facility] Blood Venous blood specimen / Unknown Venipuncture / Unknown 05/17/2025 3:43 PM EDT 05/17/2025 3:[address] [facility] - 05/17/2025 7:18 PM EDT Positive, greater than 6 mIU/hCG mL. Halle Waldrop MD LAB BLOOD ORDERABLES Final Result [facility] [address] [place] [address] * POCT Urine (05/17/2025 3:27 PM EDT) [...] procedure / Unknown 05/17/2025 3:27 PM EDT us Halle Waldrop MD POINT OF CARE TEST ENTER/E DIT ORDERABLES Final Result from Last 3 Months Insurance [employer] MEDICAID [facility] WC TRAVELERS [place] 068 Advance Directives * Full Code (Latest Code Status on File) Date Activated Date Inactivated Comments 11/24/2024 9:20 PM 11/26/2024 4:06 PM Question Answer Comments I have reviewed the capacity from the link above and, if needed, have updated to appropriate status: Yes Care Teams Parking Patroller Relationship Specialty Start Date End Date Estrellita Dietz MD [address] [place] [address] PCP - General 11/30/20
--- OUTSIDE RECORDS SUMMARY | 2025-06-01 16:39 | XMS_ITS | Encounter Summary ---
Author Organization [facility] Address [address] [place] [address] Care Team Providers Care [employer]eron[employer] Director Name Role Phone Estrellita Dietz MD Primary Care Provider [phone] Encounter Details Date Type Department Care Team (Late st Contact Info) Description 06/01/2025 Results Follow-Up Obstetrics & Gynecology [address] [place] [address] Nicolas Medina MD [address] [place] [address] Social History Tobacco Use Types [...] and Family Not on file 05/17/2025 Attends [employer] Services Not on file 05/17 Active Member [...] time in the past 12 m [facility], were you homeless or living in a senior living (including now)? No 05/17/2025 [facility] Utilities Answer Date Recorded In [...] documented as of this encounter Care Teams Aeron[employer]ics Commission Director Relationship Specialty Start Date End Date Estrellita Dietz MD [address] [place] [address] PCP - General 11/30/20 documented as of this encounter
--- OUTSIDE RECORDS SUMMARY | 2025-06-01 16:39 | XMS_ITS | Encounter Summary ---
Author Organization [facility] Address [address] [place] [address] Care Team Providers Care Teachers Assistant Name Role Phone Estrellita Dietz MD Primary Care Provider [phone] Encounter Details Date Type Department Care Team (Late st Contact Info) Description 11/18/2024 Outside Procedure External Location [address] [place] [address] Provider, Priyank Polebridge Social History Tobacco Use Types Packs/Day Years [...] Date Recorded Patient Health Questionnaire-2 Score 0 10/31/2024 Hunger Vital Sign Answer Date Recorded Within [...] place to sleep or slept in a longterm (including now)? No 04/15/2024 PHQ-9 Answer Date Recorded Patient Health Questionnaire-9 Score 0 10/31/2024 Housing Stability Vital Sign Answer Aj e Recorded In the last 12 months, was t here a time when you were not able to pay the mortgage or rent on time? No 10/31/2024 In the past 12 months, how m any times have you moved where you were living? 2 10/31/2024 At any time in the past 12 m [facility], were you homeless or living in a longterm (including now)? No 10/31/2024 Safety and Environment [...] Patient Health Questionnaire-2 Score 0 05/13/2023 Comments Yes Sex and Gender Information Value Date Recorded Sex Assigned at Female 01/17/2021 9:05 AM EDT Legal Sex Female 7:49 PM EDT Gender Identity Female 01/17/2021 9:05 AM EDT Sexual Orientation Straight 01/17/2021 9: 05 AM EDT documented as of this encounter Plan of Treatment Not on file documented as of this encounter Procedures Procedure Name Priority Date/Time Associated Diagnosis Comments OB US < 14 WEEKS EARLY 11/18/2024 8:53 AM EDT documented in this encounter Results * OB US < 14 Weeks Early (11/18/2024 8:53 AM EDT) Anatomical Region Laterality Modality Body Ultrasound 11/18/2024 8:53 AM EDT Narrative 11/18/2024 9:35 [place] [address] Name: WILDER MOJICA Exam Date: 11/18/2024 : 2000 Age 23 years Gender: F Physician: [place] Facility: [facility] Facility HSV: Outpatient Exam: OB EXAM DESCRIPTION: OB < 14 WEEKS US CLINICAL HISTORY: 23 years Female, vaginal bleeding COMPARISON: None. FINDINGS: The uterus is normal in size and echotexture measuring 7.6 x 4.9 x 6.3 cm. The right ovary is normal. The left ovary is not visualized secondary to overlying bowel gas. A single gestational sac identified within the uterus measuring 3.05 cm consistent with 8 weeks 3 days. No pole identified. No heart rate detected. IMPRESSION: Single gestational sac without pole or heart rate detected. Electronically signed by: Babak Hewitt MD 11/18/2024 09:31 AM EDT Dictated By: Babak Hewitt Transcribed By: Transcribed On: 11/18/2024 9:27 AM Electronically signed by: Babak Hewitt 11/18/2024 Thank you for referring WILDER MOJICA to [facility]. Legally authenticated by MAIK CORMIER 2024-11-18 09:27:47 Procedure Note Provider, Priyank Polebridge - 11/18/2024 [facility] [address] [place] [address] Name: WILDER MOJICA Exam Date: 11/18/2024 : 2000 Age 23 years Gender: F Physician: SANTA NEGRETE Facility: [facility] Facility HSV: Outpatient Exam: OB EXAM DESCRIPTION: OB < 14 WEEKS US CLINICAL HISTORY: 23 years Female, vaginal bleeding COMPARISON: None. FINDINGS: The uterus is normal in size and echotexture measuring 7.6 x 4.9x 6.3 cm. The right ovary is normal. The left ovary is not visualizedsecondary to overlying bowel gas. A single gestational sac identified within theuterus measuring 3.05 cm consistent with 8 weeks 3 days. No poleidentified. No heart rate detected. IMPRESSION: Single gestational sac without pole or heart rate detected. Electronically signed by: Babak Hewitt MD 11/18/2024 09:31 AM EDT RP Dictated By: Babak Hewitt Transcribed By: Transcribed On: 11/18/2024 9:27 AM Electronically signed by: Babak Hewitt 11/18/2024 Thank you for referring WILDER MOJICA to [facility]. Legally authenticated by MAIK CORMIER 2024-11-18 09:27:47 us Generic Polebridge Provider IMG OB US PROCEDURES Final Result documented in this encounter Visit Diagnoses Not on filedocumented in this encounter Additional Health Concerns Assessment Noted Time PHQ-9 Depression Total Score: 0 11/01/19 25 3:01 PM EDT A fall risk assessment has been complete d for the patient 10/28/2024 8:26 AM EDT A Body Mass Index follow-up plan has been documented for the patient 11/18/2024 2:12 PM EDT documented as of this encounter Care Teams Teachers Assistant Relationship Specialty Start Date End Date Estrellita Dietz MD [address] [place] [address] PCP - General 11/30/20 documented as of this encounter
--- OUTSIDE RECORDS SUMMARY | 2025-06-01 16:39 | XMS_ITS | Encounter Summary ---
Author Organization [facility] Address [address] [place] [address] Care Team Providers Care Eyeglass Frames Inspector Name Role Phone Estrellita Dietz MD Primary Care Provider [phone] Reason for Visit * Reason Comments Med Change Request Encounter Details Date Type Department Care Team (Late st Contact Info) Description 07/19/2024 Refill [facility] [address] [place] [address] Estrellita Dietz MD [address] [place] [address] Anxiety Social History Tobacco Use Types Packs/Day Years [...] Answer Date Recorded Patient Health Questionnaire-2 Score 1 07/05/2024 Hunger Vital Sign Answer Date Recorded Within [...] Recorded Patient Health Questionnaire-9 Score 11 07/05/2024 Safety and Environment Answer Date Emiliano rded [...] encounter Miscellaneous Notes * Telephone Encounter - Nina Worley - 07/21/2024 11:34 AM EST Pt not taking Celexa anymore. * Telephone Encounter - Nina Worley - 07/21/2024 11:32 AM EST Called pt and informed that Buspar was refilled yesterday but question about Celexa needing refilled or not. Pt stated she didn't remember requesting the refills on either but only needing Buspar. * Telephone Encounter - Cecy Galeana PharmD - 07/20/2024 4:39 PM EST 1 medication(s) has been approved per protocol. documented in this encounter Plan of Treatment Not on file documented as of this encounter Visit Diagnoses Diagnosis Anxiety Anxiety state, unspecified documented in this encounter Additional Health Concerns Assessment Noted Time PHQ-9 Depression Total Score: 11 024 2:45 PM EST A fall risk assessment has been complete d for the patient 03/30/2024 3:05 PM EDT A Body Mass Index follow-up plan has been documented for the patient 07/05/2024 3:26 PM EST documented as of this encounter Care Teams Eyeglass Frames Inspector Relationship Specialty Start Date End Date Estrellita Dietz MD [address] [place] [address] PCP - General 11/30/20 documented as of this encounter
--- OUTSIDE RECORDS SUMMARY | 2025-06-01 16:40 | XMS_ITS | Encounter Summary ---
Author Organization [facility] Address [address] [place] [address] Care Team Providers Care Quiller Runner Name Role Phone Estrellita Dietz MD Primary Care Provider [phone] Encounter Details Date Type Department Care Team (Late st Contact Info) Description 05/23/2025 Results Follow-Up Obstetrics & Gynecology [address] [place] [address] Nicolas Medina MD [address] [place] [address] Social History Tobacco Use Types [...] and Family Not on file 05/17/2025 Attends Scientologist Services Not on file 05/17 Active Member [...] any time in the past 12 m [facility], were you homeless or living in a [facility] (including now)? No 05/17/2025 [facility] Utilities Answer Date Recorded In the past [...] documented as of this encounter Care Teams Quiller Runner Relationship Specialty Start Date End Date Estrellita Dietz MD [address] [place] [address] PCP - General 11/30/20 documented as of this encounter
--- OUTSIDE RECORDS SUMMARY | 2025-06-01 16:40 | XMS_ITS | Encounter Summary ---
Author Organization [facility] Address [address] [place] [address] Care Team Providers Care Slitter Helper Name Role Phone Estrellita Dietz MD Primary Care Provider [phone] Encounter Details Date Type Department Care Team (Latest Contact Info) Description 05/18/2025 Travel Social History Tobacco Use Types Packs/Day [...] and Family Not on file 05/17/2025 Attends Judaism Services Not on file 05/17 Active Member [...] any time in the past 12 m [facility], were you homeless or living in a custodial (including now)? No 05/17/2025 [facility] Utilities Answer Date Recorded In [...] documented as of this encounter Care Teams Slitter Helper Relationship Specialty Start Date End Date Estrellita Dietz MD [address] [place] [phone] PCP - General 11/30/20 documented as of this encounter
--- OUTSIDE RECORDS SUMMARY | 2025-06-01 16:40 | XMS_ITS | Encounter Summary ---
Author Organization [facility] Address [address] [place] [address] Care Team Providers Care Chute Tender Name Role Phone Estrellita Dietz MD Primary Care Provider [phone] Encounter Details Date Type Department Care Team (Late st Contact Info) Description 05/24/2025 Telephone Obstetrics & Gynecology [address] [place] [address] Nicolas Medina MD [address] [place] [address] Social History Tobacco Use Types [...] and Family Not on file 05/17/2025 Attends Baptism Services Not on file 05/17 Active Member [...] any time in the past 12 m [facility], were you homeless or living in a [place] [facility] [place] (including now)? No 05/17/2025 [facility] [...] * Telephone Encounter - Aylin Gardner - 05/24/2025 10:31 AM EST Called pt and made apt. Pt voiced understanding. * Telephone Encounter - Doris Naranjo - 05/24/2025 10:24 AM EST Clinical Concern/Question Reason for Call: Pt is calling to schedule an apt to test her HCG levels. Please call. Best contact number: [phone] (mobile) Optimal time of day to reach caller: ANYTIME Additional comments/information from caller: None Note: Please do not reply to this message. Follow-up communication and further actions as a result of this message need to be communicated with the patient directly, if the patient is not active onMyChart. If the patient is active on MyChart, they will receive notification of the communication/outcome via [employer]. documented in this encounter Plan of Treatment [...] documented as of this encounter Care Teams Chute Tender Relationship Specialty Start Date End Date Estrellita Dietz MD [address] [place] [address] PCP - General 11/30/20 documented as of this encounter
--- OUTSIDE RECORDS SUMMARY | 2025-06-01 16:40 | XMS_ITS | Encounter Summary ---
Author Organization Address [address] [place] [address] Care Team Providers Care Veterans' Coordinator Name Role Phone Estrellita Dietz MD Primary Care Provider [phone] Encounter Details Date Type Department Care Team (Latest Contact Info) Description 04/06/2025 Travel Social History Tobacco Use Types Packs/Day [...] place to sleep or slept in a residential (including now)? No 04/15/2024 PHQ-9 Answer Date [...] any time in the past 12 m [facility], were you homeless or living in a residential (including now)? No 10/31/2024 Safety and Environment [...] as of this encounter Functional Status * Calculated C-SSRS [...] Helen Moore 6. Suicidal Behavior (Lifetime) No 5 3:16 PM EDT Roxie Moore documented as of this encounter Plan of [...] documented as of this encounter Care Teams Veterans' Coordinator Relationship Specialty Start Date End Date Estrellita Dietz MD [address] [place] [address] PCP - General 11/30/20 documented as of this encounter
--- OUTSIDE RECORDS SUMMARY | 2025-06-01 16:40 | XMS_ITS | Encounter Summary ---
Author Organization [facility] Address [address] [place] [address] Care Team Providers Care Bell Attendant Name Role Phone Estrellita Dietz MD Primary Care Provider Reason for Visit * Reason Onset Date Comments Appointment 05/18/2025 05/18/25 [facility] ed appt per WorkQ- pt requested an appt to confirm and address concerns- pt does NOT want to see Dr Lopez or the clinic staff who assisted Dr Lopez when pt was at her last appt w/ Dr John PÑEA Encounter Details Date Type Department Care Team (Late st Contact Info) Description 05/18/2025 Telephone Obstetrics & Gynecology [address] [place] [address] Nicolas Medina MD [address] [place] [address] Appointment (05/18/25 scheduled appt per WorkQ- pt requested an appt to confirm and address concerns- pt does NOT want to see Dr Lopez or the clinic staff who assisted Dr Lopez when pt was at her last appt w/ Dr John CHRISTENSENT/) Social History Tobacco Use Types Packs/Day Years [...] and Family Not on file 05/17/2025 Attends Moravian Services Not on file 05/17 Active Member [...] any time in the past 12 m [facility], were you homeless or living in a intermediate (including now)? No 05/17/2025 [facility] Utilities Answer Date Recorded In the past [...] documented as of this encounter Care Teams Bell Attendant Relationship Specialty Start Date End Date Estrellita Dietz MD [address] [place] [phone] PCP - General 11/30/20 documented as of this encounter
--- OUTSIDE RECORDS SUMMARY | 2025-06-01 16:40 | XMS_ITS | Encounter Summary ---
Author Organization [facility] Address [address] [place] [address] Care Team Providers Care Orthophoto Tech/Draftsman Name Role Phone Estrellita Dietz MD Primary Care Provider [phone] Encounter Details Date Type Department Care Team (Latest Contact Info) Description 05/22/2025 Travel Social History Tobacco Use Types Packs/Day [...] and Family Not on file 05/17/2025 Attends Sikhism Services Not on file 05/17 Active Member [...] in a assisted (including now)? No 05/17/2025 [facility] Utilities Answer Date Recorded In the [...] Mayo Thoughts that you would be b ocry off or hurting yourself in some way Not at all 05/22/2025 3:13 PM Maryanne Mayo Patient Health Questionnaire -9 Score 0 05/22/2025 3:13 PM EST Maryanne Schmidt * How difficult have these problems made it for you to do your work, take care of things at home, or get along with other people? Answer Date of Assessment Author Not difficult at all 05/22/2025 3:13 PM EST Maryanne Villanueva documented as of this encounter Plan of [...] documented as of this encounter Care Teams Orthophoto Tech/Draftsman Relationship Specialty Start Date End Date Estrellita Dietz MD [address] [place] [address] PCP - General 11/30/20 documented as of this encounter
--- OUTSIDE RECORDS SUMMARY | 2025-06-01 16:40 | XMS_ITS | Encounter Summary ---
Author Organization [facility] Address [address] [place] [address] Care Team Providers Care Digital Media Director Name Role Phone Estrellita Dietz MD Primary Care Provider [phone] Encounter Details Date Type Department Care Team (Latest Contact Info) Description 05/19/2025 Travel Social History Tobacco Use Types Packs/Day [...] and Family Not on file 05/17/2025 Attends Gnosticist Services Not on file 05/17 Active Member [...] time in the past 12 m [facility], were you homeless or living in a usp (including now)? No 05/17/2025 [facility] Utilities Answer Date Recorded In the [...] documented as of this encounter Care Teams Digital Media Director Relationship Specialty Start Date End Date Estrellita Dietz MD [address] [place] [address] PCP - General 11/30/20 documented as of this encounter
--- OUTSIDE RECORDS SUMMARY | 2025-06-01 16:40 | XMS_ITS | Encounter Summary ---
Author Organization [facility] Address [address] [place] [address] Care Team Providers Care Manufacturing Coordinator Name Role Phone Estrellita Dietz MD Primary Care Provider [phone] Encounter Details Date Type Department Care Team (Late st Contact Info) Description 05/23/2025 Telephone Obstetrics & Gynecology [address] [place] [address] Nicolas Medina MD [address] [place] [address] Social History Tobacco Use Types [...] and Family Not on file 05/17/2025 Attends Taoism Services Not on file 05/17 Active Member [...] any time in the past 12 m [facility], were you homeless or living in a detention (including now)? No 05/17/2025 [facility] Utilities Answer Date Recorded In the [...] encounter Miscellaneous Notes * Telephone Encounter - Doris Naranjo - 05/23/2025 2:32 PM EST Status Update Call #1 1st call regarding the status of the initial request. Best contact number: [phone] (mobile) Optimal time of day to reach caller: ANYTIME Additional comments/information from caller: Pt is calling to follow up on this. Please call. Note: Please do not reply to this message. Follow-up communication and further actions as a result of this message need to be communicated with the patient directly, if the patient is not active onMyChart. If the patient is active on MyChart, they will receive notification of the communication/outcome via [email or web address]. * Telephone Encounter - Dulce Syed Meaghan - 05/23/2025 9:55 AM EST Clinical Concern/Question Reason for Call: Pt calling for results from yesterday apt. Best contact number: [phone] (mobile) Optimal time of day to reach caller: ANYTIME Additional comments/information from caller: None Note: Please do not reply to this message. Follow-up communication and further actions as a result of this message need to be communicated with the patient directly, if the patient is not active onMyChart. If the patient is active on MyChart, they will receive notification of the communication/outcome via MyChart. documented in this encounter Plan of Treatment [...] documented as of this encounter Care Teams Manufacturing Coordinator Relationship Specialty Start Date End Date Estrellita Dietz MD [address] [place] [address] PCP - General 11/30/20 documented as of this encounter
--- OUTSIDE RECORDS SUMMARY | 2025-06-01 16:40 | XMS_ITS | Encounter Summary ---
Author Organization [facility] Address [address] [place] [address] Care Team Providers Care Statistics Intern Name Role Phone Estrellita Dietz MD Primary Care Provider [phone] Encounter Details Date Type Department Care Team (Late st Contact Info) Description 05/18/2025 Orders Only [facility] [address] [place] [address] Halle Waldrop MD [address] [place] [address] Positive test (Primary Dx) Social History [...] and Family Not on file 05/17/2025 Attends Cheondoism Services Not on file 05/17 Active Member [...] any time in the past 12 m [facility], were you homeless or living in a nursing home (including now)? No 05/17/2025 [facility] Utilities Answer Date Recorded In [...] Progress Notes - Halle Waldrop MD - 05/18/2025 12:24 PM EDT PT with neg upt in office but +hcg. Will add quantitative and have her recheck in 48 hours. documented in this encounter Plan of Treatment Not on file documented as of this encounter Results * (ABNORMAL) hCG, Total Beta, Quantitative, Plasma (05/17/2025 3:43 PM EDT) hCG, Total Beta 44.4(H) <5 mIU/mL 05/18/2025 1:[address] [facility] Blood Venous blood specimen / Unknown Venipuncture / Unknown 05/17/2025 3:43 PM EDT 05/17/2025 3:[address] [facility] - 05/18/2025 1:07 PM EDT [...] BLOOD ORDERABLES Final Result Performing Organization Address City/State/[facility] Co de Phone Number [facility] [address] [place] [address] documented in this encounter Visit Diagnoses Diagnosis [...] documented as of this encounter Care Teams Statistics Intern Relationship Specialty Start Date End Date Estrellita Dietz MD [address] [place] [address] PCP - General 11/30/20 documented as of this encounter
--- OUTSIDE RECORDS SUMMARY | 2025-06-01 16:40 | XMS_ITS | Encounter Summary ---
Author Organization [facility] Address [address] [place] [address] Care Team Providers Care Clutch Specialist Name Role Phone Estrellita Dietz MD Primary Care Provider Reason for Visit * Reason Onset Date Comments HCN Clinical Concern/Question 05/17/2025 Encounter Details Date Type Department Care Team (Late st Contact Info) Description 05/17/2025 Telephone [facility] [address] [address] Estrellita Dietz MD [address] [place] [address] HCN Clinical Concern/Question Social History Tobacco Use Types Packs/Day Years [...] any time in the past 12 m [facility], were you homeless or living in a skilled nursing (including now)? No 05/17/2025 [facility] Utilities Answer Date Recorded In [...] encounter Miscellaneous Notes * Telephone Encounter - Huma Smith - 05/17/2025 3:05 PM EDT Pt has appt today with Dr. Waldrop * Telephone Encounter - Michael Miller - 05/17/2025 2:24 PM EDT Clinical Concern/Question Reason for Call: Pt recently found out they are and requesting labs to check HCG level andalso has request for medication, and possible as soon as possible appointment with provider, pleasecontact pt for more information. Best contact number: [phone] (mobile) Optimal time of day to reach [...] documented as of this encounter Care Teams Clutch Specialist Relationship Specialty Start Date End Date Estrellita Dietz MD [address] [place] [address] PCP - General 11/30/20 documented as of this encounter
--- OUTSIDE RECORDS SUMMARY | 2025-06-01 16:40 | XMS_ITS | Encounter Summary ---
Author Organization [facility] Address [address] [place] [address] Care Team Providers Care Belt Splicer Name Role Phone Estrellita Dietz MD Primary Care Provider [phone] Encounter Details Date Type Department Care Team (Late st Contact Info) Description 05/18/2025 Results Follow-Up [facility] Medicine [address] [place] [address] [address] Social History Tobacco Use Types Packs/Day Years [...] and Family Not on file 05/17/2025 Attends Jewish Services Not on file 05/17 Active Member [...] in a usp (including now)? No 05/17/2025 [facility] Utilities Answer Date Recorded In the [...] documented as of this encounter Care Teams Belt Splicer Relationship Specialty Start Date End Date Estrellita Dietz MD [address] [place] [address] PCP - General 11/30/20 documented as of this encounter
--- OUTSIDE RECORDS SUMMARY | 2025-06-01 16:40 | XMS_ITS | Encounter Summary ---
Author Organization [facility] Address [address] [place] [address] Care Team Providers Care Cell Technician Name Role Phone Estrellita Dietz MD Primary Care Provider [phone] Reason for Visit * Reason Onset Date Comments Results 05/18/2025 Encounter Details Date Type Department Care Team (Late st Contact Info) Description 05/18/2025 Telephone [facility] [address] [place] [address] Estrellita Dietz MD [address] [place] [phone] Results Social History Tobacco Use Types Packs/Day Years [...] any time in the past 12 [facility], were you homeless or living in a [facility] (including now)? No 05/17/2025 [facility] Utilities Answer Date Recorded In the past [...] encounter Miscellaneous Notes * Telephone Encounter - Serenity Lizarraga - 05/19/2025 9:17 AM EDT See result notes * Telephone Encounter - Clif Mendez - 05/18/2025 11:40 AM EDT Patient Phone Message Reason for Call: Pt was in 05/17 and was wanting to know her hcg levels but they aren't on her results that she sees on MyChart. Calling to see if someone could give her her hcg value. Best contact number and optimal time of day to reach caller: [phone] - anytime Note: Please do not reply to this message. Follow-up communication and further actions as a result of this message need to be communicated with the patient directly, if the patient is not active onMyChart. If the patient is active on MyChart, they will receive notification of the communication/outcome via [employer]. documented in this encounter Plan of Treatment [...] documented as of this encounter Care Teams Cell Technician Relationship Specialty Start Date End Date Estrellita Dietz MD [address] [place] [address] PCP - General 11/30/20 documented as of this encounter
--- OUTSIDE RECORDS SUMMARY | 2025-06-01 16:40 | XMS_ITS | Encounter Summary ---
Author Organization [facility] Address [address] [place] [address] Care Team Providers Care Finishing And Shipping Supervisor Name Role Phone Estrellita Dietz MD Primary Care Provider [phone] Encounter Details Date Type Department Care Team (Late st Contact Info) Description 05/22/2025 Results Follow-Up [facility] [address] [place] [address] Halle Waldrop MD [address] [place] [address] Social History Tobacco Use Types Packs/Day Years [...] and Family Not on file 05/17/2025 Attends Muslim Services Not on file 05/17 Active Member [...] a care home (including now)? No 05/17/2025 [facility] Utilities Answer Date Recorded In [...] documented as of this encounter Care Teams Finishing And Shipping Supervisor Relationship Specialty Start Date End Date Estrellita Dietz MD [address] [place] [phone] PCP - General 11/30/20 documented as of this encounter
--- OUTSIDE RECORDS SUMMARY | 2025-06-01 16:40 | XMS_ITS | Encounter Summary ---
Author Organization [facility] Address [address] [place] [address] Care Team Providers Care Framing Machine Tender Name Role Phone Estrellita Dietz MD Primary Care Provider [phone] Encounter Details Date Type Department Care Team (Latest Contact Info) Description 05/17/2025 Travel Social History Tobacco Use Types Packs/Day [...] and Family Not on file 05/17/2025 Attends [employer] Services Not on file 05/17 Active Member [...] time in the past 12 m [facility], were you homeless or living in a senior living (including now)? No 05/17/2025 [facility] Utilities Answer Date Recorded In the [...] Av Petty documented as of this encounter Plan of [...] documented as of this encounter Care Teams Framing Machine Tender Relationship Specialty Start Date End Date Estrellita Dietz MD [address] [place] [address] PCP - General 11/30/20 documented as of this encounter
== END 2025-06-01 23:59 | disposition home or self-care (01) ==
PROVIDERS: PCP Family Medicine; Visit Provider Obstetrics & Gynecology
DX: Z34.90 Encounter for supervision of normal pregnancy, unspecified, unspecified trimester (principal); Z3A.00 Weeks of gestation of pregnancy not specified
CPT/HCPCS: 36415; 84144; 84702

== ENCOUNTER 2025-06-16 19:17 | Emergency (ER) | payer BC, OTHER, SELFPAY ==
--- OUTSIDE RECORDS SUMMARY | 2025-05-17 14:20 | XMS_ITS | Encounter Summary ---
Author Organization [facility] Address [address] [place] [address] Care Team Providers Care Sole Conforming Machine Operator Name Role Phone Estrellita Dietz MD Primary Care Provider [phone] Reason for Visit * Reason Comments Follow-up Pt is here to determ ine if she is Encounter Details Date Type Department Care Team (Late st Contact Info) Description 05/17/2025 3:20 PM EDT Office Visit [facility] [address] [address] Halle Waldrop MD [address] [place] [address] Missed period (Primary Dx); Positive [...] and Family Not on file 05/17/2025 Attends Jain Services Not on file 05/17 Active Member [...] any time in the past 12 m [facility], were you homeless or living in a correction (including now)? No 05/17/2025 [facility] Utilities Answer Date Recorded In the [...] 44.4(H) <5 mIU/mL 05/18/2025 1:07 PM EDT [facility] Blood Venous blood specimen / Unknown Venipuncture / Unknown 05/17/2025 3:43 PM EDT 05/17/2025 3:43 PM EDT Narrative [facility] - 05/18/2025 1:07 PM [...] Waldrop MD LAB BLOOD ORDERABLES Final Result [facility] [address] [place] [address] * (ABNORMAL) Test Qualitative Plasma (05/17/2025 3:43 PM EDT) Test Positive(A ) Negative 05/17/2025 7:18 PM EDT [facility] Blood Venous blood specimen / Unknown Venipuncture / Unknown 05/17/2025 3:43 PM EDT 05/17/2025 3:43 PM EDT Narrative [facility] - 05/17/2025 7:18 PM EDT Positive, greater than 6 mIU/hCG mL. Halle Wadlrop MD LAB BLOOD ORDERABLES Final Result Performing Organization Address City/[facility] Co de Phone Number [facility] [address] [place] [address] * POCT Urine (05/17/2025 3:27 PM EDT) [facility] Signature Urine - Point of Care [...] documented as of this encounter Care Teams Sole Conforming Machine Operator Relationship Specialty Start Date End Date Estrellita Dietz MD [address] [place] [address] PCP - General 11/30/20 documented as of this encounter
--- OUTSIDE RECORDS SUMMARY | 2025-05-19 12:15 | XMS_ITS | Encounter Summary ---
Author Organization [facility] Address [address] [place] [address] Care Team Providers Care Dross Skimmer Name Role Phone Estrellita Dietz MD Primary Care Provider [phone] Encounter Details Date Type Department Care Team (Latest Contact Info) Description 05/19/2025 1:15 PM EDT Clinical Support [address] [phone] Positive test (Primary Dx) Social [...] and Family Not on file 05/17/2025 Attends Christianity Services Not on file 05/17 Active Member [...] in a half-way (including now)? No 05/17/2025 [facility] Utilities Answer Date Recorded In the [...] 101(H) <5 mIU/mL 05/19/2025 7:06 PM EDT [facility] Blood Venous blood specimen / Unknown Venipuncture / Unknown 05/19/2025 11:21 AM EDT 05/19/2025 11:21 AM EDT Narrative [facility] - 05/19/2025 7:06 PM EDT [...] MD LAB BLOOD ORDERABLES Final Re sult [facility] [address] [place] [address] documented in this encounter Visit Diagnoses Diagnosis [...] documented as of this encounter Care Teams Dross Skimmer Relationship Specialty Start Date End Date Estrellita Dietz MD [address] [place] [address] PCP - General 11/30/20 documented as of this encounter
--- OUTSIDE RECORDS SUMMARY | 2025-05-22 15:00 | XMS_ITS | Encounter Summary ---
Author Organization [facility] Address [address] [place] [address] Care Team Providers Care Seasonal Package Handler Name Role Phone Estrellita Dietz MD Primary Care Provider [phone] Reason for Referral * Imaging (Routine) - Closed Specialty Diagnoses / Procedures Referred By Contac t Referred To Contact Diagnoses Unsure of LMP (last menstrual period) as reason for ultrasound scan Procedures OB US Transvaginal Nicolas Medina MD [address] [place] [address] Phone: tel: fax: EXT External Clinic [address] [place] [phone] Referral ID Status Reason Start Date Expiration Date Visits Re quested Visits Authorized [id number] Closed 05/22/2025 11/21/2026 1 1 Encounter Details Date Type Department Care Team (Late st Contact Info) Description 05/22/2025 3:00 PM EST Initial Obstetrics & Gynecology [address] [place] [address] Nicolas Medina MD [address] [place] [address] [place]: 5w1d Social History Tobacco [...] and Family Not on file 05/17/2025 Attends [employer] Services Not on file 05/17 Active Member [...] were you homeless or living in a long-term (including now)? No 05/17/2025 [facility] Utilities Answer Date Recorded In the past 12 months has [employer], gas, oil, or water company threatened to [...] ORDERABLES Final Resu lt Performing Organization Address City/[facility]/ZIP Co de Phone Number [facility] [address] [place] [address] * Urine Culture (05/22/2025 3:52 PM EST) Pathologist [facility] Culture <10,000 CFU/mL Mixed urogenital, fecal, or skin sophia present. 05/24/2025 9:27 AM EST [facility] Urine Urine specimen obtained by clean catch procedure / Unknown Non-blood Collection / Unknown 05/22/2025 3:52 PM EST 05/22/2025 6:47 PM EST us Nicolas Medina MD LAB MICROBIOLOGY - GENERAL ORDE [facility] Final Result [facility] [address] [place] [address] * Type and Screen (05/22/2025 3:52 PM [...] TEST ORDERABLES Final Result Performing Organization Address [facility] Phone Number BLOOD BANK [address] * Treponema Pallidum (Syphilis) Antibodies with [...] ORDERABLES Final Resu lt Performing Organization Address City/[facility] Co de Phone Number [facility] [address] [place] [address] * Rubella Antibody IgG (05/22/2025 3:52 PM [...] ORDERABLES Final Resu lt Performing Organization Address City/[facility]/ZIP Co de Phone Number [facility] [address] [place] [address] * Neisseria gonorrhea DNA by PCR (05/22/2025 3:52 PM EST) Neisseria gonorrhea DNA PCR Result Not Detected Not Detected. 05/23/2025 2:37 PM EST [facility] Urine Urine specimen obtained by clean catch procedure / Unknown Non-blood Collection / Unknown 05/22/2025 3:52 PM EST 05/22/2025 6:47 PM EST Narrative [facility] - 05/23/2025 2:37 PM EST This test is performed by the [employer] instrument for Real Time PCR C. trachomatis and N. gonorrhea. This test is FDA approved for use with endocervical, vaginal, and urine specimens. This test is used for clinical purposes. It should not be regarded as invesigational or for research. The [facility] Clinical Microbiology Laboratory is certified under the Clinical Laboratory Improvement Amendments of 1988 (CLIA-88) as qualified to perform high complexity clinical laboratory testing. Result Claudia Medina MD LAB MICROBIOLOGY - GENERAL ORDE [facility] Final Result Performing Organization Address [facility] [place] [address] * Hepatitis C Antibody w/Reflex to HCV Quant PCR (05/22/2025 3:52 PM EST) Hepatitis C Antibody Negative Negative 05/22/2025 7:29 PM EST [facility] Blood Venous blood specimen / Unknown Venipuncture / Unknown 05/22/2025 3:52 PM EST 05/22/2025 6:48 PM EST Result Claudia Medina MD LAB BLOOD ORDERABLES Final Resu lt Performing Organization Address City/[facility]/ZIP Co de Phone Number [facility] [address] [place] [address] * Hepatitis B Surface Antigen (05/22/2025 3:52 PM EST) Pathologist [facility] Hepatitis B Surf Antigen Negative Negative 05/22/2025 8:35 PM EST [facility] Blood Venous blood specimen / Unknown Venipuncture / Unknown 05/22/2025 3:52 PM EST 05/22/2025 6:48 PM EST us Nicolas Medina MD LAB BLOOD ORDERABLES Final Resu lt Performing Organization Address [facility]/ZIP Co de Phone Number [facility] [address] [place] [address] * Chlamydia trachomatis DNA by PCR (05/22/2025 3:52 PM EST) Pathologist [facility] Chlamydia trachomatis DNA PCR Result Not Detected Not Detected 05/23/2025 2:37 PM EST [facility] Urine Urine specimen obtained by clean catch procedure / Unknown Non-blood Collection / Unknown 05/22/2025 3:52 PM EST 05/22/2025 6:47 PM EST Narrative [facility] - 05/23/2025 2:37 PM EST This test is performed by the [employer] m2000 instrument for Real Time PCR C. trachomatis and N. gonorrhea. This test is FDA approved for use with endocervical, vaginal, and urine specimens. This test is used for clinical purposes. It should not be regarded as invesigational or for research. The [facility] Clinical Microbiology Laboratory is certified under the Clinical Laboratory Improvement Amendments of 1988 (CLIA-88) as qualified to perform high complexity clinical laboratory testing. us Nicolas Medina MD LAB [facility]BIOLOGY - [facility] Final Result Performing Organization Address City/[facility]/ZIP Co de Phone Number [facility] [address] [place] [address] * CBC W/O Differential (05/22/2025 3:52 PM EST) Pathologist [facility] WBC Count 8.24 3.70 - 10.30 [...] Final Resu lt [facility] [address] [place] [address] * Progesterone (05/22/2025 3:52 PM EST) Progesterone [...] ORDERABLES Final Resu lt Performing Organization Address [facility] de Phone Number [facility] [address] [place] [address] * (ABNORMAL) hCG, Total Beta, Quantitative, Plasma (05/22/2025 3:52 PM EST) hCG, Total Beta 412(H) <5 mIU/mL 05/22/2025 7:29 PM EST [facility] Blood Venous blood specimen / Unknown Venipuncture [...] kits cannot be used interchangeably. us Nicolas Mednia MD LAB BLOOD ORDERABLES Final Resu lt Performing Organization Address [facility] Co de Phone Number [facility] [address] [place] [address] * OB US Transvaginal (05/22/2025 3:29 PM EST) Anatomical Region Laterality Modality Pelvis Ultrasound 05/22/2025 3:32 PM EST Impressions 05/22/2025 3:41 PM EST The OB Ultrasound you requested has been resulted. Please navigate to the Imaging tab in [employer] for review. This message has been generated by the interface. Narrative Procedure Note Nicolas Medina MD - 05/22/2025 IMPRESSION: The OB Ultrasound you requested has been resulted. Please navigate to theImaging tab in StudyRoom for review. This message has been generated by [employer]. us Nicolas Medina MD IMG OB US [...] documented as of this encounter Care Teams Seasonal Package Handler Relationship Specialty Start Date End Date Estrellita Dietz MD [address] [place] [address] PCP - General 11/30/20 documented as of this encounter
--- OUTSIDE RECORDS SUMMARY | 2025-05-22 15:30 | XMS_ITS | Encounter Summary ---
Author Organization [facility] Address [address] [place] [address] Care Team Providers Care Cashier Gambling Name Role Phone Estrellita Dietz MD Primary Care Provider [phone] Reason for Visit * Imaging (Routine) - Closed Specialty Diagnoses / Procedures Referred By Lara rogers Referred To Contact Diagnoses Unsure of LMP (last menstrual period) as reason for ultrasound scan Procedures OB US Transvaginal Nicolas Medina MD [address] [place] [address] Phone: tel: fax: EXT External Clinic [address] [place] [phone] Referral ID Status Reason Start Date Expiration Date Visits Re quested Visits Authorized [id number] Closed 05/22/2025 11/21/2026 1 1 Encounter Details Date Type Department Care Team (Latest Contact Info) Description 05/22/2025 3:30 PM EST Ancillary Procedure Obstetrics & Gynecology [address] [place] [address] Unsure of LMP (last menstrual period) as reason for ultrasound scan Social History Tobacco Use Types Packs/Day Years [...] and Family Not on file 05/17/2025 Attends [employer] Not on file 05/17 Active Member [...] any time in the past 12 m [facility], were you homeless or living in a long-term (including now)? No 05/17/2025 [facility] Utilities Answer Date Recorded In the past [...] AM EDT documented as of this encounter Functional Status * Over the [...] Maryanne Wan documented as of this encounter Plan of Treatment Not on file documented as of this encounter Procedures Procedure Name Priority Date/Time Associated Diagnosis Comments OB US TRANSVAGINAL Routine 05/22/2025 3: 29 PM EST Unsure of LMP (last menstrual period) as reason for ultrasound scan documented in this encounter Results * OB US Transvaginal (05/22/2025 3:29 PM EST) Anatomical Region Laterality Modality Pelvis Ultrasound 05/22/2025 3:32 PM EST Impressions 05/22/2025 3:41 PM EST The OB Ultrasound you requested has been resulted. Please navigate to the Imaging tab in [employer] for review. This message has been generated by the interface. Narrative Procedure Note Nicolas Medina MD - 05/22/2025 IMPRESSION: The OB Ultrasound you requested has been resulted. Please navigate to theImaging tab in [employer] for review. This message has been generated by [email or web address] us Nicolas Medina MD IMG OB US PROCEDURES Final Resu lt documented in this encounter Visit Diagnoses Diagnosis Unsure of LMP (last menstrual period) as [...] documented as of this encounter Care Teams Cashier Gambling Relationship Specialty Start Date End Date Estrellita Dietz MD [address] [place] [phone] PCP - General 11/30/20 documented as of this encounter
--- OUTSIDE RECORDS SUMMARY | 2025-05-24 11:00 | XMS_ITS | Encounter Summary ---
Author Organization Healthcare Address [address] [place] [address] Care Team Providers Care Security Services Manager Name Role Phone Estrellita Dietz MD Primary Care Provider [phone] Reason for Visit * Reason Comments Labs Here for labs. Encounter Details Date Type Department Care Team (Latest Contact Info) Description 05/24/2025 11:00 AM EST Clinical Support Obstetrics & Gynecology [address] [place] [address] test positive (Primary Dx) Social [...] and Family Not on file 05/17/2025 Attends Spiritism Services Not on file 05/17 Active Member [...] any time in the past 12 m [facility], were you homeless or living in a chcf (including now)? No 05/17/2025 [facility] Utilities Answer Date Recorded In [...] 842(H) <5 mIU/mL 05/24/2025 2:[address] [facility] Blood Venous blood specimen / Unknown Venipuncture / Unknown 05/24/2025 10:42 AM EST 05/24/2025 2:[address] [facility] - 05/24/2025 2:35 PM EST Patients: [...] MD LAB BLOOD ORDERABLES Final Resu lt [facility] [address] [place] [address] documented in this encounter Visit Diagnoses Diagnosis [...] documented as of this encounter Care Teams Security Services Manager Relationship Specialty Start Date End Date Estrellita Dietz MD [address] [place] [id number] PCP - General 11/30/20 documented as of this encounter
--- OUTSIDE RECORDS SUMMARY | 2025-05-31 15:15 | XMS_ITS | Encounter Summary ---
Author Organization Healthcare Address [address] [place] [address] Care Team Providers Care Smoked Meat Preparer Name Role Phone Estrellita Dietz MD Primary Care Provider [phone] Reason for Visit * Reason Comments Labs Here for labs. Encounter Details Date Type Department Care Team (Latest Contact Info) Description 05/31/2025 3:15 PM EST Clinical Support Obstetrics & Gynecology [address] [place] [address] , unspecified gestational age (Primary [...] and Family Not on file 05/17/2025 Attends Shinto Services Not on file 05/17 Active Member [...] any time in the past 12 m [facility], were you homeless or living in a retirement (including now)? No 05/17/2025 [facility] Utilities Answer Date Recorded In the [...] 7,199(H) <5 mIU/mL 05/31/2025 7:26 PM EST [facility] Blood Venous blood specimen / Unknown Venipuncture / Unknown 05/31/2025 2:51 PM EST 05/31/2025 6:43 PM EST Narrative [facility] - 05/31/2025 7:26 PM EST [...] ORDERABLES Final Resu lt Performing Organization Address [facility] de Phone Number [facility] [address] [place] [address] * Progesterone (05/31/2025 2:39 PM EST) Progesterone III 15.4 Reference Range not established ng/mL 05/31/2025 7:24 PM EST [facility] Blood Venous blood specimen / Unknown Venipuncture / Unknown 05/31/2025 2:39 PM EST 05/31/2025 6:44 PM EST Narrative [facility] - 05/31/2025 7:24 PM EST Menstrual Cycle Phase Reference Intervals: Females, 18 Y and up (ng/mL) Follicular <= 0.33 Ovulation <= 2.35 Luteal 0.5-21 Post-Menopausal <0.2 reference Intervals (ng/mL): 1st Trimester 11 - 45 2nd Trimester 25 - 84 3rd Trimester 58 - 214 us Nicolas Medina MD LAB BLOOD ORDERABLES Final Resu lt Performing Organization Address [facility] Co de Phone Number [facility] [address] [place] [address] documented in this encounter Visit Diagnoses Diagnosis [...] documented as of this encounter Care Teams Smoked Meat Preparer Relationship Specialty Start Date End Date Estrellita Dietz MD [address] [place] [address] PCP - General 11/30/20 documented as of this encounter
[2025-06-16 19:19] VITALS: BP 117/62; PULSE 97; RESP 17; TEMP 36.6; O2SAT 100; BMI 24.7
--- NOTE | 2025-06-16 20:01 | ED_ITS ---
<Statement entered by Marry Dow DO - 06/17/25 00:46> I was consulted by the DAVIDA, and we discussed the complexity of problems being addressed. I approve the treatment and management plan for this patient's care in the emergency department, thus performing a substantial portion of the medical decision making. Marry Dow DO Discharge Plan Disposition Patient Disposition: Home, Self-Care Condition: Good Prescriptions Prescriptions: New hydrocortisone 1 % cream 1 applic topical BID PRN (Reason: rash) Qty: 28.35 0RF No Action progesterone micronized 200 mg capsule 200 mg PO HS Classic 28 mg iron- 800 mcg tablet PO DAILY Referrals Follow up/Referrals: Estrellita Dietz [Primary Care Provider, Medical] - See instructions Activity Restrictions/Add. Instructions Additional Instructions/Restrictions: You were evaluated on an emergency basis. It is very important that you follow- up with your primary care provider and any specialist who we discussed within the next 2 days in order to better assess your health more comprehensively. For example, incidental findings on imaging or laboratory results that were performed today may be discovered, which do not require immediate medical care, but may impact your health in the future. If your symptoms worsen or persist, please return to the emergency department immediately for reassessment. Take all medications as prescribed. In queue for allowing me to participate in your health care, and I hope you feel better soon. Clinical Impressions Clinical Impression: Rash and nonspecific skin eruption Instructions Patient Instructions: DI for Rash, DI for Skin Abscess Print Language Print Language: Afghan Discharge ED Provider: Marry Dow General Adult HPI General Chief complaint: Skin/Abscess/Foreign Body Stated complaint: Rash Under Left Breast and 7 weeks AP Time Seen by Provider: 06/16/25 19:37 History of Present Illness HPI narrative: 24-year-old female presents to the emergency department with complaints of a weepy rash under her left breast that she noticed a couple of hours ago. She states she has a history of eczema. Patient reports she is approximately 7 weeks . Patient has not taken any medication for symptom relief prior to arrival. Related Data Home Medications ?Medication ?Instructions ?Recorded ?Confirmed vits no.126-ferrous fum tab PO DAILY 06/09/25 06/09/25 28 mg iron-folic acid 800 mcg tablet (Classic ) progesterone micronized 200 mg 200 mg PO HS 06/09/25 1 1/21/25 capsule Previous Rx's ?Medication ?Instructions ?Recorded hydrocortisone 1 % topical cream 1 applic topical BID PRN rash 06/16/25 #28.35 grams Allergies Allergy/AdvReac Type Severity Reaction Status Date / Time azithromycin (From Zithromax) Allergy Severe Hives Verified 06/09/25 15:35 [facility] Disclaimer: The information contained in this section may have been updated after the patient was seen, as this information can be updated by other users. Medical History (Updated 06/16/25 @ 20:17 by Maryanne Shell) Asthma Anxiety ADHD Surgical History (Updated 06/09/25 @ 15:36 by ROSANNE Barrera) H/O adenoidectomy Social History (Updated 06/12/25 @ 08:38 by Cora Schroeder DO) Smoking Status: Never smoker alcohol intake: never current occupational status: unemployed Travel in the last 8 weeks?: Outside the [facility] Have you lived/traveled outside [place] in past 30 days?: No Contact w/someone who lives/traveled outside US past 30 days?: No Exposure to someone with infectious disease in past 14 days?: No Do you have a fever (greater than 100.4 F or 38 C)?: No Have you tested positive for COVID-19?: No Exposed to someone with COVID-19 in past 14 days?: No Do you have a sore throat?: No Do you have a cough?: No Do you have any weakness?: No Do you have any diarrhea?: No Are you experiencing any unusual bleeding?: No Do you have any muscle aches/pain?: No Do you have any abdominal pain?: No Are you experiencing loss of taste or smell?: No ROS Obtained: Yes other Integumentary/Breasts Skin/Breast: Reports rash Physical Exam Narrative Physical exam: General: Awake, aware, in no acute distress HEENT: Normocephalic, no evidence of trauma CV: RRR, no murmurs, rubs, or gallops Pulm: CTA bilaterally with no rhonchi, rales, wheezes ABD: Nontender, no swelling, guarding, or rebound tenderness Psych, appropriate mood and affect General General appearance: alert Respiratory Respiratory exam: Present normal lung sounds bilaterally Cardiovascular Cardiovascular exam: Present regular rate Neurological Exam Neurological exam: Present alert Expanded Skin Exam Type of lesion: Present rash Distribution: other (Under left breast) Description: Present tenderness and erythematous Medical Decision Making Medical Records Screening: Per USPSTF and CDC recommendations, given the prevalence of disease in our region, it is our hospital?s policy to screen for HIV and viral Hepatitis for all patients aged 18 and over and those with ongoing risk factors. Chandan Inquiry Pt receiving controlled substance: No Vital Signs: 06/16/25 19:19 06/16/25 20:23 Temperature 97.8 F 97.8 F Temperature Source Oral Oral Pulse Rate 89 Pulse Rate [Left Radial] 97 H Respiratory Rate 17 18 Blood Pressure 116/60 Blood Pressure [Left Arm] 117/62 Blood Pressure Mean [Left Arm] 80 Blood Pressure Source Automatic Cuff Blood Pressure Source [Left Arm] Automatic Cuff Blood Pressure Position Sitting Blood Pressure Position [Left Arm] Sitting 02 Sat by Pulse Oximetry 100 Oxygen Delivery Method Room Air Room Air Medical Decision Narrative: Initial impression of presenting illness: 24-year-old female is approximately 7 weeks presents to the emergency department with complaints of an oozy rash under her left breast that she first noticed 2 hours ago. She reports she has a history of eczema. She states she has not take any medication for symptom relief prior to arrival. Differential diagnosis includes but is not limited to: Yeast infection, eczema, contact dermatitis Patient arrives hemodynamically stable, afebrile, without respiratory distress with vital signs interpreted by myself. Initial physical exam reveals an approximate half dollar sized area of erythema with slightly raised rash. Patient does report mild tenderness on palpation. Rest of exam is unremarkable. Disposition: Advised patient that we will treat with topical hydrocortisone cream. Recommend she keep the area clean and dry. Encouraged her to follow-up with her primary care provider or OB provider with any ongoing issues. Advised her if her symptoms worsen she should see dermatology for further evaluation. Instructed her to return to the emergency department with any new or worsening symptoms. Patient is agreeable to plan of care. Critical Care Critical Care Time Critical Care Time: No
--- OUTSIDE RECORDS SUMMARY | 2025-06-16 20:21 | XMS_ITS | Clinical Summary ---
Author Organization [facility] Address [address] [place] [address] Care Team Providers Care Measurement Supervisor Name Role Phone Estrellita Dietz MD Primary Care Provider [phone] Allergies Active Allergy Reactions Criticality Noted Date Comments Azithromycin Hives 11/07/2024 Encounters Date Type Department Care Team Description 05/23/2025 Telephone [facility] [address] [facility] [address] [place] [phone] Esme Cantu MD Appointment 05/17/2025 Telephone [facility] [address] [facility] [address] [place] [address] Esme Cantu MD PT NEEDS NEW OB [...] Name:Maico Mojica Date of :1971 (Home) Address: [address] [place] [address] Payer ID:[id number] (NAIC) Type:Not on file Address: [facility] [id number] [address] Care Teams Measurement Supervisor Relationship Specialty Start Date End Date Estrellita Dietz MD [address] [place] [address] PCP - General Family Medicine 07/21/18
--- OUTSIDE RECORDS SUMMARY | 2025-06-16 20:21 | XMS_ITS | Encounter Summary ---
Author Organization [facility] Address [address] [place] [address] Care Team Providers Care Fire Technology Instructor Name Role Phone Estrellita Dietz MD Primary Care Provider [phone] Encounter Details Date Type Department Care Team (Late st Contact Info) Description 05/24/2025 Results Follow-Up Obstetrics & Gynecology [address] [place] [address] Nicolas Medina MD [address] [place] [address] Social History Tobacco Use Types [...] and Family Not on file 05/17/2025 Attends Denominational Services Not on file 05/17 Active Member [...] a senior care (including now)? No 05/17/2025 [facility] Utilities Answer Date Recorded In the [...] documented as of this encounter Care Teams Fire Technology Instructor Relationship Specialty Start Date End Date Estrellita Dietz MD [address] [place] [address] PCP - General 11/30/20 documented as of this encounter
--- OUTSIDE RECORDS SUMMARY | 2025-06-16 20:21 | XMS_ITS | Clinical Summary ---
Author Organization [facility] Address [address] [place] [address] Care Team Providers Care Solar Project Manager Name Role Phone Estrellita Dietz MD Primary Care Provider [phone] Allergies Active Allergy Reactions Criticality Noted Date [...] Results Follow-Up Obstetrics & Gynecology [address] [place] [address] Nicolas Medina MD 05/31/2025 3:15 PM EST Clinical Support Obstetrics & Gynecology [address] [place] [address] , unspecified gestational age (Primary Dx) 05/31/2025 Travel 05/31/2025 Telephone Obstetrics & Gynecology [address] [place] [address] Nicolas Medina MD 05/24/2025 11:00 AM EST Clinical Support Obstetrics & Gynecology [address] [place] [address] test positive (Primary Dx) 05/24/2025 Results Follow-Up Obstetrics & Gynecology [address] [place] [address] Nicolas Medina MD 05/24/2025 Travel 05/24/2025 Telephone Obstetrics & Gynecology [address] [place] [address] Nicolas Medina MD 05/23/2025 Results Follow-Up Obstetrics & Gynecology [address] [place] [address] Nicolas Medina MD 05/23/2025 Telephone Obstetrics & Gynecology [address] [place] [address] Nicolas Medina MD 05/22/2025 3:30 PM EST Ancillary Procedure Obstetrics & Gynecology [address] [place] [address] Unsure of LMP (last menstrual period) as reason for ultrasound scan 05/22/2025 3:00 PM EST Initial Obstetrics & Gynecology [address] [place] [address] Nicolas Medina MD GA: 5w1d 05/22/2025 Travel 05/22/2025 Results Follow-Up [facility] [address] [place] [address] Halle Waldrop MD 05/19/2025 1:15 PM EDT Clinical Support [facility] [address] [place] [address] Positive test (Primary Dx) 05/19/2025 Travel 05/18/2025 Travel 05/18/2025 Telephone Obstetrics & Gynecology [address] [place] [address] Nicolas Medina MD Appointment (05/18/25 scheduled appt per WorkQ- pt requested an appt to confirm and address concerns- pt does NOT want to see Dr Lopez or the clinic staff who assisted Dr Lopez when pt was at her last appt w/ Dr Lopez ZMT/) 05/18/2025 Results Follow-Up [facility] [address] [place] [address] Av Petty 05/18/2025 Orders Only [facility] [address] [place] [address] Halle Waldrop MD Positive test (Primary Dx) 05/18/2025 Telephone [facility] [address] [place] [address] Estrellita Dietz MD Results 05/17/2025 3:20 PM EDT Office Visit [facility] [address] [place] [address] Halle Waldrop MD Missed period (Primary Dx); Positive test 05/17/2025 Travel 05/17/2025 Telephone [facility] [address] [place] [address] Estrellita Dietz MD HCN Clinical Concern/Question 04/06/2025 3:00 PM EDT Office Visit [facility] [address] [place] [address] Kathleen Lizarraga APRN Vertigo (Primary Dx); [...] and Family Not on file 05/17/2025 Attends [employer] Not on file 05/17 Active Member [...] any time in the past 12 m [facility], were you homeless or living in a fdc (including now)? No 05/17/2025 [facility] Utilities Answer Date Recorded In the past 12 months has [employer], gas, oil, or water company threatened [...] Additional history exists [facility]-Depression Screening 05/22/2026 05/22/2025, 09/2024 [facility]-Pap Smear 03/18/2027 [facility]-Zoster Vaccines (1 of 2) 2052 01/18/2014, 12/19/2003 [facility]-Hepatitis B Vaccines Completed 004, 05/02/2003, 02/17/2003 [facility]-HIB Vaccines Completed 12/09/2006, , 05/02/2003, Additional history exists [facility]-IPV Vaccines Completed 12/09/2006, 07/2003, 05/02/2003, Additional history exists [facility]-Varicella Vaccines Completed 01/18/2014, 2003 HPV Vaccines Completed 01/30/2016, 09/18, 01/18/2014 [facility]-Hepatitis A Vaccines Completed 05/19/2018, 10/18 [id number] Vaccine Discontinued 08/30/2021, 07/21/19 [facility]-HIV Screening Completed [...] 7,199(H) <5 mIU/mL 05/31/2025 7:26 PM EST [facility] Blood Venous blood specimen / Unknown Venipuncture / Unknown 05/31/2025 2:51 PM EST 05/31/2025 6:43 PM EST Narrative [facility] - 05/31/2025 7:26 PM EST Patients: Normal [...] MD LAB BLOOD ORDERABLES Final Resu lt [facility] [address] [place] [address] * Progesterone (05/31/2025 2:39 PM EST) Only the most recent of2 resultswithin the time period is included. Progesterone III 15.4 Reference Range not established ng/mL 05/31/2025 7:24 PM EST [facility] Blood Venous blood specimen / Unknown Venipuncture / Unknown 05/31/2025 2:39 PM EST 05/31/2025 6:44 PM EST Narrative [facility] - 05/31/2025 7:24 PM EST Menstrual Cycle Phase Reference Intervals: Females, 18 Y and up (ng/mL) Follicular <= 0.33 Ovulation <= 2.35 Luteal 0.5-21 Post-Menopausal <0.2 reference Intervals (ng/mL): 1st Trimester 11 - 45 2nd Trimester 25 - 84 3rd Trimester 58 - 214 Result [facility] us Nicolas Medina MD LAB BLOOD ORDERABLES Final Resu lt Performing Organization Address [facility] Co de Phone Number [facility] [address] [place] [address] * Treponema Pallidum (Syphilis) Antibodies with Reflex to RPR and RPR Titer (Those with NO known Syphilis) (05/22/2025 3:52 PM EST) Pathologist [facility] Syphilis Antibody (IgG+IgM) Nonreactive Nonreactive 05/22/2025 8:35 PM EST [facility] Comment:Nonreactive. No sero logic evidence of syphilis. No follow-up necessary unless clinically indicated (e.g., early syphilis). Blood Venous blood specimen / Unknown Venipuncture / Unknown 05/22/2025 3:52 PM EST 05/22/2025 6:48 PM EST Result [facility] us Nicolas Medina MD LAB BLOOD ORDERABLES Final Resu lt Performing Organization Address [facility] [place] [address] * Chlamydia trachomatis DNA by PCR (05/22/2025 3:52 PM EST) Pathologist [facility] Chlamydia trachomatis DNA PCR Result Not Detected Not Detected 05/23/2025 2:37 PM EST [facility] Urine Urine specimen obtained by clean catch procedure / Unknown Non-blood Collection / Unknown 05/22/2025 3:52 PM EST 05/22/2025 6:47 PM EST Narrative [facility] - 05/23/2025 2:37 PM EST This test is performed by the [employer] instrument for Real Time PCR C. trachomatis and N. gonorrhea. This test is FDA approved for use with endocervical, vaginal, and urine specimens. This test is used for clinical purposes. It should not be regarded as invesigational or for research. The [facility] Clinical Microbiology Laboratory is certified under the Clinical Laboratory Improvement Amendments of 1988 (CLIA-88) as qualified to perform high complexity clinical laboratory testing. Result Claudia Medina MD LAB MICROBIOLOGY - GENERAL ORDE [facility] Final Result Performing Organization Address City/[facility]/ZIP Co de Phone Number [facility] [address] [place] [address] * HIV 1 & 2 Antibody/Antigen Screen (05/22/2025 3:52 PM EST) Pathologist [facility] HIV 1 & 2 Antibody/Antigen Screen Non [...] ORDERABLES Final Resu lt Performing Organization Address [facility]/ZIP Co de Phone Number [facility] [address] [place] [address] * Hepatitis C Antibody w/Reflex to HCV Quant PCR (05/22/2025 3:52 PM EST) Pathologist [facility] Hepatitis C Antibody Negative Negative 05/22/2025 7:29 PM EST [facility] Blood Venous blood specimen / Unknown Venipuncture / Unknown 05/22/2025 3:52 PM EST 05/22/2025 6:48 PM EST Result Claudia Medina MD LAB BLOOD ORDERABLES Final Resu lt Performing Organization Address City/[facility]/ZIP Co de Phone Number [facility] [address] [place] [address] * Neisseria gonorrhea DNA by PCR (05/22/2025 3:52 PM EST) Pathologist [facility] Neisseria gonorrhea DNA PCR Result Not Detected Not Detected. 05/23/2025 2:37 PM EST [facility] Urine Urine specimen obtained by clean catch procedure / Unknown Non-blood Collection / Unknown 05/22/2025 3:52 PM EST 05/22/2025 6:47 PM EST Narrative [facility] - 05/23/2025 2:37 PM EST This test is performed by the [employer] m2000 instrument for Real Time PCR C. trachomatis and N. gonorrhea. This test is FDA approved for use with endocervical, vaginal, and urine specimens. This test is used for clinical purposes. It should not be regarded as invesigational or for research. The [facility] Clinical Microbiology Laboratory is certified under the Clinical Laboratory Improvement Amendments of 1988 (CLIA-88) as qualified to perform high complexity clinical laboratory testing. us Nicolas Medina MD LAB MICROBIOLOGY - GENERAL ORDE [facility] Final Result Performing Organization Address [facility] Co de Phone Number [facility] [address] [place] [address] * Rubella Antibody IgG (05/22/2025 3:52 PM EST) Rubella Antibody IgG Negative Negative 05/22/2025 9:27 PM EST [facility] Comment: Rubella IgG Result Interpretation: Negative: No [...] Resu lt Performing Organization Address City/[facility]/ZIP Co de Phone Number [facility] [address] [place] [address] * Hepatitis B Surface Antigen (05/22/2025 3:52 PM EST) Hepatitis B Surf Antigen Negative Negative 05/22/2025 8:35 PM EST [facility] Blood Venous blood specimen / Unknown Venipuncture / Unknown 05/22/2025 3:52 PM EST 05/22/2025 6:48 PM EST us Nicolas Medina MD LAB BLOOD ORDERABLES Final Resu lt [facility] [address] [place] [address] * CBC W/O Differential (05/22/2025 3:52 PM [...] ORDERABLES Final Resu lt Performing Organization Address [facility] Co de Phone Number [facility] [address] [place] [address] * Type and Screen (05/22/2025 3:52 PM [...] TEST ORDERABLES Final Result Performing Organization Address [facility] Phone Number BLOOD BANK [address] [place] [address] * Urine Culture (05/22/2025 3:52 PM EST) Culture <10,000 CFU/mL Mixed urogenital, fecal, or skin sophia present. 05/24/2025 9:27 AM EST [facility] Urine Urine specimen obtained by clean catch procedure / Unknown Non-blood Collection / Unknown 05/22/2025 3:52 PM EST 05/22/2025 6:47 PM EST us Nicolas Medina MD LAB MICROBIOLOGY - GENERAL ORDE [facility] Final Result Performing Organization Address City/[facility]/ZIP Co de Phone Number [facility] [address] [place] [address] * OB US Transvaginal (05/22/2025 3:29 PM EST) Anatomical Region Laterality Modality Pelvis Ultrasound 05/22/2025 3:32 PM EST Impressions 05/22/2025 3:41 PM EST The OB Ultrasound you requested has been resulted. Please navigate to the Imaging tab in [employer] for review. This message has been generated by the interface. Narrative Procedure Note Nicolas Medina MD - 05/22/2025 IMPRESSION: The OB Ultrasound you requested has been resulted. Please navigate to theImaging tab in [employer] for review. This message has been generated by theinterface. us Nicolas Medina MD IMG OB US PROCEDURES Final Resu lt * (ABNORMAL) Test Qualitative Plasma (05/17/2025 3:43 PM EDT) Test Positive(A ) Negative 05/17/2025 7:18 PM EDT [facility] Blood Venous blood specimen / Unknown Venipuncture / Unknown 05/17/2025 3:43 PM EDT 05/17/2025 3:43 PM EDT Narrative [facility] - 05/17/2025 7:18 PM EDT Positive, greater than 6 mIU/hCG mL. Halle Waldrop MD LAB BLOOD ORDERABLES Final Result [facility] [address] [place] [address] * POCT Urine (05/17/2025 3:27 PM EDT) [...] 3 Months Insurance [employer] MEDICAID [facility] [place] 068 Advance Directives * Full Code (Latest Code Status on File) Date Activated Date Inactivated Comments 11/24/2024 9:20 PM 11/26/2024 4:06 PM Question Answer Comments I have reviewed the capacity from the link above and, if needed, have updated to appropriate status: Yes Care Teams Solar Project Manager Relationship Specialty Start Date End Date Estrellita Dietz MD [address] [place] [address] PCP - General 11/30/20
--- OUTSIDE RECORDS SUMMARY | 2025-06-16 20:21 | XMS_ITS | Encounter Summary ---
Author Organization Healthcare Address [address] [place] [address] Care Team Providers Care Transfer Coordinator Name Role Phone Estrellita Dietz MD Primary Care Provider [phone] Encounter Details Date Type Department Care Team (Late st Contact Info) Description 06/19/2022 Outside Procedure External Location [address] [place] [address] Bahman Kumar, RESIDENTIAL PROPERTY MANAGER [address] [place] [address] Social History Tobacco Use Types [...] Not at all 06/19/2022 4:05 PM EST Smith, Huma Feeling down, depressed, or hopeless Not at all 07/2021 4:05 PM EST Smith, Huma Patient Health Questionnaire-2 Score 0 07/2021 4:05 PM EST Smith, Huma * Calculated C-SSRS Risk Score (Lifetime/Recent) Answer Date of Assessment Author No Risk Indicated 06/19/2022 4:05 PM EST Smith, Huma * Question Answer Date of Assessment Author 1. Wish to be (Past 1 Month) No 022 4:05 PM EST Smith, Huma 2. Non-Specific Active Suici shon Thoughts (Past 1 Month) No 06/19/2022 4:05 PM EST Smith, Huma 6. Suicidal Behavior (Lifetime) No 4:05 PM EST Smith, Huma documented as of this encounter Plan of [...] PM EST Narrative 06/20/2022 10:46 [place] [address] Name: WILDER MOJICA Exam Date: 06/19/2022 : 2000 Age 21 Gender: F Physician: BAHMAN KUMAR Facility: [facility] Facility HSV: Outpatient Exam: WRIST 3V [...] Thank you for referring WILDER MOJICA to [facility]. Legally authenticated by PASQUALE DURAND 2022-06-20 10:35:18 Procedure Note Provider, Priyank Paisley - 06/20/[address] [address] Name: WILDER MOJICA Exam Date: 06/19/2022 : 2000 Age 21 Gender: F Physician: BAHMAN KUMAR Facility: [facility] Facility HSV: Outpatient Exam: WRIST 3V [...] Thank you for referring WILDER MOJICA to [facility]. Legally authenticated by PASQUALE DURAND 2022-06-20 10:35:18 Bahman Kumar RESIDENTIAL PROPERTY MANAGER IMG XR PROCEDURES Final R esult documented in this encounter Visit Diagnoses Not on filedocumented in this encounter Additional Health Concerns Assessment Noted Time A fall risk assessment has been complete d for the patient 06/19/2022 4:06 PM EST documented as of this encounter Care Teams Transfer Coordinator Relationship Specialty Start Date End Date Estrellita Dietz MD [address] [place] [address] PCP - General 11/30/20 documented as of this encounter
--- OUTSIDE RECORDS SUMMARY | 2025-06-16 20:21 | XMS_ITS | Encounter Summary ---
Author Organization Healthcare Address [address] [place] [address] Care Team Providers Care Email Engineer Name Role Phone Estrellita Dietz MD Primary Care Provider [phone] Encounter Details Date Type Department Care Team (Late st Contact Info) Description 06/19/2022 Outside Procedure External Location [address] [place] [address] Bahman Kumar, CLINICAL QUALITY ASSURANCE SPECIALIST [address] [place] [address] Social History Tobacco Use Types [...] Laterality Modality Lower Extremities, Knee [facility] 06/19/2022 4:44 PM EST Narrative 06/20/2022 10:46 [place] [address] Name: WILDER MOJICA Exam Date: 06/19/2022 : 2000 Age 21 Gender: F Physician: BAHMAN KUMAR Facility: [facility] Facility HSV: Outpatient Exam: [id number] [...] Thank you for referring WILDER MOJICA to [facility]. Legally authenticated by PASQUALE DURAND 2022-06-20 10:34:39 Procedure Note Provider, Priyank Acworth - 06/20/2022 [address] [place] [address] Name: WILDER MOJICA Exam Date: 06/19/2022 : 2000 Age 21 Gender: F Physician: BAHMAN KUMAR Facility: [facility] Facility HSV: Outpatient Exam: [id number] 4V MIN LT Left knee 4 VIEW HISTORY: Pain. FINDINGS: No evidence of an acute, displaced fracture or dislocation ofthe visualized bony architecture. The joint spaces appear normal. IMPRESSION: No acute bony abnormality. Dictated By: Jonathon Hiceky Transcribed By: Jonathon Villafana Transcribed On: 06/20/2022 10:34 AM Electronically signed by: Jonathon Hickey 06/20/2022 Thank you for referring WILDER MOJICA to [facility]. Legally authenticated by PASQUALE DURAND 2022-06-20 10:34:39 Bahman Kumar CLINICAL QUALITY ASSURANCE SPECIALIST IMG XR PROCEDURES Final R esult documented in this encounter Visit Diagnoses Not on filedocumented in this encounter Additional Health Concerns Assessment Noted Time A fall risk assessment has been complete d for the patient 06/19/2022 4:06 PM EST documented as of this encounter Care Teams Email Engineer Relationship Specialty Start Date End Date Estrellita Dietz MD [address] [place] [address] PCP - General 11/30/20 documented as of this encounter
--- OUTSIDE RECORDS SUMMARY | 2025-06-16 20:21 | XMS_ITS | Encounter Summary ---
Author Organization [facility] Address [address] [place] [address] Care Team Providers Care Salvage Winder And Inspector Name Role Phone Estrellita Dietz MD Primary Care Provider [phone] Encounter Details Date Type Department Care Team (Late st Contact Info) Description 09/19/2024 Outside Procedure External Location [address] [place] [address] Provider, Priyank Tutor Key Social History Tobacco Use Types Packs/Day Years [...] place to sleep or slept in a alf (including now)? No 04/15/2024 PHQ-9 Answer Date [...] were you homeless or living in a alf (including now)? No 08/22/2024 Safety and Environment [...] PM EST Narrative 09/19/2024 9:37 [place] [address] Name: WILDER MOJICA Exam Date: 09/19/2024 : 2000 Age 23 years Gender: F Physician: SANTA NEGRETE Facility: [facility] Facility HSV: Outpatient Exam: CT ABD [...] Thank you for referring WILDER MOJICA to [facility]. Legally authenticated by BROOKS REGAN 2024-09-19 21:33:54 Procedure Note Provider, [facility] 09/19/2024 [place] [address] Name: WILDER MOJICA Exam Date: 09/19/2024 : 2000 Age 23 years Gender: F Physician: SANTA NEGRETE Facility: [facility] Facility HSV: Outpatient Exam: CT ABD [...] Thank you for referring WILDER MOJICA to [facility]. Legally authenticated by BROOKS REGAN 2024-09-19 21:33:54 Generic Tutor Key Provider IMG CT PROCEDURES Fi nal Result [...] documented as of this encounter Care Teams Salvage Winder And Inspector Relationship Specialty Start Date End Date Estrellita Dietz MD [address] [place] [address] PCP - General 11/30/20 documented as of this encounter
--- OUTSIDE RECORDS SUMMARY | 2025-06-16 20:21 | XMS_ITS | Encounter Summary ---
Author Organization [facility] Address [address] [place] [address] Care Team Providers Care Sight Effects Specialist Name Role Phone Estrellita Dietz MD Primary Care Provider [phone] Encounter Details Date Type Department Care Team [...] time in the past 12 m [facility], were you homeless or living in a half-way (including now)? No 05/17/2025 [facility] Utilities Answer Date Recorded In the [...] documented as of this encounter Care Teams Sight Effects Specialist Relationship Specialty Start Date End Date Estrellita Dietz MD [address] [place] [address] PCP - General 11/30/20 documented as of this encounter
--- OUTSIDE RECORDS SUMMARY | 2025-06-16 20:21 | XMS_ITS | Encounter Summary ---
Author Organization [facility] Address [address] [place] [id number] Care Team Providers Care Herbicide Sprayer Name Role Phone Estrellita Dietz MD Primary Care Provider [phone] Reason for Visit * Reason Onset Date Comments Appointment 05/23/2025 Encounter Details Date Type Department Care Team (Late st Contact Info) Description 05/23/2025 Telephone [facility] OBGYN [address] [address] Esme Cantu MD [address] [facility] [address] [place] [id number] Appointment Social History Tobacco Use Types Packs/Day [...] IS SINCE THERE WAS NOTHING EARLIER IN [facility] * Telephone Encounter - Cora Roa RegSched Rep - 05/23/2025 9:50 AM EST Provider: Esme Cantu MD Caller: Spencer Mojica Female, 24 y.o., 2000 CSN: [id number] Reason for Call: PT REQ NEW OB APPT ON 06-21-25 BE AT [facility] LOCATION INSTEAD OF [facility], UNABLE TOWARM TRANSFER, PT REQ A CALL BACK PT DOES NOT PREFER TO BE SEEN AT [facility] LOCATION DUE TO BEING TOLD SHE WASN'T CONSIDERED HIGH RISK documented in this encounter Plan of Treatment Not on file documented as of this encounter Visit Diagnoses Not on filedocumented in this encounter Care Teams Herbicide Sprayer Relationship Specialty Start Date End Date Estrellita Dietz MD [address] [place] [address] PCP - General Family Medicine 07/21/18 documented as of this encounter
--- OUTSIDE RECORDS SUMMARY | 2025-06-16 20:21 | XMS_ITS | Encounter Summary ---
Author Organization [facility] Address [address] [place] [address] Care Team Providers Care Battery Mechanic Name Role Phone Estrellita Dietz MD Primary Care Provider [phone] Encounter Details Date Type Department Care Team (Late st Contact Info) Description 08/28/2024 Outside Procedure External Location [address] [place] [address] Provider, Priyank Usk Social History Tobacco Use Types Packs/Day Years [...] place to sleep or slept in a snf (including now)? No 04/15/2024 PHQ-9 Answer Date [...] were you homeless or living in a snf (including now)? No 08/22/2024 Safety and Environment [...] PM EST Narrative 08/29/2024 1:06 [place] [address] Name: WILDER MOJICA Exam Date: 08/28/2024 : 2000 Age 23 years Gender: F Physician: ROCIO HASSAN Facility: [facility] Facility HSV: Outpatient Exam: CHEST PORTABLE FINAL [...] to [facility]. Legally authenticated by ALFRED GRIFFIN 2024-08-29 01:04:15 Procedure Note Provider, Priyank Usk - 08/29/2024 [facility] [address] [place] [address] Name: WILDER MOJICA Exam Date: 08/28/2024 : 2000 Age 23 years Gender: F Physician: ROCIO HASSAN Facility: [facility] Facility HSV: Outpatient Exam: CHEST PORTABLE FINAL [...] Thank you for referring WILDER MOJICA to [facility]. Legally authenticated by ALFRED GRIFFIN 2024-08-29 01:04:15 Generic Usk Provider IMG XR PROCEDURES Fi nal Result [...] documented as of this encounter Care Teams Battery Mechanic Relationship Specialty Start Date End Date Estrellita Dietz MD [address] [place] [address] PCP - General 11/30/20 documented as of this encounter
--- OUTSIDE RECORDS SUMMARY | 2025-06-16 20:21 | XMS_ITS | Encounter Summary ---
Author Organization [facility] Address [address] [place] [address] Care Team Providers Care Budget Accountant Name Role Phone Estrellita Dietz MD Primary Care Provider [phone] Reason for Visit * Reason Comments Med Change Request Encounter Details Date Type Department Care Team (Late st Contact Info) Description 07/19/2024 Refill [facility] [address] [place] [address] Estrellita Dietz MD [address] [place] [address] Anxiety Social History Tobacco Use [...] place to sleep or slept in a usp (including now)? No 04/15/2024 PHQ-9 Answer Date [...] documented as of this encounter Care Teams Budget Accountant Relationship Specialty Start Date End Date Estrellita Dietz MD [address] [address] PCP - General 11/30/20 documented as of this encounter
--- OUTSIDE RECORDS SUMMARY | 2025-06-16 20:21 | XMS_ITS | Encounter Summary ---
Author Organization [facility] Address [address] [place] [address] Care Team Providers Care Sack Repairer Name Role Phone Estrellita Dietz MD Primary Care Provider [phone] Encounter Details Date Type Department Care Team (Late st Contact Info) Description 05/31/2025 Telephone Obstetrics & Gynecology [address] [place] [address] Nicolas Medina MD [address] [place] [address] Social History Tobacco Use Types [...] time in the past 12 m [facility], were you homeless or living in a long term (including now)? No 05/17/2025 [facility] Utilities Answer Date Recorded In the past [...] she's in; please call Best contact number: [phone] (mobile) Optimal time of day to reach [...] will receive notification of the communication/outcome via [employer]. documented in this encounter Plan of Treatment [...] documented as of this encounter Care Teams Sack Repairer Relationship Specialty Start Date End Date Estrellita Dietz MD [address] [place] [address] PCP - General 11/30/20 documented as of this encounter
--- OUTSIDE RECORDS SUMMARY | 2025-06-16 20:21 | XMS_ITS | Encounter Summary ---
Author Organization [facility] Address [address] [place] [address] Care Team Providers Care Network Systems Integrator Name Role Phone Estrellita Dietz MD Primary Care Provider Encounter Details Date Type Department Care Team (Late st Contact Info) Description 11/18/2024 Outside Procedure External Location [address] [place] [address] Provider, Priyank Turner Social History Tobacco Use Types Packs/Day Years [...] AM EDT Narrative 11/18/2024 9:35 [place] [address] Name: WILDER VOGT Exam Date: 11/18/2024 : 2000 Age 23 years Gender: F Physician: SANTA NEGRETE Facility: [facility] Facility HSV: Outpatient Exam: OB EXAM [...] Hewitt 11/18/2024 Thank you for referring WILDER VOGT to [facility]. Legally authenticated by MAIK CORMIER 2024-11-18 09:27:47 Procedure Note Provider, Priyank Turner - 11/18/2024 [facility] [address] [place] [address] Name: WILDER VOGT Exam Date: 11/18/2024 : 2000 Age 23 years Gender: F Physician: SANTA NEGRETE Facility: [facility] Facility HSV: Outpatient Exam: OB EXAM [...] Hewitt 11/18/2024 Thank you for referring WILDER VOGT to [facility]. Legally authenticated by MAIK CORMIER 2024-11-18 09:27:47 us Generic Turner Provider IMG OB US PROCEDURES Final Result [...] documented as of this encounter Care Teams Network Systems Integrator Relationship Specialty Start Date End Date Estrellita Dietz MD [address] [place] [address] PCP - General 11/30/20 documented as of this encounter
--- OUTSIDE RECORDS SUMMARY | 2025-06-16 20:21 | XMS_ITS | Encounter Summary ---
Author Organization [facility] Address [address] [place] [address] Care Team Providers Care Manager Continuous Improvement Name Role Phone Estrellita Dietz MD Primary Care Provider [phone] Encounter Details Date Type Department Care Team (Late st Contact Info) Description 04/25/2024 Outside Procedure External Location [address] [place] [address] Provider, Priyank [place] Social History Tobacco Use Types Packs/Day Years [...] in a mcc (including now)? No 04/15/2024 Safety and Environment [...] PM EDT Narrative 04/25/2024 5:57 [place] [address] Name: WILDER MOJICA Exam Date: 04/25/2024 : 2000 Age 23 years Gender: F Physician: ROCIO HASSAN Facility: [facility] Facility HSV: Outpatient Exam: HAND LT [...] Thank you for referring WILDER MOJICA to [facility]. Legally authenticated by ALYCE HAN 2024-04-25 17:51:15 Procedure Note Provider, [facility] - 04/25/2024 [place] [address] Name: WILDER MOJICA Exam Date: 04/25/2024 : 2000 Age 23 years Gender: F Physician: ROCIO HASSAN Facility: [facility] Facility HSV: Outpatient Exam: HAND LT [...] Thank you for referring WILDER MOJICA to [facility]. Legally authenticated by ALYCE HAN 2024-04-25 17:51:15 Generic [place] Provider IMG XR PROCEDURES Fi nal Result documented in this encounter Visit Diagnoses Not on filedocumented in this encounter Additional Health Concerns Assessment Noted Time A fall risk assessment has been complete d for the patient 03/30/2024 3:05 PM EDT A Body Mass Index follow-up plan has been documented for the patient 04/15/2024 1:55 PM EDT documented as of this encounter Care Teams Manager Continuous Improvement Relationship Specialty Start Date End Date Estrellita Dietz MD [address] [place] [address] PCP - General 11/30/20 documented as of this encounter
--- OUTSIDE RECORDS SUMMARY | 2025-06-16 20:21 | XMS_ITS | Encounter Summary ---
Author Organization [facility] Address [address] [place] [address] Care Team Providers Care Lead Software Engineer Name Role Phone Estrellita Dietz MD Primary Care Provider [phone] Reason for Visit * Reason Onset Date Comments PT NEEDS NEW OB APPT- DR CANTU 05/17/2025 Encounter Details Date Type Department Care Team (Late st Contact Info) Description 05/17/2025 Telephone [facility] [address] [facility] [address] [place] [address] Esme Cantu MD [address] [facility] [address] [place] [address] PT NEEDS NEW OB APPT- DR CANTU [...] to patient: Self Best call back number: [phone] Patient is needing: TO SCHEDULE NEW OB APPT W/ DR CANTU LMP 04/16/25 PLEASE CALL documented in this encounter Plan of Treatment Not on file documented as of this encounter Visit Diagnoses Not on filedocumented in this encounter Care Teams Lead Software Engineer Relationship Specialty Start Date End Date Estrellita Dietz MD [address] [place] [address] PCP - General Family Medicine 07/21/18 documented as of this encounter
--- OUTSIDE RECORDS SUMMARY | 2025-06-16 20:22 | XMS_ITS | Encounter Summary ---
Author Organization [facility] Address [address] [place] [address] Care Team Providers Care Shearer Helper Name Role Phone Estrellita Dietz MD Primary Care Provider [phone] Encounter Details Date Type Department Care Team (Late st Contact Info) Description 05/18/2025 Results Follow-Up [facility] Medicine [address] [place] [address] Av Petty Social History Tobacco [...] and Family Not on file 05/17/2025 Attends Pentecostal Services Not on file 05/17 Active Member [...] any time in the past 12 m [facility], were you homeless or living in a fdc (including now)? No 05/17/2025 [facility] Utilities Answer Date Recorded In the past 12 months has th e electric, gas, oil, or water company threatened to shut off services in your home? No 05/17/2025 Safety and Environment Answer Date Emilaino rded Do you worry that your child [...] documented as of this encounter Care Teams Shearer Helper Relationship Specialty Start Date End Date Estrellita Dietz MD [address] [place] [address] PCP - General 11/30/20 documented as of this encounter
--- OUTSIDE RECORDS SUMMARY | 2025-06-16 20:22 | XMS_ITS | Encounter Summary ---
Author Organization [facility] Address [address] [place] [address] Care Team Providers Care Bead Wrapper Name Role Phone Estrellita Dietz MD Primary Care Provider [phone] Encounter Details Date Type Department Care Team [...] and Family Not on file 05/17/2025 Attends Worship Services Not on file 05/17 Active Member [...] any time in the past 12 m [facility], were you homeless or living in a usp (including now)? No 05/17/2025 [facility] Utilities Answer Date Recorded In the past [...] documented as of this encounter Care Teams Bead Wrapper Relationship Specialty Start Date End Date Estrellita Dietz MD [address] [place] [address] PCP - General 11/30/20 documented as of this encounter
--- OUTSIDE RECORDS SUMMARY | 2025-06-16 20:22 | XMS_ITS | Encounter Summary ---
Author Organization [facility] Address [address] [place] [address] Care Team Providers Care Turfgrass Management Professor Name Role Phone Estrellita Dietz MD Primary Care Provider [phone] Encounter Details Date Type Department Care Team (Late st Contact Info) Description 05/23/2025 Results Follow-Up Obstetrics & Gynecology [address] [place] [address] Nicolas Medina MD [address] [place] [address] Social History Tobacco Use Types [...] and Family Not on file 05/17/2025 Attends Buddhist Services Not on file 05/17 Active Member [...] in the past 12 m [facility], were you homeless or living in a jail (including now)? No 05/17/2025 [facility] [...] documented as of this encounter Care Teams Turfgrass Management Professor Relationship Specialty Start Date End Date Estrellita Dietz MD [address] [place] [address] PCP - General 11/30/20 documented as of this encounter
--- OUTSIDE RECORDS SUMMARY | 2025-06-16 20:22 | XMS_ITS | Encounter Summary ---
Author Organization [facility] Address [address] [place] [address] Care Team Providers Care Technical Support Director Name Role Phone Estrellita Dietz MD Primary Care Provider [phone] Encounter Details Date Type Department Care Team [...] and Family Not on file 05/17/2025 Attends Rastafarian Services Not on file 05/17 Active Member [...] any time in the past 12 m [facility], were you homeless or living in a nursing home (including now)? No 05/17/2025 [facility] Utilities Answer Date Recorded In the [...] documented as of this encounter Care Teams Technical Support Director Relationship Specialty Start Date End Date Estrellita Dietz MD [address] [place] [address] PCP - General 11/30/20 documented as of this encounter
--- OUTSIDE RECORDS SUMMARY | 2025-06-16 20:22 | XMS_ITS | Encounter Summary ---
Author Organization [facility] Address [address] [place] [address] Care Team Providers Care Commercial Appraiser Name Role Phone Estrellita Dietz MD Primary Care Provider [phone] Reason for Visit * Reason Onset Date Comments Appointment 05/18/2025 05/18/25 [facility] ed appt per WorkQ- pt requested an appt to confirm and address concerns- pt does NOT want to see Dr Lopez or the clinic staff who assisted Dr Lopez when pt was at her last appt w/ Dr John PEÑA Encounter Details Date Type Department Care Team (Late st Contact Info) Description 05/18/2025 Telephone Obstetrics & Gynecology [address] [place] [address] Nicolas Medina MD [address] [place] [address] Appointment (05/18/25 scheduled appt per [...] any time in the past 12 m [facility], were you homeless or living in a penitentiary (including now)? No 05/17/2025 [facility] Utilities Answer Date Recorded In the [...] documented as of this encounter Care Teams Commercial Appraiser Relationship Specialty Start Date End Date Estrellita Dietz MD [address] [place] [address] PCP - General 11/30/20 documented as of this encounter
--- OUTSIDE RECORDS SUMMARY | 2025-06-16 20:22 | XMS_ITS | Encounter Summary ---
Author Organization [facility] Address [address] [place] [address] Care Team Providers Care Farm Machine Operator Name Role Phone Estrellita Dietz MD Primary Care Provider [phone] Reason for Visit * Reason Onset Date Comments Results 05/18/2025 Encounter Details Date Type Department Care Team (Late st Contact Info) Description 05/18/2025 Telephone [facility] & [address] [address] Estrellita Dietz MD [address] [place] [address] Results Social History Tobacco Use Types [...] and Family Not on file 05/17/2025 Attends Hoahaoism Services Not on file 05/17 Active Member [...] living in a longterm (including now)? No 05/17/2025 [facility] Utilities Answer Date Recorded In the [...] optimal time of day to reach caller: [phone] - anytime Note: Please do not reply to this message. Follow-up communication and further actions as a result of this message need to be communicated with the patient directly, if the patient is not active onMyChart. If the patient is active on MyChart, they will receive notification of the communication/outcome via [employer]. documented in this encounter Plan of Treatment [...] documented as of this encounter Care Teams Farm Machine Operator Relationship Specialty Start Date End Date Estrellita Dietz MD [address] [place] [address] PCP - General 11/30/20 documented as of this encounter
--- OUTSIDE RECORDS SUMMARY | 2025-06-16 20:22 | XMS_ITS | Encounter Summary ---
Author Organization [facility] Address [address] [place] [address] Care Team Providers Care Tack Coverer Name Role Phone Estrellita Dietz MD Primary Care Provider [phone] Reason for Visit * Reason Onset Date Comments HCN Clinical Concern/Question 05/17/2025 Encounter Details Date Type Department Care Team (Late st Contact Info) Description 05/17/2025 Telephone [facility] & [address] [address] Estrellita Dietz MD [address] [place] [address] HCN Clinical Concern/Question Social History Tobacco [...] and Family Not on file 05/17/2025 Attends Hindu Services Not on file 05/17 Active Member [...] in the past 12 m [facility], were you homeless or living in a custodial (including now)? No 05/17/2025 [facility] Utilities Answer Date Recorded In [...] pt for more information. Best contact number: [phone] (mobile) Optimal time of day to reach caller: ANYTIME Additional comments/information from caller: None Note: Please do not reply to this message. Follow-up communication and further actions as a result of this message need to be communicated with the patient directly, if the patient is not active onMyChart. If the patient is active on MyChart, they will receive notification of the communication/outcome via [employer]. documented in this encounter Plan of Treatment [...] documented as of this encounter Care Teams Tack Coverer Relationship Specialty Start Date End Date Estrellita Dietz MD [address] [place] [address] PCP - General 11/30/20 documented as of this encounter
--- OUTSIDE RECORDS SUMMARY | 2025-06-16 20:22 | XMS_ITS | Encounter Summary ---
Author Organization [facility] Address [address] [place] [address] Care Team Providers Care Magnetic Resonance Imaging Coordinator Name Role Phone Estrellita Dietz MD Primary Care Provider [phone] Encounter Details Date Type Department Care Team [...] time in the past 12 m [facility], were you homeless or living in a [place] [facility] [place] facility (including now)? No 05/17/2025 [facility] Utilities Answer Date Recorded In the [...] documented as of this encounter Care Teams Magnetic Resonance Imaging Coordinator Relationship Specialty Start Date End Date Estrellita Dietz MD [address] [place] [address] PCP - General 11/30/20 documented as of this encounter
--- OUTSIDE RECORDS SUMMARY | 2025-06-16 20:22 | XMS_ITS | Encounter Summary ---
Author Organization [facility] Address [address] [place] [address] Care Team Providers Care Environmental Sustainability Manager Name Role Phone Estrellita Dietz MD Primary Care Provider [phone] Encounter Details Date Type Department Care Team [...] time in the past 12 m [facility], were you homeless or living in a retirement (including now)? No 05/17/2025 [facility] Utilities Answer Date Recorded In the [...] Health Questionnaire-9 Score 0 09/2024 3:13 PM EST Maryanne Schmidt * How [...] documented as of this encounter Care Teams Environmental Sustainability Manager Relationship Specialty Start Date End Date Estrellita Dietz MD [address] [place] [address] PCP - General 11/30/20 documented as of this encounter
--- OUTSIDE RECORDS SUMMARY | 2025-06-16 20:22 | XMS_ITS | Encounter Summary ---
Author Organization [facility] Address [address] [place] [address] Care Team Providers Care Commercial Sales Consultant Name Role Phone Estrellita Dietz MD Primary Care Provider [phone] Encounter Details Date Type Department Care Team (Late st Contact Info) Description 05/18/2025 Orders Only [facility] [address] [place] [address] Halle Waldrop MD [address] [place] [address] Positive test (Primary Dx) Social [...] and Family Not on file 05/17/2025 Attends Jainism Services Not on file 05/17 Active Member [...] No 05/17/2025 Housing Stability Vital Sign Answer Ja e Recorded In the last 12 months, was t here a time when you were not able to pay the mortgage or rent on time? No 05/17/2025 In the past 12 months, how m any times have you moved where you were living? 1 05/17/2025 At any time in the past 12 m [facility], were you homeless or living in a assisted (including now)? No 05/17/2025 [facility] Utilities Answer Date Recorded In [...] 44.4(H) <5 mIU/mL 05/18/2025 1:07 PM EDT [facility] Blood Venous blood specimen / Unknown Venipuncture / Unknown 05/17/2025 3:43 PM EDT 05/17/2025 3:43 PM EDT Narrative [facility] - 05/18/2025 1:07 PM EDT [...] BLOOD ORDERABLES Final Result Performing Organization Address City/State/[facility] Co de Phone Number [facility] [address] [place] [address] documented in this encounter Visit Diagnoses Diagnosis [...] as of this encounter Care Teams Commercial Sales Consultant Relationship Specialty Start Date End Date Estrellita Dietz MD [address] [place] [address] PCP - General 11/30/20 documented as of this encounter
--- OUTSIDE RECORDS SUMMARY | 2025-06-16 20:22 | XMS_ITS | Encounter Summary ---
Author Organization [facility] Address [address] [place] [address] Care Team Providers Care Wet Milling Wheel Operator Name Role Phone Estrellita Dietz MD Primary Care Provider [phone] Encounter Details Date Type Department Care Team (Late st Contact Info) Description 05/22/2025 Results Follow-Up [facility] [address] [place] [address] Halle Waldrop MD [address] [place] [address] Social History Tobacco Use Types [...] any time in the past 12 m [facility], were you homeless or living in a long-term (including now)? No 05/17/2025 [facility] Utilities Answer Date Recorded In [...] usual. Not at all 05/22/2025 3:13 PM EST Maryanne cShmidt Thoughts that you would be b cory off or hurting yourself in some way Not at all 05/22/2025 3:13 PM Maryanne Mayo Patient Health Questionnaire-9 Score 0 110 09/2024 3:13 PM Maryanne Mayo * How [...] documented as of this encounter Care Teams Wet Milling Wheel Operator Relationship Specialty Start Date End Date Estrellita Dietz MD [address] [place] [address] PCP - General 11/30/20 documented as of this encounter
--- OUTSIDE RECORDS SUMMARY | 2025-06-16 20:22 | XMS_ITS | Encounter Summary ---
Author Organization [facility] Address [address] [place] [address] Care Team Providers Care Food Editor Name Role Phone Estrellita Dietz MD Primary Care Provider [phone] Encounter Details Date Type Department Care Team (Late st Contact Info) Description 05/24/2025 Telephone Obstetrics & Gynecology [address] [place] [address] Nicolas Medina MD [address] [place] [address] Social History Tobacco Use Types [...] and Family Not on file 05/17/2025 Attends Religion Services Not on file 05/17 Active Member [...] time in the past [address] [facility], were you homeless or living in a long-term (including now)? No 05/17/2025 [facility] [...] HCG levels. Please call. Best contact number: [phone] (mobile) Optimal time of day to reach caller: ANYTIME Additional comments/information from caller: None Note: Please do not reply to this message. Follow-up communication and further actions as a result of this message need to be communicated with the patient directly, if the patient is not active onMyChart. If the patient is active on MyChart, they will receive notification of the communication/outcome via [employer]. documented in this encounter Plan of Treatment [...] documented as of this encounter Care Teams Food Editor Relationship Specialty Start Date End Date Estrellita Dietz MD [address] [place] [address] PCP - General 11/30/20 documented as of this encounter
--- OUTSIDE RECORDS SUMMARY | 2025-06-16 20:22 | XMS_ITS | Encounter Summary ---
Author Organization [facility] Address [address] [place] [address] Care Team Providers Care Irrigator Sprinkling System Name Role Phone Estrellita Dietz MD Primary Care Provider [phone] Encounter Details Date Type Department Care Team [...] and Family Not on file 05/17/2025 Attends Faith Services Not on file 05/17 Active Member [...] in a prison (including now)? No 05/17/2025 [facility] Utilities Answer Date Recorded In the past [...] documented as of this encounter Care Teams Irrigator Sprinkling System Relationship Specialty Start Date End Date Estrellita Dietz MD [address] [address] PCP - General 11/30/20 documented as of this encounter
--- OUTSIDE RECORDS SUMMARY | 2025-06-16 20:22 | XMS_ITS | Encounter Summary ---
Author Organization [facility] Address [address] [place] [address] Care Team Providers Care Slide Developer Name Role Phone Estrellita Dietz MD Primary Care Provider [phone] Encounter Details Date Type Department Care Team (Late st Contact Info) Description 05/23/2025 Telephone Obstetrics & Gynecology [address] [place] [address] Nicolas Medina MD [address] [place] [address] Social History Tobacco Use Types [...] and Family Not on file 05/17/2025 Attends Restoration Services Not on file 05/17 Active Member [...] a care home (including now)? No 05/17/2025 [facility] Utilities Answer Date Recorded [...] of the initial request. Best contact number: [phone] (mobile) Optimal time of day to reach [...] will receive notification of the communication/outcome via [employer]. * Telephone Encounter - Dulce Syed Meaghan - 05/23/2025 9:55 AM EST Clinical Concern/Question Reason for Call: Pt calling for results from yesterday apt. Best contact number: [phone] (mobile) Optimal time of day to reach [...] documented as of this encounter Care Teams Slide Developer Relationship Specialty Start Date End Date Estrellita Dietz MD [address] [place] [address] PCP - General 11/30/20 documented as of this encounter
--- OUTSIDE RECORDS SUMMARY | 2025-06-16 20:22 | XMS_ITS | Encounter Summary ---
Author Organization [facility] Address [address] [place] [address] Care Team Providers Care Reserve Operator Name Role Phone Estrellita Dietz MD Primary Care Provider [phone] Encounter Details Date Type Department Care Team (Late st Contact Info) Description 06/01/2025 Results Follow-Up Obstetrics & Gynecology [address] [place] [address] Nicolas Medina MD [address] [place] [address] Social History Tobacco Use Types [...] in the past 12 m [facility], were you homeless or living in a alf (including now)? No 05/17/2025 [facility] Utilities Answer Date Recorded In the [...] documented as of this encounter Care Teams Reserve Operator Relationship Specialty Start Date End Date Estrellita Dietz MD [address] [place] [address] PCP - General 11/30/20 documented as of this encounter
[2025-06-16 20:23] VITALS: BP 116/60; PULSE 89; RESP 18; TEMP 36.6
== END 2025-06-16 20:24 | disposition home or self-care (01) ==
LOC: ER 20:19
PROVIDERS: Emergency Provider Student in an Organized Health Care Education/Training Program; PCP Family Medicine
DX: O26.891 Other specified pregnancy related conditions, first trimester (principal); R21 Rash and other nonspecific skin eruption; Z3A.01 Less than 8 weeks gestation of pregnancy; Z79.899 Other long term (current) drug therapy; Z88.8 Allergy status to other drugs, medicaments and biological substances
CPT/HCPCS: 99283

== ENCOUNTER 2025-06-26 22:39 | Emergency (ER) | payer BC, OTHER, SELFPAY ==
--- OUTSIDE RECORDS SUMMARY | 2025-05-17 14:20 | XMS_ITS | Encounter Summary ---
Author Organization [facility] Address [address] [place] [address] Care Team Providers Care Lightning Rod Erector Name Role Phone Estrellita Dietz MD Primary Care Provider [phone] Reason for Visit * Reason Comments Follow-up Pt is here to determ ine if she is Encounter Details Date Type Department Care Team (Late st Contact Info) Description 05/17/2025 3:20 PM EDT Office Visit [facility] [address] [phone] Halle Waldrop MD [address] [place] [address] Missed period (Primary Dx); Positive [...] and Family Not on file 05/17/2025 Attends [employer] Services Not on file 05/17 Active Member [...] any time in the past 12 m [facility], were you homeless or living in a halfway (including now)? No 05/17/2025 [facility] Utilities Answer Date Recorded In the [...] 44.4(H) <5 mIU/mL 05/18/2025 1:07 PM EDT [facility] Blood Venous blood specimen / Unknown Venipuncture / Unknown 05/17/2025 3:43 PM EDT 05/17/2025 3:43 PM EDT Narrative [facility] - 05/18/2025 1:07 PM EDT [...] Waldrop MD LAB BLOOD ORDERABLES Final Result [facility] [address] [place] [address] * (ABNORMAL) Test Qualitative Plasma (05/17/2025 3:43 PM EDT) Test Positive(A ) Negative 05/17/2025 7:18 PM EDT [facility] Blood Venous blood specimen / Unknown Venipuncture / Unknown 05/17/2025 3:43 PM EDT 05/17/2025 3:43 PM EDT Narrative [facility] - 05/17/2025 7:18 PM EDT Positive, greater than 6 mIU/hCG mL. Halle Waldrop MD LAB BLOOD ORDERABLES Final Result Performing Organization Address City/[facility] Co de Phone Number [facility] [address] [place] [address] * POCT Urine (05/17/2025 3:27 PM EDT) [facility] Signature Urine - Point of Care [...] documented as of this encounter Care Teams Lightning Rod Erector Relationship Specialty Start Date End Date Estrellita Dietz MD [address] [place] [address] PCP - General 11/30/20 documented as of this encounter
--- OUTSIDE RECORDS SUMMARY | 2025-05-19 12:15 | XMS_ITS | Encounter Summary ---
Author Organization [facility] Address [address] [place] [address] Care Team Providers Care Weed Science Research Technician Name Role Phone Estrellita Dietz MD Primary Care Provider [phone] Encounter Details Date Type Department Care Team (Latest Contact Info) Description 05/19/2025 1:15 PM EDT Clinical Support [address] [phone] Positive test (Primary Dx) Social [...] and Family Not on file 05/17/2025 Attends Jehovah'S Witness Services Not on file 05/17 Active Member [...] any time in the past 12 m [facility], were you homeless or living in a [facility] (including now)? No 05/17/2025 [facility] Utilities Answer Date Recorded In the [...] Re sult [facility] [address] [place] [address] documented in this encounter Visit Diagnoses Diagnosis [...] documented as of this encounter Care Teams Weed Science Research Technician Relationship Specialty Start Date End Date Estrellita Dietz MD [address] [place] [address] PCP - General 11/30/20 documented as of this encounter
--- OUTSIDE RECORDS SUMMARY | 2025-05-22 15:00 | XMS_ITS | Encounter Summary ---
Author Organization [facility] Address [address] [place] [address] Care Team Providers Care Machine Assistant Name Role Phone Estrellita Dietz MD Primary Care Provider [phone] Reason for Referral * Imaging (Routine) - Closed Specialty Diagnoses / Procedures Referred By Contac t Referred To Contact Diagnoses Unsure of LMP (last menstrual period) as reason for ultrasound scan Procedures OB US Transvaginal Nicolas Medina MD [address] [place] [address] Phone: tel: fax: EXT External Clinic [address] [place] [phone] Referral ID Status Reason Start Date Expiration Date Visits Re quested Visits Authorized [id number] Closed 05/22/2025 11/21/2026 1 1 Encounter Details Date Type Department Care Team (Late st Contact Info) Description 05/22/2025 3:00 PM EST Initial Obstetrics & Gynecology [address] [place] [address] Nicolas Medina MD [address] [place] [address] [place]: [id number] Social History Tobacco [...] and Family Not on file 05/17/2025 Attends [employer] Not on file 05/17 Active Member [...] were you homeless or living in a senior care (including now)? No 05/17/2025 [facility] Utilities Answer Date Recorded In the past 12 months has [employer], gas, oil, or water company threatened to [...] Questionnaire-2 Score 0 09/2024 3:13 PM Maryanne Myao * Question Answer Date of Assessment Author [...] Reactive Non Reactive 05/22/2025 7:28 PM EST [facility] Comment:Screening for HIV 1 & 2 antibodies, and P24 antigen is NONREACTIVE. No confirmatory testing is required. Blood Venous blood specimen / Unknown Venipuncture / Unknown 05/22/2025 3:52 PM EST 05/22/2025 6:48 PM EST us Nicolas Medina MD LAB BLOOD ORDERABLES Final Resu lt Performing Organization Address City/[facility]/ZIP Co de Phone Number [facility] [address] [place] [address] * Urine Culture (05/22/2025 3:52 PM EST) Pathologist [facility] Culture <10,000 CFU/mL Mixed urogenital, fecal, or skin sophia present. 05/24/2025 9:27 AM EST [facility] Urine Urine specimen obtained by clean catch procedure / Unknown Non-blood Collection / Unknown 05/22/2025 3:52 PM EST 05/22/2025 6:47 PM EST us Nicolas Medina MD LAB [facility]BIOLOGY - [facility]AL [facility] Final Result [facility] [address] [place] [address] * Type and Screen (05/22/2025 3:52 PM [...] TEST ORDERABLES Final Result Performing Organization Address [facility] Phone Number BLOOD BANK [address] * Treponema Pallidum (Syphilis) Antibodies with Reflex to RPR and RPR Titer (Those with NO known Syphilis) (05/22/2025 3:52 PM EST) Syphilis Antibody (IgG+IgM) Nonreactive Nonreactive 05/22/2025 8:35 PM EST [facility] Comment:Nonreactive. No sero logic evidence of syphilis. No follow-up necessary unless clinically indicated (e.g., early syphilis). Blood Venous blood specimen / Unknown Venipuncture / Unknown 05/22/2025 3:52 PM EST 05/22/2025 6:48 PM EST us Nicolas Medina MD LAB BLOOD ORDERABLES Final Resu lt Performing Organization Address [facility] Co de Phone Number [facility] [address] [place] [address] * Rubella Antibody IgG (05/22/2025 3:52 PM EST) Rubella Antibody IgG Negative Negative 05/22/2025 9:27 PM EST [facility] Comment: Rubella IgG Result Interpretation: [...] ORDERABLES Final Resu lt Performing Organization Address City/[facility]/ZIP Co de Phone Number [facility] [address] [place] [address] * Neisseria gonorrhea DNA by PCR (05/22/2025 3:52 PM EST) Neisseria gonorrhea DNA PCR Result Not Detected Not Detected. 05/23/2025 2:37 PM EST [facility] Urine Urine specimen obtained by clean catch procedure / Unknown Non-blood Collection / Unknown 05/22/2025 3:52 PM EST 05/22/2025 6:47 PM EST Narrative [facility] - 05/23/2025 2:37 PM EST This test is performed by the Amulyte instrument for Real Time PCR C. trachomatis and N. gonorrhea. This test is FDA approved for use with endocervical, vaginal, and urine specimens. This test is used for clinical purposes. It should not be regarded as invesigational or for research. The [facility] Clinical Microbiology Laboratory is certified under the Clinical Laboratory Improvement Amendments of 1988 (CLIA-88) as qualified to perform high complexity clinical laboratory testing. Result Claudia Medina MD LAB MICROBIOLOGY - GENERAL ORDE [facility] Final Result Performing Organization Address [facility] [place] [address] * Hepatitis C Antibody w/Reflex to HCV Quant PCR (05/22/2025 3:52 PM EST) Hepatitis C Antibody Negative Negative 05/22/2025 7:29 PM EST [facility] Blood Venous blood specimen / Unknown Venipuncture / Unknown 05/22/2025 3:52 PM EST 05/22/2025 6:48 PM EST Result Claudia Medina MD LAB BLOOD ORDERABLES Final Resu lt Performing Organization Address City/[facility]/ZIP Co de Phone Number [facility] [address] [place] [address] * Hepatitis B Surface Antigen (05/22/2025 3:52 PM EST) Pathologist [facility] Hepatitis B Surf Antigen Negative Negative 05/22/2025 8:35 PM EST [facility] Blood Venous blood specimen / Unknown Venipuncture / Unknown 05/22/2025 3:52 PM EST 05/22/2025 6:48 PM EST us Nicolas Medina MD LAB BLOOD ORDERABLES Final Resu lt Performing Organization Address [facility]/ZIP Co de Phone Number [facility] [address] [place] [address] * Chlamydia trachomatis DNA by PCR (05/22/2025 3:52 PM EST) [facility] Chlamydia trachomatis DNA PCR Result Not Detected Not Detected 05/23/2025 2:37 PM EST [facility] Urine Urine specimen obtained by clean catch procedure / Unknown Non-blood Collection / Unknown 05/22/2025 3:52 PM EST 05/22/2025 6:47 PM EST Narrative [facility] - 05/23/2025 2:37 PM EST This test is performed by the Exo m2000 instrument for Real Time PCR C. trachomatis and N. gonorrhea. This test is FDA approved for use with endocervical, vaginal, and urine specimens. This test is used for clinical purposes. It should not be regarded as invesigational or for research. The [facility] Clinical Microbiology Laboratory is certified under the Clinical Laboratory Improvement Amendments of 1988 (CLIA-88) as qualified to perform high complexity clinical laboratory testing. us Nicolas Medina MD LAB MICROBIOLOGY - [facility]AL [facility] Final Result Performing Organization Address City/[facility]/ZIP Co de Phone Number [facility] [address] [place] [address] * CBC W/O Differential (05/22/2025 3:52 PM EST) [facility] WBC Count 8.24 3.70 - 10.30 10*3/uL LAB HEMATOLOGY METHOD 05/22/2025 7:07 PM EST [facility] RBC Count 4.96 3.90 - 5.20 10*6/uL LAB HEMATOLOGY METHOD 05/22/2025 7:07 PM EST [facility] HGB 14.0 11.2 - 15.7 g/dL LAB HEMATOLOGY METHOD 05/22/2025 7:07 PM EST [facility] HCT 41.6 34.0 - 45.0 % LAB HEMATOLOGY METHOD 05/22/2025 7:07 PM EST [facility] Platelet Count 318 155 - 369 10*3/uL LAB HEMATOLOGY METHOD 05/22/2025 7:07 PM EST [facility] MCV 84 79 - 98 fL LAB HEMATOLOGY METHOD 05/22/2025 7:07 PM EST [facility] MCH 28.2 26.0 - 32.0 pg LAB HEMATOLOGY METHOD 05/22/2025 7:07 PM EST [facility] MCHC 33.7 30.7 - 35.5 g/dL LAB HEMATOLOGY METHOD 05/22/2025 7:07 PM EST [facility] RDW 12.9 11.5 - 14.5 % LAB HEMATOLOGY METHOD 05/22/2025 7:07 PM EST [facility] MPV 11.0 8.8 - 12.5 fL LAB HEMATOLOGY METHOD 05/22/2025 7:07 PM EST [facility] nRBC 0.0 <=0.0 per 100 WBCs LAB HEMATOLOGY METHOD 05/22/2025 7:07 PM EST [facility] Blood Venous blood specimen / Unknown Venipuncture / Unknown 05/22/2025 3:52 PM EST 05/22/2025 6:48 PM EST us Nicolas Medina MD LAB BLOOD ORDERABLES Final Resu lt [facility] [address] [place] [address] * Progesterone (05/22/2025 3:52 PM EST) Progesterone III 11.9 Reference Range not established ng/mL 05/22/2025 8:11 PM EST [facility] Blood Venous blood specimen / Unknown Venipuncture / Unknown 05/22/2025 3:52 PM EST 05/22/2025 7:43 PM EST Narrative [facility] - 05/22/2025 8:11 PM EST Menstrual Cycle Phase Reference Intervals: Females, 18 Y and up (ng/mL) Follicular <= 0.33 Ovulation <= 2.35 Luteal 0.5-21 Post-Menopausal <0.2 reference Intervals (ng/mL): 1st Trimester 11 - 45 2nd Trimester 25 - 84 3rd Trimester 58 - 214 us Nicolas Medina MD LAB BLOOD ORDERABLES Final Resu lt Performing Organization Address [facility] Co de Phone Number [facility] [address] [place] [address] * (ABNORMAL) hCG, Total Beta, Quantitative, Plasma (05/22/2025 3:52 PM EST) hCG, Total Beta 412(H) <5 mIU/mL 05/22/2025 7:29 PM EST [facility] Blood Venous blood specimen / Unknown Venipuncture / Unknown 05/22/2025 3:52 PM EST 05/22/2025 6:48 PM EST Narrative [facility] - 05/22/2025 7:29 PM EST Patients: [...] ORDERABLES Final Resu lt Performing Organization Address [facility] Co de Phone Number [facility] [address] [place] [address] * OB US Transvaginal (05/22/2025 3:29 PM EST) Anatomical Region Laterality Modality Pelvis Ultrasound 05/22/2025 3:32 PM EST Impressions 05/22/2025 3:41 PM EST The OB Ultrasound you requested has been resulted. Please navigate to the Imaging tab in [employer] for review. This message has been generated by the interface. Narrative Procedure Note Nicolas Medina MD - 05/22/2025 IMPRESSION: The OB Ultrasound you requested has been resulted. Please navigate to theImaging tab in [employer] for review. This message has been generated by [email or web address]. us Nicolas Medina MD IMG OB US [...] documented as of this encounter Care Teams Machine Assistant Relationship Specialty Start Date End Date Estrellita Dietz MD [address] [place] [address] PCP - General 11/30/20 documented as of this encounter
--- OUTSIDE RECORDS SUMMARY | 2025-05-22 15:30 | XMS_ITS | Encounter Summary ---
Author Organization [facility] Address [address] [place] [address] Care Team Providers Care Insurance Underwriting Assistant Name Role Phone Estrellita Dietz MD Primary Care Provider [phone] Reason for Visit * Imaging (Routine) - Closed Specialty Diagnoses / Procedures Referred By Lara rogers Referred To Contact Diagnoses Unsure of LMP (last menstrual period) as reason for ultrasound scan Procedures OB US Transvaginal Nicolas Medina MD [address] [place] [address] Phone: tel: fax: EXT External Clinic [address] [place] [phone] Referral ID Status Reason Start Date Expiration Date Visits Re quested Visits Authorized [id number] Closed 05/22/2025 11/21/2026 1 1 Encounter Details Date Type Department Care Team (Latest Contact Info) Description 05/22/2025 3:30 PM EST Ancillary Procedure Obstetrics & Gynecology [address] [place] [address] Unsure of LMP (last menstrual [...] and Family Not on file 05/17/2025 Attends [employer] Services Not on file 05/17 Active Member [...] any time in the past 12 m [facility], were you homeless or living in a senior care (including now)? No 05/17/2025 [facility] Utilities Answer Date Recorded In the [...] Please navigate to the Imaging tab in Hast[employer] for review. This message has been generated by the interface. Narrative Procedure Note Nicolas Medina MD - 05/22/2025 IMPRESSION: The OB Ultrasound you requested has been resulted. Please navigate to theImaging tab in Hastify for review. This message has been generated by [facility]. us Nicolas Medina MD IMG OB [...] documented as of this encounter Care Teams Insurance Underwriting Assistant Relationship Specialty Start Date End Date Estrellita Dietz MD [address] [place] [address] PCP - General 11/30/20 documented as of this encounter
--- OUTSIDE RECORDS SUMMARY | 2025-05-24 11:00 | XMS_ITS | Encounter Summary ---
Author Organization [facility] Address [address] [place] [address] Care Team Providers Care Ccie Name Role Phone Estrellita Dietz MD Primary Care Provider [phone] Reason for Visit * Reason Comments Labs Here for labs. Encounter Details Date Type Department Care Team (Latest Contact Info) Description 05/24/2025 11:00 AM EST Clinical Support Obstetrics & Gynecology [address] [place] [address] test positive (Primary Dx) Social History Tobacco Use Types [...] and Family Not on file 05/17/2025 Attends [employer] Services Not on file 05/17 Active Member [...] any time in the past 12 m [facility], were you homeless or living in a fdc (including now)? No 05/17/2025 [facility] Utilities [...] AM EDT documented as of this encounter Plan of Treatment Not on file documented as of this encounter Procedures Procedure Name Priority Date/Time Associated Diagnosis Comments HCG, QUANTITATIVE Routine 05/24/2025 10: 42 AM EST test positive documented in this encounter Results * (ABNORMAL) hCG, Total Beta, Quantitative, Plasma (05/24/2025 10:42 AM EST) hCG, Total Beta 842(H) <5 mIU/mL 05/24/2025 2:35 PM EST [facility] Blood Venous blood specimen / Unknown Venipuncture / Unknown 05/24/2025 10:42 AM EST 05/24/2025 2:04 PM EST Narrative [facility] - 05/24/2025 2:35 PM EST Patients: Normal Range Premenopausal Female [...] MD LAB BLOOD ORDERABLES Final Resu lt [facility] [address] [place] [address] documented in this encounter Visit Diagnoses Diagnosis test positive- Primary examination or test, positive result documented in this encounter Additional Health Concerns Assessment Noted Time PHQ-9 Depression Total Score: 0 05/22/20 25 3:13 PM EST A fall risk assessment has been complete d for the patient 05/22/2025 3:13 PM EST A Body Mass Index follow-up plan has been documented for the patient 05/24/2025 10:49 AM EST documented as of this encounter Care Teams Ccie Relationship Specialty Start Date End Date Estrellita Dietz MD [address] [place] [phone] PCP - General 11/30/20 documented as of this encounter
--- OUTSIDE RECORDS SUMMARY | 2025-05-31 15:15 | XMS_ITS | Encounter Summary ---
Author Organization Healthcare Address [address] [place] [address] Care Team Providers Care Material Preparation Worker Name Role Phone Estrellita Dietz MD Primary Care Provider [phone] Reason for Visit * Reason Comments Labs Here for labs. Encounter Details Date Type Department Care Team (Latest Contact Info) Description 05/31/2025 3:15 PM EST Clinical Support Obstetrics & Gynecology [address] [place] [address] , unspecified gestational age (Primary [...] and Family Not on file 05/17/2025 Attends Zoroastrianism Services Not on file 05/17 Active Member [...] any time in the past 12 m [facility], were you homeless or living in a senior care (including now)? No 05/17/2025 [facility] Utilities Answer Date Recorded In the past [...] 7,199(H) <5 mIU/mL 05/31/2025 7:26 PM EST [facility] Blood Venous blood specimen / Unknown Venipuncture / Unknown 05/31/2025 2:51 PM EST 05/31/2025 6:43 PM EST Narrative [facility] - 05/31/2025 7:26 PM EST Patients: [...] ORDERABLES Final Resu lt Performing Organization Address [facility] de Phone Number [facility] [address] [place] [address] * Progesterone (05/31/2025 2:39 PM EST) Progesterone III 15.4 Reference Range not established ng/mL 05/31/2025 7:24 PM EST [facility] Blood Venous blood specimen / Unknown Venipuncture / Unknown 05/31/2025 2:39 PM EST 05/31/2025 6:44 PM EST Narrative [facility] - 05/31/2025 7:24 PM EST Menstrual Cycle Phase Reference Intervals: Females, 18 Y and up (ng/mL) Follicular <= 0.33 Ovulation <= 2.35 Luteal 0.5-21 Post-Menopausal <0.2 reference Intervals (ng/mL): 1st Trimester 11 - 45 2nd Trimester 25 - 84 3rd Trimester 58 - 214 us Nicolas Medina MD LAB BLOOD ORDERABLES Final Resu lt Performing Organization Address [facility] Co de Phone Number [facility] [address] [place] [address] documented in this encounter Visit Diagnoses Diagnosis [...] documented as of this encounter Care Teams Material Preparation Worker Relationship Specialty Start Date End Date Estrellita Dietz MD [address] [place] [address] PCP - General 11/30/20 documented as of this encounter
--- OUTSIDE RECORDS SUMMARY | 2025-06-21 10:20 | XMS_ITS | Encounter Summary ---
Author Organization [facility] Address [address] [place] [address] Care Team Providers Care Cad Librarian Name Role Phone Estrellita Dietz MD Primary Care Provider [phone] Reason for Visit * Reason Comments HCN Paperwork/Documentation Request New employment Eczema Encounter Details Date Type Department Care Team (Late st Contact Info) Description 06/21/2025 10:20 AM EST Office Visit [facility] [address] [place] [address] Estrellita Dietz MD [address] [place] [address] Routine general medical examination at a health care facility (Primary Dx); Eczema, unspecified type Social History Tobacco Use Types Packs/Day Years Used Date Smoking Tobacco: Never Passive Smoke Exposure: Never Smokeless Tobacco: Never Tobacco Cessation:Counseling Given: Not Answered Comments:vapes Alcohol Use Standard Drinks/Week Comments Not Currently 0 (1 standard drink = 0.6 oz pur e alcohol) occ PHQ-2 Answer Date Recorded Patient Health Questionnaire-2 Score 0 06/21/2025 PHQ-9 Answer Date Recorded Patient Health Questionnaire-9 Score 0 06/21/2025 Humiliation, Afraid, Rape, and Kick questionnair e [...] and Family Not on file 05/17/2025 Attends [employer] Not on file 05/17 Active Member [...] any time in the past 12 m [facility], were you homeless or living in a longterm (including now)? No 05/17/2025 [facility] Utilities Answer Date Recorded In the past 12 months has th e electric, gas, oil, or water [employer] threatened to shut off services in your [...] Sign Reading Time Taken Comments Blood Pressure 100/72 06/21/2025 10:14 AM EST Pulse 83 06/21/2025 10:14 AM EST Temperature 37 C (98.6 F) 06/21/2025 10:14 AM EST Respiratory Rate 14 06/21/2025 10:14 AM EST Oxygen Saturation 90% 06/21/2025 10:14 AM EST Inhaled Oxygen Concentration - - Weight 61.3 kg (135 lb 2.3 oz) 06/21/2025 10:14 AM EST Height 157.5 cm (5' 2 ) 06/21/2025 10:14 AM EST Body Mass Index 24.72 06/21/2025 10:14 AM EST documented in this encounter Functional Status * Over the past 2 weeks, how often have you been bothered by any of the following problems? Question Answer Date of Assessment Author Little interest or pleasure in doing things Not at all 06/21/2025 10:14 AM EST Serenity Lizarraga Feeling down, depressed, or hopeless Not at all 09/2024 10:14 AM EST Serenity Lizarraga Patient Health Questionnaire-2 Score 0 09/2024 10:14 AM Serenity Rojas * Question Answer Date of Assessment Author Trouble falling or staying a sleep, or sleeping too much Not at all 06/21/2025 10:14 AM Serenity Rojas Feeling tired or having little energy Not at all 09/2024 10:14 AM Serenity Rojas Poor appetite or overeating Not at all 06/21/2025 10 :14 AM Serenity Rojas Feeling bad about yourself - or that you are a failure or have let yourself or your family down Not at all 06/21/2025 10:14 AM Serenity Rojas Trouble concentrating on thi ngs, such as reading the newspaper or watching television Not at all 06/21/2025 10:14 AM Serenity Rojas Moving or speaking so slowly that other people could have noticed. Or the opposite - being so fidgety or restless that you have been moving around a lot more than usual Not at all 06/21/2025 10:14 AM Meaghan Rojas Thoughts that you would be b cory off or hurting yourself in some way Not at all 06/21/2025 10:14 AM Sereniyt Rojas Patient Health Questionnaire-9 Score 0 09/2024 10:14 AM Serenity Rojas * Calculated C-SSRS Risk Score (Lifetime/Recent) Answer Date of Assessment Author No Risk Indicated 06/21/2025 10:15 AM Serenity Rojas * How difficult have these problems made it for you to do your work, take care of things at home, or get along with other people? Answer Date of Assessment Author Not difficult at all 06/21/2025 10:14 AM Serenity Polanco * Question Answer Date of Assessment Author 1. Wish to be (Past 1 Month) No 025 10:15 AM Serenity Rojas 2. Non-Specific Active Suici shon Thoughts (Past 1 Month) No 06/21/2025 10:15 AM Serenity Rojas 6. Suicidal Behavior (Lifetime) No 10:15 AM Serenity Rojas documented as of this encounter Miscellaneous Notes * Progress Notes - Estrellita Dietz MD - 06/21/2025 10:20 AM EST Office Progress Note Subjective Spencer Mojica is a 24 y.o. female who presents for N Paperwork/Documentation Request (Newemployment) and Eczema. History of Present Illness The patient presents for evaluation of , recurrent strep throat, and eczema. She is currently in her first trimester of , approximately 8 weeks along. She has recentlytransitioned to a new furnace cleaner due to discomfort with her previous provider. Her most recent visit revealed that the fetus is developing slightly ahead of schedule, with a larger than average head size. She reports experiencing fatigue, which she attributes to her first trimester, and shortnessof breath during physical activity. She has informed her employer of her due to her inability to lift heavy objects, a task required by her job. She is currently residing in a camper and plans to relocate in either September or October 2025. She is on progesterone and vitamins. She has a history of recurrent strep throat, with 8 to 9 episodes occurring within a 4 to 5 month period last year. She is considering tonsillectomy as a potential treatment option. She has had her adenoids removed in the past She has developed a spot on her breast, which was diagnosed as eczema by the emergency room. She was advised to monitor the condition and was prescribed a steroid ointment for treatment. She is not sure if she can take this cream due to her Social History: Occupation: Works in the school system Sleep: Reports fatigue and the need for naps Living Condition: Currently residing in a camper, plans to relocate in September or October 2025 The following sections have been reviewed and updated during this encounter: Tobacco Allergies Meds Problems Med Hx Surg Hx Fam Hx Objective Blood pressure 100/72, pulse 83, temperature 37 ??C (98.6 ??F), resp. rate 14, height 1.575 m (5' 2 ), weight 61.3 kg (135 lb 2.3 oz), last menstrual period 04/16/2025, SpO2 90%. Body mass index is 24.72 kg/m??. Physical Exam Constitutional: General: She is not in acute distress. Appearance: She is well-developed. HENT: Head: Normocephalic and atraumatic. Right Ear: Tympanic membrane and external ear normal. Left Ear: Tympanic membrane and external ear normal. Nose: Nose normal. No congestion. Mouth/Throat: Mouth: Mucous membranes are moist. Pharynx: Oropharynx is clear. Eyes: Extraocular Movements: Extraocular movements intact. Conjunctiva/sclera: Conjunctivae normal. Pupils: Pupils are equal, round, and reactive to light. Neck: Thyroid: No thyromegaly. Cardiovascular: Rate and Rhythm: Normal rate and regular rhythm. Pulses: Normal pulses. Pulmonary: Effort: Pulmonary effort is normal. Breath sounds: Normal breath sounds. Abdominal: General: Bowel sounds are normal. There is no distension. Palpations: Abdomen is soft. There is no mass. Tenderness: There is no abdominal tenderness. Musculoskeletal: General: Normal range of motion. Cervical back: Normal range of motion and neck supple. Right lower leg: No edema. Left lower leg: No edema. Lymphadenopathy: Cervical: No cervical adenopathy. Skin: General: Skin is warm and dry. Findings: Rash (Scaly erythematous rash on left breast just below the nipple) present. Neurological: General: No focal deficit present. Mental Status: She is alert and oriented to person, place, and time. Motor: Motor function is intact. Gait: Gait is intact. Deep Tendon Reflexes: Reflexes are normal and symmetric. Psychiatric: Mood and Affect: Mood normal. Behavior: Behavior normal. Assessment/Plan Diagnoses and all orders for this visit: Routine general medical examination at a health care facility Eczema, unspecified type Assessment & Plan : - Currently 8 weeks and switched to a new OB due to discomfort with the previous provider. - New OB confirmed is progressing well, baby measuring a day ahead of schedule. - Experiencing significant fatigue and shortness of breath, common in the first trimester. - No TB screening necessary as no exposure to high-risk groups. - Taking progesterone and vitamins. - Advised to continue current medications and follow up with OB as needed. - Work physical form filled out as a courtesy Recurrent strep throat: - Reported having strep throat 8 to 9 times within a 4 to 5-month period last year. - Advised to have a throat swab done to confirm strep throat if symptoms occur again. - Tonsillectomy to be considered after . Eczema: - Developed a spot on breast that was oozing. - Condition likely hormonal and related to . - Advised to use steroid ointment sparingly, only when eczema becomes severe. - No treatment necessary if area is just red and not bothersome. Verbal consent was obtained to use ambient listening technology to assist in the documentation of the encounter: yes documented in this encounter Plan of Treatment Not on file documented as of this encounter Visit Diagnoses Diagnosis Routine general medical examination at a health care facility- Primary Eczema, unspecified type documented in this encounter Additional Health Concerns Assessment Noted Time PHQ-9 Depression Total Score: 0 06/21/20 25 10:14 AM EST A fall risk assessment has been complete d for the patient 05/22/2025 3:13 PM EST A Body Mass Index follow-up plan has been documented for the patient 06/21/2025 11:53 AM EST documented as of this encounter Care Teams Cad Librarian Relationship Specialty Start Date End Date Estrellita Dietz MD [address] [place] [address] PCP - General 11/30/20 documented as of this encounter
[2025-06-26 22:56] VITALS: BP 104/43; PULSE 72; RESP 18; TEMP 36.4; O2SAT 100; BMI 24.1
--- OUTSIDE RECORDS SUMMARY | 2025-06-26 23:03 | XMS_ITS | Encounter Summary ---
Author Organization [facility] Address [address] [place] [address] Care Team Providers Care Experimental Worker Name Role Phone Estrellita Dietz MD Primary Care Provider [phone] Encounter Details Date Type Department Care Team (Late st Contact Info) Description 04/25/2024 Outside Procedure External Location [address] [place] [address] Provider, Priyank [place] Social History Tobacco Use Types Packs/Day Years [...] place to sleep or slept in a jail (including now)? No 04/15/2024 Safety and Environment [...] PM EDT Narrative 04/25/2024 5:57 [place] [address] Name: WILDER MOJICA Exam Date: 04/25/2024 : 2000 Age 23 years Gender: F Physician: ROCIO HASSAN Facility: [facility] Facility HSV: Outpatient Exam: HAND LT 3V LEFT HAND COMPLETE HISTORY:Left hand pain. COMPARISON:None VIEWS:Minimum of 3 views. FINDINGS: No fracture or malalignment.No significant degenerative changes. IMPRESSION: No acute findings. Electronically signed by:Delroy Russell MD04/25/2024 05:55 PM EDT RP Dictated By: Delroy Russell Transcribed By: Transcribed On: 04/25/2024 5:51 PM Electronically signed by: Delroy Russell 04/25/2024 Thank you for referring WILDER MOJICA to [facility]. Legally authenticated by ALYCE HAN 2024-04-25 17:51:15 Procedure Note Provider, [facility] - 04/25/2024 [place] [address] Name: WILDER MOJICA Exam Date: 04/25/2024 : 2000 Age 23 years Gender: F Physician: ROCIO HASSAN Facility: [facility] Facility HSV: Outpatient Exam: HAND LT 3V LEFT HAND COMPLETE HISTORY:Left hand pain. COMPARISON:None VIEWS:Minimum of 3 views. FINDINGS: No fracture or malalignment.No significant degenerative changes. IMPRESSION: No acute findings. Electronically signed by:Delroy Russell MD04/25/2024 05:55 PM EDT RP Dictated By: Delroy Russell Transcribed By: Transcribed On: 04/25/2024 5:51 PM Electronically signed by: Delroy Russell 04/25/2024 Thank you for referring WILDER MOJICA to [facility]. Legally authenticated by ALYCE HAN 2024-04-25 17:51:15 Generic [place] Provider IMG XR PROCEDURES Fi nal Result documented in this encounter Visit Diagnoses Not on filedocumented in this encounter Additional Health Concerns Assessment Noted Time A fall risk assessment has been complete d for the patient 03/30/2024 3:05 PM EDT A Body Mass Index follow-up plan has been documented for the patient 04/15/2024 1:55 PM EDT documented as of this encounter Care Teams Experimental Worker Relationship Specialty Start Date End Date Estrellita Dietz MD [address] [place] [id number] PCP - General 11/30/20 documented as of this encounter
--- OUTSIDE RECORDS SUMMARY | 2025-06-26 23:03 | XMS_ITS | Encounter Summary ---
Author Organization [facility] Address [address] [place] [address] Care Team Providers Care Coroner Name Role Phone Estrellita Dietz MD Primary Care Provider [phone] Reason for Visit * Reason Comments Med Change Request Encounter Details Date Type Department Care Team (Late st Contact Info) Description 07/19/2024 [facility] [address] [place] [address] Estrellita Dietz MD [address] [place] [address] Anxiety Social History Tobacco Use [...] place to sleep or slept in a [place] (including now)? No 04/15/2024 PHQ-9 Answer Date [...] documented as of this encounter Care Teams Coroner Relationship Specialty Start Date End Date Estrellita Dietz MD [address] [address] PCP - General 11/30/20 documented as of this encounter
--- OUTSIDE RECORDS SUMMARY | 2025-06-26 23:03 | XMS_ITS | Encounter Summary ---
Author Organization [facility] Address [address] [place] [address] Care Team Providers Care Visor Installer Name Role Phone Estrellita Dietz MD Primary Care Provider [phone] Encounter Details Date Type Department Care Team (Late st Contact Info) Description 08/28/2024 Outside Procedure External Location [address] [place] [address] Provider, Priyank [place] Social History Tobacco Use Types Packs/Day Years [...] place to sleep or slept in a halfway (including now)? No 04/15/2024 PHQ-9 Answer Date [...] living in a halfway (including now)? No 08/22/2024 Safety and Environment [...] PM EST Narrative 08/29/2024 1:06 [place] [address] Name: WILDER MOJICA Exam Date: 08/28/2024 : 2000 Age 23 years Gender: F Physician: ROCIO HASSAN Facility: [facility] Facility HSV: Outpatient Exam: CHEST PORTABLE [...] Thank you for referring WILDER MOJICA to [facility]. Legally authenticated by ALFRED GRIFFIN 2024-08-29 01:04:15 Procedure Note Provider, Priyank [place] - 08/29/2024 [facility] [address] [place] [address] Name: WILDER MOJICA Exam Date: 08/28/2024 : 2000 Age 23 years Gender: F Physician: ROCIO HASSAN Facility: [facility] Facility HSV: Outpatient Exam: CHEST PORTABLE [...] Thank you for referring WILDER MOJICA to [facility]. Legally authenticated by ALFRED GRIFFIN 2024-08-29 01:04:15 Generic [place] Provider IMG XR PROCEDURES Fi nal Result [...] documented as of this encounter Care Teams Visor Installer Relationship Specialty Start Date End Date Estrellita Dietz MD [address] [place] [address] PCP - General 11/30/20 documented as of this encounter
--- OUTSIDE RECORDS SUMMARY | 2025-06-26 23:03 | XMS_ITS | Encounter Summary ---
Author Organization [facility] Address [address] [place] [address] Care Team Providers Care Motorcoach Operator Name Role Phone Estrellita Dietz MD Primary Care Provider [phone] Encounter Details Date Type Department Care Team (Late st Contact Info) Description 09/19/2024 Outside Procedure External Location [address] [place] [address] Provider, Priyank [place] Social History Tobacco Use Types Packs/Day Years [...] place to sleep or slept in a mcfp (including now)? No 04/15/2024 PHQ-9 Answer Date [...] living in a mcfp (including now)? No 08/22/2024 Safety and Environment [...] PM EST Narrative 09/19/2024 9:37 [place] [address] Name: WILDER MOJICA Exam Date: 09/19/2024 : 2000 Age 23 years Gender: F Physician: [place]A [place] Facility: [facility] Facility HSV: Outpatient Exam: CT ABD [...] Thank you for referring WILDER MOJICA to [facility]. Legally authenticated by BROOKS REGAN 2024-09-19 21:33:54 Procedure Note Provider, [facility] 09/19/2024 [place] [address] Name: WILDER MOJICA Exam Date: 09/19/2024 : 2000 Age 23 years Gender: F Physician: S[place]A [place] Facility: [facility] Facility HSV: Outpatient Exam: CT ABD [...] Thank you for referring WILDER MOJICA to [facility]. Legally authenticated by BROOKS REGAN 2024-09-19 21:33:54 Generic [place] Provider IMG CT PROCEDURES Fi nal Result [...] documented as of this encounter Care Teams Motorcoach Operator Relationship Specialty Start Date End Date Estrellita Dietz MD [address] [place] [id number] PCP - General 11/30/20 documented as of this encounter
--- OUTSIDE RECORDS SUMMARY | 2025-06-26 23:03 | XMS_ITS | Encounter Summary ---
Author Organization [facility] Address [address] [place] [address] Care Team Providers Care Commis Chef Name Role Phone Estrellita Dietz MD Primary Care Provider [phone] Encounter Details Date Type Department Care Team (Latest Contact Info) Description 06/21/2025 Travel Social History Tobacco Use Types Packs/Day [...] any time in the past 12 m [facility], were you homeless or living in a snf (including now)? No 05/17/2025 [facility] Utilities Answer Date Recorded In the past [...] things Not at all 06/21/2025 10:14 AM Serenity Rojas Feeling down, depressed, or hopeless Not at all 09/2024 10:14 AM Serenity Rojas Patient Health Questionnaire-2 Score 0 09/2024 10:14 [...] Author No Risk Indicated 06/21/2025 10:15 AM EST Serenity Lizarraga * How difficult have these problems made it for you to do your work, take care of things at home, or get along with other people? Answer Date of Assessment Author Not difficult at all 06/21/2025 10:14 AM EST Serenity Kapadia * Question Answer Date of Assessment Author 1. Wish to be (Past 1 Month) No 025 10:15 AM EST Serenity Lizarraga 2. Non-Specific Active Suici shon Thoughts (Past 1 Month) No 06/21/2025 10:15 AM EST Elham Kaslitzy 6. Suicidal Behavior (Lifetime) No 10:15 AM EST Serenity Lizarraga documented as of this encounter Plan of [...] documented as of this encounter Care Teams Commis Chef Relationship Specialty Start Date End Date Estrellita Dietz MD [address] [phone] PCP - General 11/30/20 documented as of this encounter
--- OUTSIDE RECORDS SUMMARY | 2025-06-26 23:04 | XMS_ITS | Encounter Summary ---
Author Organization [facility] Address [address] [place] [address] Care Team Providers Care Streetcar Starter Name Role Phone Estrellita Dietz MD Primary Care Provider [phone] Encounter Details Date Type Department Care Team (Late st Contact Info) Description 05/24/2025 Results Follow-Up Obstetrics & Gynecology [address] [place] [address] Nicolas Medina MD [address] [place] [address] Social History Tobacco Use Types [...] a skilled nursing (including now)? No 05/17/2025 [facility] Utilities Answer Date Recorded In the [...] documented as of this encounter Care Teams Streetcar Starter Relationship Specialty Start Date End Date Estrellita Dietz MD [address] [place] [address] PCP - General 11/30/20 documented as of this encounter
--- OUTSIDE RECORDS SUMMARY | 2025-06-26 23:04 | XMS_ITS | Encounter Summary ---
Author Organization Healthcare Address [address] [place] [address] Care Team Providers Care Tractor Sweeper Operator Name Role Phone Estrellita Dietz MD Primary Care Provider [phone] Encounter Details Date Type Department Care Team (Late st Contact Info) Description 06/19/2022 Outside Procedure External Location [address] [place] [address] Bahman Kumar, CLIENT DEVELOPMENT MANAGER [address] [place] [address] Social History Tobacco Use Types [...] PM EST Narrative 06/20/2022 10:46 [place] [address] Name: WILDER MOJICA Exam Date: 06/19/2022 : 2000 Age 21 Gender: F Physician: BAHMAN KUMAR Facility: [facility] Facility HSV: Outpatient Exam: WRIST 3V LT [...] for referring WILDER MOJICA to [facility]. Legally authenticated by PASQUALE DURAND 2022-06-20 10:35:18 Procedure Note Provider, Priyank [place] - 06/20/[address] [address] Name: WILDER MOJICA Exam Date: 06/19/2022 : 2000 Age 21 Gender: F Physician: BAHMAN KUMAR Facility: [facility] Facility HSV: Outpatient Exam: WRIST 3V LT Left wrist 3 VIEW HISTORY: Pain. FINDINGS: No evidence of an acute, displaced fracture or dislocation ofthe visualized bony architecture. The joint spaces appear normal. IMPRESSION: No acute bony abnormality. Dictated By: Jonathon Hickey Transcribed By: Jonathon Villafana Transcribed On: 06/20/2022 10:35 AM Electronically signed by: Jonathon Hickey 06/20/2022 Thank you for referring WILDER MOJICA to [facility]. Legally authenticated by PASQUALE DURAND 2022-06-20 10:35:18 Bahman Kumar CLIENT DEVELOPMENT MANAGER IMG XR PROCEDURES Final R esult documented in this encounter Visit Diagnoses Not on filedocumented in this encounter Additional Health Concerns Assessment Noted Time A fall risk assessment has been complete d for the patient 06/19/2022 4:06 PM EST documented as of this encounter Care Teams Tractor Sweeper Operator Relationship Specialty Start Date End Date Estrellita Dietz MD [address] [place] [address] PCP - General 11/30/20 documented as of this encounter
--- OUTSIDE RECORDS SUMMARY | 2025-06-26 23:04 | XMS_ITS | Encounter Summary ---
Author Organization [facility] Address [address] [place] [address] Care Team Providers Care Mineralogy Professor Name Role Phone Estrellita Dietz MD Primary Care Provider Encounter Details Date Type Department Care Team (Late st Contact Info) Description 11/18/2024 Outside Procedure External Location [address] [place] [address] Provider, Priyank [place] Social History Tobacco Use Types Packs/Day Years [...] any time in the past 12 m [facility], were you homeless or living in a long-term (including now)? No 10/31/2024 Safety and Environment [...] AM EDT Narrative 11/18/2024 9:35 [place] [address] Name: WILDER VOGT Exam Date: 11/18/2024 : 2000 Age 23 years Gender: F Physician: SANTA NEGRETE Facility: [facility] Facility HSV: Outpatient Exam: OB EXAM [...] Thank you for referring WILDER VOGT to [facility]. Legally authenticated by MAIK CORMIER 2024-11-18 09:27:47 Procedure Note Provider, Priyank [place] - 11/18/2024 [facility] [address] [place] [address] Name: WILDER VOGT Exam Date: 11/18/2024 : 2000 Age 23 years Gender: F Physician: SANTA NEGRETE Facility: [facility] Facility HSV: Outpatient Exam: OB EXAM [...] Thank you for referring WILDER VOGT to [facility]. Legally authenticated by MAIK CORMIER 2024-11-18 09:27:47 us Generic [place] Provider IMG OB US PROCEDURES Final Result [...] documented as of this encounter Care Teams Mineralogy Professor Relationship Specialty Start Date End Date Estrellita Dietz MD [address] [place] [address] PCP - General 11/30/20 documented as of this encounter
--- OUTSIDE RECORDS SUMMARY | 2025-06-26 23:04 | XMS_ITS | Encounter Summary ---
Author Organization [facility] Address [address] [place] [address] Care Team Providers Care Water Taxi Captain Name Role Phone Estrellita Dietz MD Primary Care Provider [phone] Encounter Details Date Type Department Care Team (Late st Contact Info) Description 06/01/2025 Results Follow-Up Obstetrics & Gynecology [address] [place] [address] Nicolas Medina MD [address] [place] [address] Social History Tobacco Use Types [...] and Family Not on file 05/17/2025 Attends [employer] Not on file 05/17 Active Member [...] any time in the past 12 m [facility], were you homeless or living in a residential (including now)? No 05/17/2025 [facility] Utilities Answer Date Recorded In [...] documented as of this encounter Care Teams Water Taxi Captain Relationship Specialty Start Date End Date Estrellita Dietz MD [address] [place] [address] PCP - General 11/30/20 documented as of this encounter
--- OUTSIDE RECORDS SUMMARY | 2025-06-26 23:04 | XMS_ITS | Clinical Summary ---
Author Organization [facility] Address [address] [place], [place] [id number] Phone [email or web address] Care Team Providers Care Guide Domestic Tour Name Role Phone Unavailable Primary Care Provider [...]
--- OUTSIDE RECORDS SUMMARY | 2025-06-26 23:04 | XMS_ITS | Encounter Summary ---
Author Organization [facility] Address [address] [place] [address] Care Team Providers Care Grader Tender Name Role Phone Estrellita Dietz MD Primary Care Provider [phone] Encounter Details Date Type Department Care Team (Late st Contact Info) Description 05/24/2025 Telephone Obstetrics & Gynecology [address] [place] [address] Nicolas Medina MD [address] [place] [address] Social History Tobacco Use Types [...] in a jail (including now)? No 05/17/2025 [facility] Utilities Answer Date Recorded [...] usual Not at all 06/21/2025 10:14 AM EST Meaghan Lizarraga Thoughts that you would be b cory off or hurting yourself in some way Not at all 06/21/2025 10:14 AM EST Serenity Lizarraga Patient Health Questionnaire-9 Score 0 09/2024 10:14 AM EST Elham Kasha * Calculated C-SSRS Risk Score (Lifetime/Recent) Answer [...] 1 Month) No 025 10:15 AM EST Elham Kasha 2. Non-Specific Active Suici shon Thoughts (Past 1 Month) No 06/21/2025 10:15 AM EST Elham Kasha 6. Suicidal Behavior (Lifetime) No 10:15 AM EST Serenity Lizarraga documented as of this encounter Miscellaneous Notes * Telephone Encounter - Aylin Gardner - 05/24/2025 10:31 AM EST Called pt and made apt. Pt voiced understanding. * Telephone Encounter - Doris Naranjo - 05/24/2025 10:24 AM EST Clinical Concern/Question Reason for Call: Pt is calling to schedule an apt to test her HCG levels. Please call. Best contact number: [phone] (mobile) Optimal time of day to reach [...] documented as of this encounter Care Teams Grader Tender Relationship Specialty Start Date End Date Estrellita Dietz MD [address] [place] [address] PCP - General 11/30/20 documented as of this encounter
--- OUTSIDE RECORDS SUMMARY | 2025-06-26 23:04 | XMS_ITS | Encounter Summary ---
Author Organization [facility] Address [address] [place] [address] Care Team Providers Care Cattle Farmer Name Role Phone Estrellita Dietz MD Primary Care Provider [phone] Encounter Details Date Type Department Care Team [...] in a usp (including now)? No 05/17/2025 [facility] Utilities Answer Date Recorded In the [...] documented as of this encounter Care Teams Cattle Farmer Relationship Specialty Start Date End Date Estrellita Dietz MD [address] [place] [address] PCP - General 11/30/20 documented as of this encounter
--- OUTSIDE RECORDS SUMMARY | 2025-06-26 23:04 | XMS_ITS | Clinical Summary ---
Author Organization [facility] Address [address] [place] [address] Care Team Providers Care Program Coordinator For Residence Life Name Role Phone Estrellita Dietz MD Primary Care Provider [phone] Allergies Active Allergy Reactions Criticality Noted Date Comments Azithromycin Rash Low 12/08/2008 Medications MV & Min w/FA-DHA ( ADULT GUMMY/DHA/FA PO) Take by mouth. Active progesterone (Prometrium) 200 MG capsule Take 1 capsule by mouth nightly. 90 capsule 3 5 Active Hydrocortisone -Aloe Vera (hydrocortison e, 20-60g tube,) 1 % cream APPLY TOPICALLY TWICE A DAY NEEDED FOR RASH 5 Active meclizine (Antivert) 25 MG tabletIndicati ons:Vertigo Take 1 tablet by mouth 3 times a day as needed for dizziness. 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/14/2014 Estimated Date of Delivery Comme nts Yes 01/21/2026 Based on last me nstrual period of 04/16/2025 Resolved Problems Problem Noted Date Diagnosed Date Resolved Date Incomplete spontaneous 11/24/2024 06/21/2025 Missed 11/18/2024 06/21/2025 Chlamydia infection affectin g in first trimester 11/01/2024 06/21/2025 Less than 8 weeks gestation of 10/14/2024 11/18/2024 Anxiety 05/25/2024 06/21/2025 Current mild episode of ron r depressive disorder without prior episode 05/25/2024 Dysmenorrhea 07/23/2021 04/09/2025 ADHD, 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 06/21/2025 Encounters Date Type Department Care Team Description 06/21/2025 10:20 AM EST Office Visit [facility] [address] [place] [address] Estrellita Dietz MD Routine general medical examination at a health care facility (Primary Dx); Eczema, unspecified type 06/21/2025 Travel 06/01/2025 Results Follow-Up Obstetrics & Gynecology [address] [place] [address] Nicolas Medina MD 05/31/2025 3:15 PM EST Clinical Support Obstetrics & Gynecology [address] [place] [address] , unspecified gestational age (Primary Dx) 05/31/2025 Travel 05/31/2025 Telephone Obstetrics & Gynecology [address] [place] [address] Nicolas Medina MD 05/24/2025 11:00 AM EST Clinical Support Obstetrics & Gynecology [address] [place] [address] test positive (Primary Dx) 05/24/2025 Results Follow-Up Obstetrics & Gynecology [address] [place] [address] Nicolas Medina MD 05/24/2025 Travel 05/24/2025 Telephone Obstetrics & Gynecology [address] [place] [address] Nicolas Medina MD 05/23/2025 Results Follow-Up Obstetrics & Gynecology [address] [place] [address] Nicolas Medina MD 05/23/2025 Telephone Obstetrics & Gynecology [address] [place] [address] Nicolas Medina MD 05/22/2025 3:30 PM EST Ancillary Procedure Obstetrics & Gynecology [address] [place] [address] Unsure of LMP (last menstrual period) as reason for ultrasound scan 05/22/2025 3:00 PM EST Initial Obstetrics & Gynecology [address] [place] [address] Nicolas Medina MD GA: 5w1d 05/22/2025 Travel 05/22/2025 Results Follow-Up [facility] [address] [place] [address] Halle Waldrop MD 05/19/2025 1:15 PM EDT Clinical Support [facility] [address] [place] [address] Positive test (Primary Dx) 05/19/2025 Travel 05/18/2025 Travel 05/18/2025 Telephone Obstetrics & Gynecology [address] [place] [address] Nicolas Medina MD Appointment (05/18/25 scheduled appt per WorkQ- pt requested an appt to confirm and address concerns- pt does NOT want to see Dr Lopez or the clinic staff who assisted Dr Lopez when pt was at her last appt w/ Dr Lopez ZMT/) 05/18/2025 Results Follow-Up [facility] [address] [facility] [address] Petty, Jamviji 05/18/2025 Orders Only [facility] [address] [place] [address] Halle Waldrop MD Positive test (Primary Dx) 05/18/2025 Telephone [facility] [address] [facility] [address] Estrellita Dietz MD Results 05/17/2025 3:20 PM EDT Office Visit [facility] [address] [facility] [address] Halle aWldrop MD Missed period (Primary Dx); Positive test 05/17/2025 Travel 05/17/2025 Telephone [facility] [address] [place] [address] Estrellita Dietz MD [facility] Clinical Concern/Question 04/06/2025 3:00 PM EDT Office Visit [facility] [address] [place] [address] Kathleen Lizarraga APRN Vertigo (Primary Dx); [...] in a fdc (including now)? No 05/17/2025 [facility] Utilities Answer Date Recorded [...] Mass Index 24.72 06/21/2025 10:14 AM EST Plan of Treatment Health Maintenance Due Date [...] Screenings 11/15/2025 [facility]-Adult SDOH Screenings 11/15/2025 05/17/2025 [facility]-Infant/Child/Adol SDOH Screenings 11/15/2025 05/17/2025 [facility]-Chlamydia and Gonorrhea Screening 05/22/2026 05/22/2025, 05/22/2025, 10/28/2024, Additional history exists [facility]-Depression Screening 06/21/2026 06/21/2025, 1209/2024 [facility]-Pap Smear 03/18/2027 [facility]-Zoster Vaccines (1 of 2) 2052 01/18/2014, 12/19/2003 [facility]-Hepatitis B Vaccines Completed 004, 05/02/2003, 02/17/2003 [facility]-HIB Vaccines Completed 12/09/2006, , 05/02/2003, Additional history exists [facility]-IPV Vaccines Completed 12/09/2006, 07/2003, 05/02/2003, Additional history exists [facility]-Varicella Vaccines Completed 01/18/2014, 2003 HPV Vaccines Completed 01/30/2016, 09/18, 01/18/2014 [facility]-Hepatitis A Vaccines Completed 05/19/2018, 10/18 FLT-TVAMV-60 Vaccine Discontinued 08/30/2021, 07/21/19 22 [facility]-HIV Screening Completed 05/22/2025, , 11/14/2022 [facility]-Hepatitis [...] 7,199(H) <5 mIU/mL 05/31/2025 7:26 PM EST [facility] Blood Venous blood specimen / Unknown Venipuncture / Unknown 05/31/2025 2:51 PM EST 05/31/2025 6:43 PM EST Narrative [facility] - 05/31/2025 7:26 PM EST [...] MD LAB BLOOD ORDERABLES Final Resu lt [facility] [address] [place] [address] * Progesterone (05/31/2025 2:39 PM EST) Only the most recent of2 resultswithin the time period is included. [facility] Progesterone III 15.4 Reference Range not established ng/mL 05/31/2025 7:24 PM EST [facility] Blood Venous blood specimen / Unknown Venipuncture / Unknown 05/31/2025 2:39 PM EST 05/31/2025 6:44 PM EST Narrative [facility] - 05/31/2025 7:24 PM EST Menstrual Cycle Phase Reference Intervals: Females, 18 Y and up (ng/mL) Follicular <= 0.33 Ovulation <= 2.35 Luteal 0.5-21 Post-Menopausal <0.2 reference Intervals (ng/mL): 1st Trimester 11 - 45 2nd Trimester 25 - 84 3rd Trimester 58 - 214 us Nicolas Medina MD LAB BLOOD ORDERABLES Final Resu lt Performing Organization Address City/[facility]/ZIP Co de Phone Number [facility] [address] [place] [address] * Treponema Pallidum (Syphilis) Antibodies with Reflex to RPR and RPR Titer (Those with NO known Syphilis) (05/22/2025 3:52 PM EST) [facility] Syphilis Antibody (IgG+IgM) Nonreactive Nonreactive 05/22/2025 8:35 PM EST [facility] Comment:Nonreactive. No sero logic evidence of syphilis. No follow-up necessary unless clinically indicated (e.g., early syphilis). Blood Venous blood specimen / Unknown Venipuncture / Unknown 05/22/2025 3:52 PM EST 05/22/2025 6:48 PM EST Result Claudia Medina MD LAB BLOOD ORDERABLES Final Resu lt [facility] [address] [place] [address] * Chlamydia trachomatis DNA by PCR (05/22/2025 3:52 PM EST) [facility] Chlamydia trachomatis DNA PCR Result Not Detected Not Detected 05/23/2025 2:37 PM EST [facility] Urine Urine specimen obtained by clean catch procedure / Unknown Non-blood Collection / Unknown 05/22/2025 3:52 PM EST 05/22/2025 6:47 PM EST Narrative [facility] - 05/23/2025 2:37 PM EST This test is performed by the [employer]ay[employer] instrument for Real Time PCR C. trachomatis and N. gonorrhea. This test is FDA approved for use with endocervical, vaginal, and urine specimens. This test is used for clinical purposes. It should not be regarded as invesigational or for research. [facility] Clinical Microbiology Laboratory is certified under the Clinical Laboratory Improvement Amendments of 1988 (CLIA-88) as qualified to perform high complexity clinical laboratory testing. us Nicolas Medina MD LAB MICROBIOLOGY - [facility] Final Result Performing Organization Address City/[facility]/ZIP Co de Phone Number [facility] [address] [place] [address] * HIV 1 & 2 Antibody/Antigen Screen (05/22/2025 3:52 PM EST) HIV 1 & 2 Antibody/Antigen Screen Non Reactive Non Reactive 05/22/2025 7:28 PM EST [facility] Comment:Screening for HIV 1 & 2 antibodies, and P24 antigen is NONREACTIVE. No confirmatory testing is required. Blood Venous blood specimen / Unknown Venipuncture / Unknown 05/22/2025 3:52 PM EST 05/22/2025 6:48 PM EST us Nicolas Medina MD LAB BLOOD ORDERABLES Final Resu lt [facility] [address] [place] [address] * Hepatitis C Antibody w/Reflex to HCV Quant PCR (05/22/2025 3:52 PM EST) Hepatitis C Antibody Negative Negative 05/22/2025 7:29 PM EST [facility] Blood Venous blood specimen / Unknown Venipuncture / Unknown 05/22/2025 3:52 PM EST 05/22/2025 6:48 PM EST us Nicolas Medina MD LAB BLOOD ORDERABLES Final Resu lt Performing Organization Address City/[facility]/ZIP Co de Phone Number [facility] [address] [place] [address] * Neisseria gonorrhea DNA by PCR (05/22/2025 3:52 PM EST) Neisseria gonorrhea DNA PCR Result Not Detected Not Detected. 05/23/2025 2:37 PM EST [facility] Urine Urine specimen obtained by clean catch procedure / Unknown Non-blood Collection / Unknown 05/22/2025 3:52 PM EST 05/22/2025 6:47 PM EST Narrative [facility] - 05/23/2025 2:37 PM EST This test is performed by the [employer] instrument for Real Time PCR C. trachomatis and N. gonorrhea. This test is FDA approved for use with endocervical, vaginal, and urine specimens. This test is used for clinical purposes. It should not be regarded as invesigational or for research. [facility] Clinical Microbiology Laboratory is certified under the Clinical Laboratory Improvement Amendments of 1988 (CLIA-88) as qualified to perform high complexity clinical laboratory testing. Result Claudia Medina MD LAB MICROBIOLOGY - GENERAL ORDE [facility] Final Result Performing Organization Address [facility] Co de Phone Number [facility] [address] [place] [address] * Rubella Antibody IgG (05/22/2025 3:52 PM EST) Rubella Antibody IgG Negative Negative 05/22/2025 9:27 PM EST [facility] Comment: Rubella IgG Result Interpretation: [...] ORDERABLES Final Resu lt Performing Organization Address City/[facility]/ZIP Co de Phone Number [facility] [address] [place] [address] * Hepatitis B Surface Antigen (05/22/2025 3:52 PM EST) Hepatitis B Surf Antigen Negative Negative 05/22/2025 8:35 PM EST [facility] Blood Venous blood specimen / Unknown Venipuncture / Unknown 05/22/2025 3:52 PM EST 05/22/2025 6:48 PM EST Result Claudia Medina MD LAB BLOOD ORDERABLES Final Resu lt Performing Organization Address City/[facility]/ZIP Co de Phone Number [facility] [address] [place] [address] * CBC W/O Differential (05/22/2025 3:52 PM EST) Pathologist [facility] WBC Count 8.24 3.70 - 10.30 10*3/uL LAB HEMATOLOGY METHOD 05/22/2025 7:07 PM EST [facility] RBC Count 4.96 3.90 - 5.20 10*6/uL LAB HEMATOLOGY METHOD 05/22/2025 7:07 PM EST [facility] HGB 14.0 11.2 - 15.7 g/dL LAB HEMATOLOGY METHOD 05/22/2025 7:07 PM EST [facility] HCT 41.6 34.0 - 45.0 % LAB HEMATOLOGY METHOD 05/22/2025 7:07 PM EST [facility] Platelet Count 318 155 - 369 10*3/uL LAB HEMATOLOGY METHOD 05/22/2025 7:07 PM EST [facility] MCV 84 79 - 98 fL LAB HEMATOLOGY METHOD 05/22/2025 7:07 PM EST [facility] MCH 28.2 26.0 - 32.0 pg LAB HEMATOLOGY METHOD 05/22/2025 7:07 PM EST [facility] MCHC 33.7 30.7 - 35.5 g/dL LAB HEMATOLOGY METHOD 05/22/2025 7:07 PM EST [facility] RDW 12.9 11.5 - 14.5 % LAB HEMATOLOGY METHOD 05/22/2025 7:07 PM EST [facility] MPV 11.0 8.8 - 12.5 fL LAB HEMATOLOGY METHOD 05/22/2025 7:07 PM EST [facility] nRBC 0.0 <=0.0 per 100 WBCs LAB HEMATOLOGY METHOD 05/22/2025 7:07 PM EST [facility] Blood Venous blood specimen / Unknown Venipuncture / Unknown 05/22/2025 3:52 PM EST 05/22/2025 6:48 PM EST us Nicolas Medina MD LAB BLOOD ORDERABLES Final Resu lt [facility] [address] [place] [address] * Type and Screen (05/22/2025 3:52 PM [...] LAB BLOOD BANK TEST ORDERABLES Final Result BLOOD BANK [address] [place] [address], * Urine Culture (05/22/2025 3:52 PM EST) Culture <10,000 CFU/mL Mixed urogenital, fecal, or skin sophia present. 05/24/2025 9:27 AM EST [facility] Urine Urine specimen obtained by clean catch procedure / Unknown Non-blood Collection / Unknown 05/22/2025 3:52 PM EST 05/22/2025 6:47 PM EST us Nicolas Medina MD LAB MICROBIOLOGY - GENERAL ORDE RABLES Final Result [facility] [address] [place] [address] * OB US Transvaginal (05/22/2025 3:29 PM EST) Anatomical Region Laterality Modality Pelvis Ultrasound 05/22/2025 3:32 PM EST Impressions 05/22/2025 3:41 PM EST The OB Ultrasound you requested has been resulted. Please navigate to the Imaging tab in [email or web address] for review. This message has been generated by the interface. Narrative Procedure Note Nicolas Medina MD - 05/22/2025 IMPRESSION: The OB Ultrasound you requested has been resulted. Please navigate to theImaging tab in [email or web address] for review. This message has been generated by theinterface. us Nicolas Medina MD IMG OB US PROCEDURES Final Resu lt * (ABNORMAL) Test Qualitative Plasma (05/17/2025 3:43 PM EDT) Test Positive(A ) Negative 05/17/2025 7:18 PM EDT [facility] Blood Venous blood specimen / Unknown Venipuncture / Unknown 05/17/2025 3:43 PM EDT 05/17/2025 3:43 PM EDT Narrative [facility] - 05/17/2025 7:18 PM EDT Positive, greater than 6 mIU/hCG mL. us Halle Waldrop MD LAB BLOOD ORDERABLES Final Result [facility] [address] [place] [address] * POCT Urine (05/17/2025 3:27 PM EDT) [...] Insurance [employer] MEDICAID [facility] [place] 0[place] Advance Directives * Full Code (Latest Code Status on File) Date Activated Date Inactivated Comments 11/24/2024 9:20 PM 11/26/2024 4:06 PM Question Answer Comments I have reviewed the capacity from the link above and, if needed, have updated to appropriate status: Yes Care Teams Program Coordinator For Residence Life Relationship Specialty Start Date End Date Estrellita Dietz MD [facility] [place] [address] PCP - General 11/30/20
--- OUTSIDE RECORDS SUMMARY | 2025-06-26 23:04 | XMS_ITS | Encounter Summary ---
Author Organization Healthcare Address [address] [place] [address] Care Team Providers Care Maintenance Manager Name Role Phone Estrellita Dietz MD Primary Care Provider [phone] Encounter Details Date Type Department Care Team (Late st Contact Info) Description 06/19/2022 Outside Procedure External Location [address] [place] [address] Bahman Kumar, UNDERBASTER [address] [place] [address] Social History Tobacco Use Types [...] Lower Extremities, Knee Left [facility] 06/19/2022 4:44 PM EST Narrative 06/20/2022 10:46 [place] [address] Name: WILDER MOJICA Exam Date: 06/19/2022 : 2000 Age 21 Gender: F Physician: BAHMAN KUMAR Facility: [facility] Facility HSV: Outpatient Exam: [id number] [...] Thank you for referring WILDER MOJICA to [facility]. Legally authenticated by PASQUALE DURAND 2022-06-20 10:34:39 Procedure Note Provider, Priyank Newcastle - 06/20/2022 [address] [place] [address] Name: WILDER MOJICA Exam Date: 06/19/2022 : 2000 Age 21 Gender: F Physician: BAHMAN KUMAR Facility: [facility] Facility HSV: Outpatient Exam: [id number] [...] referring WILDER MOJICA to [facility]. Legally authenticated by PASQUALE DURAND 2022-06-20 10:34:39 Bahman Kumar UNDERBASTER IMG XR PROCEDURES Final R esult documented in this encounter Visit Diagnoses Not on filedocumented in this encounter Additional Health Concerns Assessment Noted Time A fall risk assessment has been complete d for the patient 06/19/2022 4:06 PM EST documented as of this encounter Care Teams Maintenance Manager Relationship Specialty Start Date End Date Estrellita Dietz MD [address] [place] [address] PCP - General 11/30/20 documented as of this encounter
--- OUTSIDE RECORDS SUMMARY | 2025-06-26 23:04 | XMS_ITS | Encounter Summary ---
Author Organization [facility] Address [address] [place] [address] Care Team Providers Care Bowstring Maker Name Role Phone Estrellita Dietz MD Primary Care Provider [phone] Encounter Details Date Type Department Care Team [...] any time in the past 12 m [facility], were you homeless or living in a detention (including now)? No 05/17/2025 [facility] [...] documented as of this encounter Care Teams Bowstring Maker Relationship Specialty Start Date End Date Estrellita Dietz MD [address] [place] [address] PCP - General 11/30/20 documented as of this encounter
--- OUTSIDE RECORDS SUMMARY | 2025-06-26 23:04 | XMS_ITS | Encounter Summary ---
Author Organization [facility] Address [address] [place] [address] Care Team Providers Care Juvenile Correctional Officer Name Role Phone Estrellita Dietz MD Primary Care Provider [phone] Encounter Details Date Type Department Care Team (Late st Contact Info) Description 05/31/2025 Telephone Obstetrics & Gynecology [address] [place] [address] Nicolas Medina MD [address] [place] [address] Social History Tobacco Use Types [...] a nursing home (including now)? No 05/17/2025 [facility] Utilities Answer Date Recorded In the [...] she's in; please call Best contact number: [phone] (mobile) Optimal time of day to reach [...] will receive notification of the communication/outcome via Shot[employer]. documented in this encounter Plan of Treatment [...] documented as of this encounter Care Teams Juvenile Correctional Officer Relationship Specialty Start Date End Date Estrellita Dietz MD [address] [place] [address] PCP - General 11/30/20 documented as of this encounter
--- OUTSIDE RECORDS SUMMARY | 2025-06-26 23:05 | XMS_ITS | Encounter Summary ---
Author Organization [facility] Address [address] [place] [address] Care Team Providers Care Cardiac Monitor Technician Name Role Phone Estrellita Dietz MD Primary Care Provider [phone] Encounter Details Date Type Department Care Team [...] and Family Not on file 05/17/2025 Attends Islam Services Not on file 05/17 Active Member [...] in a residential (including now)? No 05/17/2025 [facility] Utilities Answer Date Recorded In [...] documented as of this encounter Care Teams Cardiac Monitor Technician Relationship Specialty Start Date End Date Estrellita Dietz MD [address] [place] [address] PCP - General 11/30/20 documented as of this encounter
--- OUTSIDE RECORDS SUMMARY | 2025-06-26 23:05 | XMS_ITS | Encounter Summary ---
Author Organization Healthcare Address [address] [place] [address] Care Team Providers Care Wire Tester Name Role Phone Estrellita Dietz MD Primary Care Provider [phone] Reason for Visit * Reason Onset Date Comments Appointment 05/18/2025 05/18/25 [facility] ed appt per WorkQ- pt requested an appt to confirm and address concerns- pt does NOT want to see Dr Lopez or the clinic staff who assisted Dr Lopez when pt was at her last appt w/ Dr John PEÑA Encounter Details Date Type Department Care Team (Late st Contact Info) Description 05/18/2025 Telephone Obstetrics & Gynecology [address] [place] [address] Nicolas Medina MD [address] [place] [address] Appointment (05/18/25 scheduled appt per [...] and Family Not on file 05/17/2025 Attends Lutheran Services Not on file 05/17 Active Member [...] time in the past 12 m [facility], were you homeless or living in a correction (including now)? No 05/17/2025 [facility] Utilities Answer Date Recorded In [...] documented as of this encounter Care Teams Wire Tester Relationship Specialty Start Date End Date Estrellita Dietz MD [address] [place] [address] PCP - General 11/30/20 documented as of this encounter
--- OUTSIDE RECORDS SUMMARY | 2025-06-26 23:05 | XMS_ITS | Encounter Summary ---
Author Organization [facility] Address [address] [place] [address] Care Team Providers Care Spring Salvage Worker Name Role Phone Estrellita Dietz MD Primary Care Provider [phone] Encounter Details Date Type Department Care Team (Late st Contact Info) Description 05/23/2025 Telephone Obstetrics & Gynecology [address] [place] [address] Nicolas Medina MD [address] [place] [address] Social History Tobacco Use Types [...] any time in the past 12 m [facility], were you homeless or living in a residential (including now)? No 05/17/2025 [facility] Utilities Answer Date Recorded In the [...] Not at all 06/21/2025 10:14 AM EST [place], Kasha Patient Health Questionnaire-9 Score 0 09/2024 10:14 AM EST [place], Kasha * Calculated C-SSRS Risk Score (Lifetime/Recent) Answer Date of Assessment Author No Risk Indicated 06/21/2025 10:15 AM EST [place], Kasha * How difficult have these problems made it for you to do your work, take care of things at home, or get along with other people? Answer Date of Assessment Author Not difficult at all 06/21/2025 10:14 AM EST Serenity Kapadia * Question Answer Date of Assessment Author 1. Wish to be (Past 1 Month) No 025 10:15 AM EST [place], Kasha 2. Non-Specific Active Suici shon Thoughts (Past 1 Month) No 06/21/2025 10:15 AM EST [place] Kasha 6. Suicidal Behavior (Lifetime) No 10:15 AM EST [place] Kasha documented as of this encounter Miscellaneous Notes * Telephone Encounter - Doris Naranjo - 05/23/2025 2:32 PM EST Status Update Call #1 1st call regarding the status of the initial request. Best contact number: [phone] (mobile) Optimal time of day to reach [...] will receive notification of the communication/outcome via [employer]. * Telephone Encounter - Dulce Syed - 05/23/2025 9:55 AM EST Clinical Concern/Question Reason for Call: Pt calling for results from yesterday apt. Best contact number: [phone] (mobile) Optimal time of day to reach caller: ANYTIME Additional comments/information from caller: None Note: Please do not reply to this message. Follow-up communication and further actions as a result of this message need to be communicated with the patient directly, if the patient is not active onMyChart. If the patient is active on MyChart, they will receive notification of the communication/outcome via [employer]. documented in this encounter Plan of Treatment [...] documented as of this encounter Care Teams Spring Salvage Worker Relationship Specialty Start Date End Date Estrellita Dietz MD [address] [place] [address] PCP - General 11/30/20 documented as of this encounter
--- OUTSIDE RECORDS SUMMARY | 2025-06-26 23:05 | XMS_ITS | Encounter Summary ---
Author Organization [facility] Address [address] [place] [address] Care Team Providers Care Clinical Associate Name Role Phone Estrellita Dietz MD Primary [...] a nursing home (including now)? No 05/17/2025 [facility] Utilities Answer Date Recorded In the [...] documented as of this encounter Care Teams Clinical Associate Relationship Specialty Start Date End Date Estrellita Dietz MD [address] [place] [address] PCP - General 11/30/20 documented as of this encounter
--- OUTSIDE RECORDS SUMMARY | 2025-06-26 23:05 | XMS_ITS | Encounter Summary ---
Author Organization [facility] Address [address] [place] [address] Care Team Providers Care Manager Utilities Name Role Phone Estrellita Dietz MD Primary Care Provider [phone] Encounter Details Date Type Department Care Team (Late st Contact Info) Description 05/18/2025 Orders Only [facility] [address] [place] [address] Halle Waldrop MD [address] [place] [address] Positive test (Primary Dx) Social [...] in a assisted (including now)? No 05/17/2025 [facility] Utilities Answer Date Recorded In the [...] <5 mIU/mL 05/18/2025 1:[address] [facility] Blood Venous blood specimen / Unknown Venipuncture / Unknown 05/17/2025 3:43 PM EDT 05/17/2025 3:[address] [facility] - 05/18/2025 1:07 PM EDT [...] BLOOD ORDERABLES Final Result Performing Organization Address City/State/[facility] Co de Phone Number [facility] [address] [place] [address] documented in this encounter Visit Diagnoses Diagnosis [...] as of this encounter Care Teams Manager Utilities Relationship Specialty Start Date End Date Estrellita Dietz MD [address] [place] [address] PCP - General 11/30/20 documented as of this encounter
--- OUTSIDE RECORDS SUMMARY | 2025-06-26 23:05 | XMS_ITS | Encounter Summary ---
Author Organization [facility] Address [address] [place] [address] Care Team Providers Care Wedding Decorator Name Role Phone Estrellita Dietz MD Primary Care Provider [phone] Encounter Details Date Type Department Care Team (Late st Contact Info) Description 05/22/2025 Results Follow-Up [facility] [address] [place] [address] Halle Waldrop MD [address] [place] [address] Social History Tobacco Use Types [...] any time in the past 12 m [facility], were you homeless or living in a mcfp (including now)? No 05/17/2025 [facility] Utilities Answer Date Recorded In the past [...] usual Not at all 05/22/2025 3:13 PM EST Maryanne Schmidt Thoughts that you would be b cory [...] documented as of this encounter Care Teams Wedding Decorator Relationship Specialty Start Date End Date Estrellita Dietz MD [address] [place] [address] PCP - General 11/30/20 documented as of this encounter
--- OUTSIDE RECORDS SUMMARY | 2025-06-26 23:05 | XMS_ITS | Encounter Summary ---
Author Organization [facility] Address [address] [place] [address] Care Team Providers Care Community Relations Director Name Role Phone Estrellita Dietz MD Primary Care Provider [phone] Encounter Details Date Type Department Care Team [...] in a mcfp (including now)? No 05/17/2025 [facility] Utilities Answer Date Recorded In [...] documented as of this encounter Care Teams Community Relations Director Relationship Specialty Start Date End Date Estrellita Dietz MD [address] [place] [address] PCP - General 11/30/20 documented as of this encounter
--- OUTSIDE RECORDS SUMMARY | 2025-06-26 23:05 | XMS_ITS | Encounter Summary ---
Author Organization [facility] Address [address] [place] [address] Care Team Providers Care Nut Sifter Name Role Phone Estrellita Dietz MD Primary Care Provider [phone] Reason for Visit * Reason Onset Date Comments [facility] Clinical Concern/Question 05/17/2025 Encounter Details Date Type Department Care Team (Late st Contact Info) Description 05/17/2025 Telephone [facility] & [address] [address] Estrellita Dietz MD [address] [place] [address] [facility] Clinical Concern/Question Social History Tobacco [...] and Family Not on file 05/17/2025 Attends Episcopalian Services Not on file 05/17 Active Member [...] time in the past 12 m [facility], were you homeless or living in a [place] [facility] [place] (including now)? No 05/17/2025 [facility] Utilities Answer Date Recorded In the [...] 0 09/2024 3:13 PM Maryanne Mayo * Calculated C-SSRS Risk Score (Lifetime/Recent) Answer Date of Assessment Author No Risk Indicated 05/17/2025 3:12 PM EDT [facility] * How difficult have these problems made it for you to do your work, take care of things at home, or get along with other people? Answer Date of Assessment Author Not difficult at all 05/22/2025 3:13 PM Maryanne Wan * Question Answer Date of Assessment Author [...] pt for more information. Best contact number: [phone] (mobile) Optimal time of day to reach caller: ANYTIME Additional comments/information from caller: None Note: Please do not reply to this message. Follow-up communication and further actions as a result of this message need to be communicated with the patient directly, if the patient is not active onMyChart. If the patient is active on MyChart, they will receive notification of the communication/outcome via [employer]wi[employer]hart. documented in this encounter Plan of Treatment [...] documented as of this encounter Care Teams Nut Sifter Relationship Specialty Start Date End Date Estrellita Dietz MD [address] [place] [address] PCP - General 11/30/20 documented as of this encounter
--- OUTSIDE RECORDS SUMMARY | 2025-06-26 23:05 | XMS_ITS | Encounter Summary ---
Author Organization [facility] Address [address] [place] [address] Care Team Providers Care Retail Business Development Manager Name Role Phone Estrellita Dietz MD Primary Care Provider [phone] Encounter Details Date Type Department Care Team [...] and Family Not on file 05/17/2025 Attends Buddhism Services Not on file 05/17 Active Member [...] in a assisted (including now)? No 05/17/2025 [facility] Utilities Answer Date Recorded In [...] documented as of this encounter Care Teams Retail Business Development Manager Relationship Specialty Start Date End Date Estrellita Dietz MD [address] [place] [address] PCP - General 11/30/20 documented as of this encounter
--- OUTSIDE RECORDS SUMMARY | 2025-06-26 23:05 | XMS_ITS | Encounter Summary ---
Author Organization [facility] Address [address] [place] [address] Care Team Providers Care Associate Professor Of Mathematics Name Role Phone Estrellita Dietz MD Primary Care Provider [phone] Encounter Details Date Type Department Care Team (Late st Contact Info) Description 05/23/2025 Results Follow-Up Obstetrics & Gynecology [address] [place] [address] Nicolas Medina MD [address] [place] [address] Social History Tobacco Use Types [...] and Family Not on file 05/17/2025 Attends Confucianism Services Not on file 05/17 Active Member [...] in the past 12 m [facility], were you homeless or living in a jail (including now)? No 05/17/2025 [facility] [...] documented as of this encounter Care Teams Associate Professor Of Mathematics Relationship Specialty Start Date End Date Estrellita Dietz MD [address] [place] [address] PCP - General 11/30/20 documented as of this encounter
--- OUTSIDE RECORDS SUMMARY | 2025-06-26 23:05 | XMS_ITS | Encounter Summary ---
Author Organization [facility] Address [address] [place] [address] Care Team Providers Care Turn Down Attendant Name Role Phone Estrellita Dietz MD Primary Care Provider [phone] Reason for Visit * Reason Onset Date Comments Results 05/18/2025 Encounter Details Date Type Department Care Team (Late st Contact Info) Description 05/18/2025 Telephone [facility] & [address] [address] Estrellita Dietz MD [address] [place] [address] Results Social History Tobacco Use Types [...] time in the past 12 m [facility], were you homeless or living in a assisted (including now)? No 05/17/2025 [facility] Utilities Answer Date Recorded In the past [...] Maryanne Mayo Patient Health Questionnaire-9 Score 0 11/0 09/2024 3:13 PM Maryanne Mayo * How [...] on her results that she sees on [employer]. Calling to see if someone could give her her hcg value. Best contact number and optimal time of day to reach caller: [phone] - anytime Note: Please do not reply to this message. Follow-up communication and further actions as a result of this message need to be communicated with the patient directly, if the patient is not active onMyChart. If the patient is active on MyChart, they will receive notification of the communication/outcome via [employer]. documented in this encounter Plan of Treatment [...] documented as of this encounter Care Teams Turn Down Attendant Relationship Specialty Start Date End Date Estrellita Dietz MD [address] [place] [address] PCP - General 11/30/20 documented as of this encounter
--- OUTSIDE RECORDS SUMMARY | 2025-06-26 23:05 | XMS_ITS | Encounter Summary ---
Author Organization [facility] Address [address] [place] [address] Care Team Providers Care Heating Element Builder Name Role Phone Estrellita Dietz MD Primary Care Provider [phone] Encounter Details Date Type Department Care Team (Late st Contact Info) Description 05/18/2025 Results Follow-Up [facility] [address] [place] [address] Av Petty Social History Tobacco [...] and Family Not on file 05/17/2025 Attends Uatsdin Services Not on file 05/17 Active Member [...] in a intermediate (including now)? No 05/17/2025 [facility] Utilities Answer Date Recorded In the [...] documented as of this encounter Care Teams Heating Element Builder Relationship Specialty Start Date End Date Estrellita Dietz MD [address] [place] [address] PCP - General 11/30/20 documented as of this encounter
[2025-06-26 23:45] LABS: Bilirubin,Urine Negative (Negative); Color,Urine YELLOW (Yellow); Glucose,Urine (UA) Negative (Negative); Ketones,Urine Negative (Negative); Leukocyte Esterase,Urine Negative (Negative); Microscopic, Urine URINE MICROSCOPIC (MICROSCOPIC); PH,Urine 8.0 (5.0-8.5); Protein,Urine TRACE (Negative); Specific Gravity, Urine 1.020 (1.005-1.030); Urobilinogen,Urine 1.0 EU/dl (0.2)
[2025-06-27 00:57] VITALS: BP 104/43; PULSE 85; RESP 18; TEMP 36.8; O2SAT 99
--- NOTE | 2025-06-27 03:32 | ED_ITS ---
Discharge Plan Disposition Patient Disposition: Home, Self-Care Condition: Good Prescriptions Prescriptions: No Action progesterone micronized 200 mg capsule 200 mg PO HS Classic 28 mg iron- 800 mcg tablet PO DAILY hydrocortisone 1 % cream 1 applic topical BID PRN (Reason: rash) Qty: 28.35 0RF Referrals Follow up/Referrals: Estrellita Dietz [Primary Care Provider, Medical] - See instructions Activity Restrictions/Add. Instructions Additional Instructions/Restrictions: You were evaluated in the ER and are believed to be appropriate for discharge at this time. Continue taking all home medications as prescribed. Follow-up with OB as scheduled. Return to the ER with any new, worsening, or otherwise concerning symptoms as discussed. Clinical Impressions Clinical Impression: Abdominal pain of left lower quadrant during , antepartum Print Language Print Language: Ukrainian Discharge ED Provider: Marry Dow Adult HPI General Chief complaint: PAIN Stated complaint: 9 weeks AP abdominal cramping and hip pain Time Seen by Provider: 06/26/25 23:24 Mode of Arrival: Ambulatory Source of Information: Patient Description of Symptoms (Recalled from ER Triage Doc. by RN): Pt presents with ongoing pain from her left hip into her left abdomen. Pt has a history of previous miscarriage and just wanted to be checked out History of Present Illness HPI narrative: 24-year-old female approximately 9 weeks presents to the ER with left flank and left lower quadrant abdominal pain. She states this has been going on about 24 hours, she rates it as mild. She has not taken any medications for her pain. Denies fevers or chills, no chest pain or difficulty breathing, nausea, vomiting, or diarrhea. Denies dysuria or hematuria. She denies any vaginal discharge or bleeding. No pelvic cramping. Patient states she is mostly concerned because she has a history of previous miscarriage and wants to make sure the baby is okay. She has no other complaints or concerns and has close follow-up scheduled with OB in 1 week. No fevers, cough, congestion, or other associated symptoms. Last bowel movement this evening, no constipation or diarrhea. Denies recent illness. Related Data Home Medications ?Medication ?Instructions ?Recorded ?Confirmed vits no.126-ferrous fum tab PO DAILY 06/09/25 06/20/25 28 mg iron-folic acid 800 mcg tablet (Classic ) progesterone micronized 200 mg 200 mg PO HS 06/09/25 1 08/21/24 capsule Previous Rx's ?Medication ?Instructions ?Recorded hydrocortisone 1 % topical cream 1 applic topical BID PRN rash 06/16/25 #28.35 grams Allergies Allergy/AdvReac Type Severity Reaction Status Date / Time azithromycin (From Zithromax) Allergy Severe Hives Verified 06/20/25 14:20 [facility] Disclaimer: The information contained in this section may have been updated after the patient was seen, as this information can be updated by other users. Medical History (Updated 06/27/25 @ 00:37 by Cheryl Werner MD) Encounter for supervision of other normal , first trimester Asthma Anxiety ADHD Surgical History H/O adenoidectomy Social History Smoking Status: Never smoker alcohol intake: never current occupational status: unemployed Travel in the last 8 weeks?: Outside the [facility] Have you lived/traveled outside US in past 30 days?: No Contact w/someone who lives/traveled outside US past 30 days?: No Exposure to someone with infectious disease in past 14 days?: No Do you have a fever (greater than 100.4 F or 38 C)?: No Have you tested positive for COVID-19?: No Exposed to someone with COVID-19 in past 14 days?: No Do you have a sore throat?: No Do you have a cough?: No Do you have any weakness?: No Do you have any diarrhea?: No Are you experiencing any unusual bleeding?: No Do you have any muscle aches/pain?: No Do you have any abdominal pain?: No Are you experiencing loss of taste or smell?: No ROS Obtained: Yes Systems reviewed as appropriate & no additional complaints except as documented Per HPI Physical Exam General General appearance: alert and in no apparent distress Head Head exam: atraumatic and normocephalic Eye Eye exam: Present PERRL and EOMI ENT ENT exam: Present mucous membranes moist Neck Neck exam: Present normal inspection and full ROM Chest Chest inspection: Present symmetric chest wall rise Respiratory Respiratory exam: Present normal lung sounds bilaterally; Absent respiratory distress, wheezes or stridor Cardiovascular Cardiovascular exam: Present regular rate and normal rhythm Abdominal Exam Abdominal exam: Present soft; Absent distention, tenderness (Patient denies any tenderness despite complaining of left lower quadrant and left flank discomfort. It is not reproduced or worsened with palpation), guarding or rebound Extremities Exam Extremities exam: Present full ROM Back Exam Back exam: Absent CVA tenderness (R) or CVA tenderness (L) Neurological Exam Neurological exam: Present alert and oriented X3; Absent motor sensory deficit Psychiatric Psychiatric exam: Present normal affect and normal mood Skin Skin exam: Present warm and dry Medical Decision Making Medical Records Medical records reviewed: Yes I reviewed the patient's medical records. Screening: Per USPSTF and CDC recommendations, given the prevalence of disease in our region, it is our hospital?s policy to screen for HIV and viral Hepatitis for all patients aged 18 and over and those with ongoing risk factors. Chandan Inquiry Pt receiving controlled substance: No Vital Signs: 06/26/25 22:56 06/27/25 00:57 Temperature 97.6 F 98.3 F Temperature Source Oral Oral Pulse Rate 85 Pulse Rate [Right] 72 Respiratory Rate 18 18 Blood Pressure 104/43 L Blood Pressure [Right Arm] 104/43 L Blood Pressure Mean [Right Arm] 63 Blood Pressure Source [Right Arm] Automatic Cuff Blood Pressure Position [Right Arm] Sitting 02 Sat by Pulse Oximetry 100 Oxygen Delivery Method Room Air Room Air Lab Data Lab Results 06/26/25 23:40: Urine Color Yellow, Urine Appearance Clear, Urine pH 8.0, Ur Specific Morton 1.020, Urine Protein Trace, Urine Glucose (UA) Negative, Urine Ketones Negative, Urine Blood Negative, Urine Nitrate Negative, Urine Bilirubin Negative, Urine Urobilinogen 1.0, Ur Leukocyte Esterase Negative Orders (Tests/Meds): ORDERS Category Date Time Status POCUS Point of Care (ER Only) Stat Exams 06/26/25 23:27 Completed Urinalysis and Microscopic Stat Lab 06/26/25 23:40 Completed Medical Decision Narrative: In summary, this 24-year-old female G2, P0 9 weeks presents to the emergency department today with left lower quadrant and left flank discomfort. On initial evaluation patient is hemodynamically stable, afebrile, GCS 15, well- appearing, she is having no other associated symptoms. She has no reproducible pain on palpation, nonfocal abdominal exam, no CVA tenderness, remainder of exam benign. Differential diagnosis includes but is not limited to early uterine stretching, I considered UTI or pyelonephritis but have lower suspicion for these since patient has no fever or urinary symptoms, I did consider diverticulitis as well but have low concern for this since she has no bowel symptoms. I considered ectopic but patient has had OB ultrasound that did not demonstrate one and I performed [id number] ultrasound at bedside which demonstrates no ectopic, no pelvic free fluid, and live IUP. Based on these concerns, I ordered urinalysis. Patient is very well-appearing and has nonfocal exam otherwise so I do not believe additional labs or imaging are indicated at this time. Labs reviewed by me demonstrate UA negative for findings of infection. I believe patient is appropriate for discharge at this time. She is comfortable with this plan. She is reassured that baby looks well on ultrasound. Patient was given instructions on symptomatic management, follow up instructions, and return precautions for the emergency department. Patient indicated understanding and was discharged in stable condition. Procedures Miscellaneous Procedure Procedure Performed: Limited OB ultrasound Performed by Cheryl Werner MD Indication: Pelvic pain Identified structures: [-Uterus -Left adnexa -Right adnexa -Pouch of Paul] Findings: Uterus: Definitive IUP FHR: 158 Right adnexa: Normal Left adnexa: Normal Cul de sac: Free fluid absent Impression: -IUP: IUP present - heart rate: 158 -Ectopic : Absent -Free fluid: Absent Images were saved to permanent archive The study was technically adequate [facility] Transabdominal: [id number] This study was performed by me, and I personally interpreted all images/videos. Based on my clinical judgement, these images were adequate and did not necessitate further imaging. Critical Care Critical Care Time Critical Care Time: No
== END 2025-06-27 01:03 | disposition home or self-care (01) ==
PROVIDERS: Emergency Medicine; Emergency Provider Student in an Organized Health Care Education/Training Program; PCP Family Medicine
DX: O26.891 Other specified pregnancy related conditions, first trimester (principal); Z3A.09 9 weeks gestation of pregnancy; R10.32 Left lower quadrant pain; O99.511 Diseases of the respiratory system complicating pregnancy, first trimester; J45.909 Unspecified asthma, uncomplicated
CPT/HCPCS: 81001; 99283

== ENCOUNTER 2025-06-30 22:22 | Emergency (ER) | payer BC, OTHER, SELFPAY ==
--- OUTSIDE RECORDS SUMMARY | 2025-05-17 14:20 | XMS_ITS | Encounter Summary ---
Author Organization [facility] Address [address] [place] [address] Care Team Providers Care Fishing Tackle Repairer Name Role Phone Estrellita Dietz MD Primary Care Provider [phone] Reason for Visit * Reason Comments Follow-up Pt is here to determ ine if she is Encounter Details Date Type Department Care Team (Late st Contact Info) Description 05/17/2025 3:20 PM EDT [facility] [address] [address] Halle Waldrop MD [address] [place] [address] Missed period (Primary Dx); Positive [...] and Family Not on file 05/17/2025 Attends Yarsanism Services Not on file 05/17 Active Member [...] any time in the past 12 m [facility], were you homeless or living in a half-way (including now)? No 05/17/2025 [facility] Utilities Answer Date Recorded In the [...] No 025 3:12 PM EDT Av Petty 2. Non-Specific Active Suici shon Thoughts (Past 1 Month) No 05/17/2025 3:12 PM EDT Nelson Petty 6. Suicidal Behavior (Lifetime) No 3:12 PM [...] 44.4(H) <5 mIU/mL 05/18/2025 1:07 PM EDT [facility] Blood Venous blood specimen / Unknown Venipuncture / Unknown 05/17/2025 3:43 PM EDT 05/17/2025 3:43 PM EDT Narrative [facility] - 05/18/2025 1:07 PM EDT Patients: [...] Waldrop MD LAB BLOOD ORDERABLES Final Result [facility] [address] [place] [address] * (ABNORMAL) Test Qualitative Plasma (05/17/2025 3:43 PM EDT) Test Positive(A ) Negative 05/17/2025 7:18 PM EDT [facility] Blood Venous blood specimen / Unknown Venipuncture / Unknown 05/17/2025 3:43 PM EDT 05/17/2025 3:43 PM EDT Narrative [facility] - 05/17/2025 7:18 PM EDT Positive, greater than 6 mIU/hCG mL. Halle Waldrop MD LAB BLOOD ORDERABLES Final Result Performing Organization Address City/[facility] Co de Phone Number [facility] [address] [place] [address] * POCT Urine (05/17/2025 3:27 PM EDT) [facility] Signature Urine - Point of Care Negative Negative [...] documented as of this encounter Care Teams Fishing Tackle Repairer Relationship Specialty Start Date End Date Estrellita Dietz MD [address] [place] [address] PCP - General 11/30/20 documented as of this encounter
--- OUTSIDE RECORDS SUMMARY | 2025-05-19 12:15 | XMS_ITS | Encounter Summary ---
Author Organization [facility] Address [address] [place] [address] Care Team Providers Care Fee Clerk Name Role Phone Estrellita Dietz MD Primary Care Provider [phone] Encounter Details Date Type Department Care Team (Latest Contact Info) Description 05/19/2025 1:15 PM EDT Clinical Support [address] [phone] Positive test (Primary Dx) Social [...] and Family Not on file 05/17/2025 Attends [employer] Services Not on file 05/17 Active Member [...] any time in the past 12 m [facility], were you homeless or living in a detention (including now)? No 05/17/2025 [facility] Utilities Answer Date Recorded In the past [...] Re sult [facility] [address] [place] [address] documented in this encounter Visit Diagnoses Diagnosis [...] documented as of this encounter Care Teams Fee Clerk Relationship Specialty Start Date End Date Estrellita Dietz MD [address] [place] [phone] PCP - General 11/30/20 documented as of this encounter
--- OUTSIDE RECORDS SUMMARY | 2025-05-22 15:00 | XMS_ITS | Encounter Summary ---
Author Organization [facility] Address [address] [place] [address] Care Team Providers Care Buyers' Agent Name Role Phone Estrellita Dietz MD Primary Care Provider [phone] Reason for Referral * Imaging (Routine) - Closed Specialty Diagnoses / Procedures Referred By Contac t Referred To Contact Diagnoses Unsure of LMP (last menstrual period) as reason for ultrasound scan Procedures OB US Transvaginal Nicolas Medina MD [address] [place] [address] Phone: tel: fax: EXT External Clinic [address] [place] [phone] Referral ID Status Reason Start Date Expiration Date Visits Re quested Visits Authorized [id number] Closed 05/22/2025 11/21/2026 1 1 Encounter Details Date Type Department Care Team (Late st Contact Info) Description 05/22/2025 3:00 PM EST Initial Obstetrics & Gynecology [address] [place] [address] Nicolas Medina MD [address] [place] [address] GA: 5w1d Social History Tobacco Use Types Packs/Day Years Used Date Smoking Tobacco: Never Passive Smoke Exposure: Never Smokeless Tobacco: Never Comments:vapes Alcohol Use Standard Drinks/Week Comments Not Currently 0 (1 standard drink = 0.6 oz pur e alcohol) occ PHQ-2 Answer Date Recorded Patient Health Questionnaire-2 Score 0 05/22/2025 PHQ-9 Answer Date Recorded Patient Health Questionnaire-9 Score 0 05/22/2025 Humiliation, Afraid, Rape, and Kick questionnair e [...] and Family Not on file 05/17/2025 Attends [employer] Not on file 05/17 Active Member [...] any time in the past 12 m ont, were you homeless or living in a [place] facility (including now)? No 05/17/2025 [facility] Utilities Answer Date Recorded In the past 12 months has [employer], gas, oil, or water company threatened to [...] Recorded Patient Health Questionnaire-2 Score 0 05/13/2023 Estimated Date of Delivery Comme nts Yes 01/21/2026 Based on last me nstrual period of 04/16/2025 Sex and Gender Information Value Date Recorded Sex Assigned at Female 01/17/2021 9:05 AM EDT Legal Sex Female 7:49 PM EDT Gender Identity Female 01/17/2021 9:05 AM EDT Sexual Orientation Straight 01/17/2021 9: 05 AM EDT documented as of this encounter Last Filed Vital Signs Vital Sign Reading Time Taken Comments Blood Pressure 111/67 05/22/2025 3:05 PM EST Pulse 95 05/22/2025 3:05 PM EST Temperature 37.8 C (100 F) 05/22/2025 3:05 PM EST Respiratory Rate - - Oxygen Saturation 100% 05/22/2025 3:05 PM EST Inhaled Oxygen Concentration - - Weight 60 kg (132 lb 4.4 oz) 05/22/2025 3:05 PM EST Height - - Body Mass Index 24.19 05/17/2025 3:01 PM EDT documented in this encounter Functional Status * Over the past 2 weeks, how often have you been bothered by any of the following problems? Question Answer Date of Assessment Author Little interest or pleasure in doing things Not at all 05/22/2025 3:13 PM Maryanne Mayo Feeling down, depressed, or hopeless Not at all 09/2024 3:13 PM Maryanne Mayo Patient Health Questionnaire-2 Score 0 09/2024 3:13 PM Maryanne Mayo * Question Answer Date of Assessment Author Trouble falling or staying a sleep, or sleeping too much Not at all 05/22/2025 3:13 PM Maryanne Mayo Feeling tired or having armaan le energy Not at all 05/22/2025 3:13 PM Maryanne Mayo Poor appetite or overeating Not at all 05/22/2025 3: 13 PM Maryanne Mayo Feeling bad about yourself - or that you are a failure or have let yourself or your family down Not at all 05/22/2025 3:13 PM Maryanne Mayo Trouble concentrating on thi ngs, such as reading the newspaper or watching television Not at all 05/22/2025 3:13 PM Maryanne Mayo Moving or speaking so slowly that other people could have noticed. Or the opposite - being so fidgety or restless that you have been moving around a lot more than usual Not at all 05/22/2025 3:13 PM Maryanne Mayo Thoughts that you would be b cory off or hurting yourself in some way Not at all 05/22/2025 3:13 PM Maryanne Mayo Patient Health Questionnaire-9 Score 0 09/2024 3:13 PM Maryanne Mayo * How difficult have these problems made it for you to do your work, take care of things at home, or get along with other people? 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 Past Surgical History She has a past surgical history that includes Adenoidectomy (N/A). Social History She reports that she has never smoked. She has never been exposed to tobacco smoke. She has never used smokeless tobacco. She reports that she does not currently use alcohol. She reports that she does not use drugs. Family History Her family history includes Adopted in an other family member; Crohn's disease in her mother. She was adopted. Allergies She is allergic to azithromycin. Current Medications She has a current medication list which includes the following prescription(s): meclizine, prenatalmv & min w/fa-dha, and progesterone. Review of Systems Objective Physical Exam Visit Vitals BP 111/67 Pulse 95 Temp 37.8 ??C (100 ??F) Pregravid weight: Pregravid weight not on file Pregravid BMI: Could not be calculated Body mass index is 24.19 kg/m??. See encounter summary and flowsheet for exam details. OB US - +GS Assessment/Plan Assessment & Plan test positive Orders: hCG, Total Beta, Quantitative, Plasma; Future Progesterone; Future CBC W/O Differential; Future Chlamydia trachomatis DNA by PCR Hepatitis B Surface Antigen; Future Hepatitis C Antibody w/Reflex to HCV Quant PCR; Future HIV 1 & 2 Antibody/Antigen Screen w/Reflex to HIV 1/2 Differentiation; Future Neisseria gonorrhea DNA by PCR Rubella Antibody IgG; Future Treponema Pallidum (Syphilis) Antibodies with Reflex to RPR and RPR Titer (Those with NO known Syphilis); Future Type and Screen; Future Urine Culture Unsure of LMP (last menstrual period) as reason for ultrasound scan Orders: OB US Transvaginal; Future hCG, Total Beta, Quantitative, Plasma; Future Progesterone; Future CBC W/O Differential; Future Chlamydia trachomatis DNA by PCR Hepatitis B Surface Antigen; Future Hepatitis C Antibody w/Reflex to HCV Quant PCR; Future HIV 1 & 2 Antibody/Antigen Screen w/Reflex to HIV 1/2 Differentiation; Future Neisseria gonorrhea DNA by PCR Rubella Antibody IgG; Future Treponema Pallidum (Syphilis) Antibodies with Reflex to RPR and RPR Titer (Those with NO known Syphilis); Future Type and Screen; Future Urine Culture state, incidental Orders: hCG, Total Beta, Quantitative, Plasma; Future Progesterone; Future CBC W/O Differential; Future Chlamydia trachomatis DNA by PCR Hepatitis B Surface Antigen; Future Hepatitis C Antibody w/Reflex to HCV Quant PCR; Future HIV 1 & 2 Antibody/Antigen Screen w/Reflex to HIV 1/2 Differentiation; Future Neisseria gonorrhea DNA by PCR Rubella Antibody IgG; Future Treponema Pallidum (Syphilis) Antibodies with Reflex to RPR and RPR Titer (Those with NO known Syphilis); Future Type and Screen; Future Urine Culture EDUC Labs HCG trend PNV bASA Prometrium at bedtime ReUs 2 weeks A total of 34 minutes was spent on this visit with at least more than 50% of the encounter spent incounseling and/or coordinating care including reviewing previous notes, counseling the patient on their identified issues as indicated in the note, discussing previous and/or ordered tests or imaging, prescribing/refilling medications, and documenting the findings in this note, as well as laying out a specific plan of action for this patient. documented in this encounter Plan of Treatment Not on file documented as of this encounter Procedures Procedure Name Priority Date/Time Associated Diagnosis Comments HIV 1/2 ANTIBODY/ANTIGEN SCREEN W/REFLEX TO HIV 1/2 ANTIBODY DIFFERENTIATION Routine 05/22/2025 3:52 PM EST test positive Unsure of LMP (last menstrual period) as reason for ultrasound scan state, incidental TREPONEMA PALLIDUM (SYPHILIS) ANTIBODIES WITH REFLEX TO RPR AND RPR TITER (THOSE WITH NO KNOWN SYPHILIS) Routine 05/22/2025 3:52 PM EST test positive Unsure of LMP (last menstrual period) as reason for ultrasound scan state, incidental CHLAMYDIA TRACHOMATIS DNA BY PCR Routine 05/22/2025 3:52 PM EST test positive Unsure of LMP (last menstrual period) as reason for ultrasound scan state, incidental HIV 1/2 ANTIBODY/ANTIGEN SCREEN WITH REFLEX TO HIV I/II DIFFERENTIATION Routine 05/22/2025 3:52 PM EST test positive Unsure of LMP (last menstrual period) as reason for ultrasound scan state, incidental HEPATITIS C ANTIBODY W/REFLEX TO HCV QUANT PCR Routine 05/22/2025 3:52 PM EST test positive Unsure of LMP (last menstrual period) as reason for ultrasound scan state, incidental NEISSERIA GONORRHEA DNA BY PCR Routine 05/22/2025 3:52 PM EST test positive Unsure of LMP (last menstrual period) as reason for ultrasound scan state, incidental PROGESTERONE III Routine 05/22/2025 3:52 PM EST test positive Unsure of LMP (last menstrual period) as reason for ultrasound scan state, incidental RUBELLA ANTIBODY IGG Routine 05/22/2025 3:52 PM EST test positive Unsure of LMP (last menstrual period) as reason for ultrasound scan state, incidental HEPATITIS B SURFACE ANTIGEN Routine 05/22/2025 3:52 PM EST test positive Unsure of LMP (last menstrual period) as reason for ultrasound scan state, incidental CBC W/O DIFFERENTIAL Routine 05/22/2025 3:52 PM EST test positive Unsure of LMP (last menstrual period) as reason for ultrasound scan state, incidental TYPE AND SCREEN Routine 05/22/2025 3:52 PM EST test positive Unsure of LMP (last menstrual period) as reason for ultrasound scan state, incidental URINE CULTURE Routine 05/22/2025 3:52 PM EST test positive Unsure of LMP (last menstrual period) as reason for ultrasound scan state, incidental HCG, QUANTITATIVE Routine 05/22/2025 3:5 2 PM EST test positive Unsure of LMP (last menstrual period) as reason for ultrasound scan state, incidental documented in this encounter Results * HIV 1 & 2 Antibody/Antigen Screen (05/22/2025 3:52 PM EST) HIV 1 & 2 Antibody/Antigen Screen Non Reactive Non Reactive 05/22/2025 7:28 PM EST [facility] Comment:Screening for HIV 1 & 2 antibodies, and P24 antigen is NONREACTIVE. No confirmatory testing is required. Blood Venous blood specimen / Unknown Venipuncture / Unknown 05/22/2025 3:52 PM EST 05/22/2025 6:48 PM EST us Nicolas Medina MD LAB BLOOD ORDERABLES Final Resu lt Performing Organization Address City/[facility]/ZIP Co de Phone Number [facility] [address] [place] [address] * Urine Culture (05/22/2025 3:52 PM EST) Pathologist [facility] Culture <10,000 CFU/mL Mixed urogenital, fecal, or skin sophia present. 05/24/2025 9:[address] [facility] Urine Urine specimen obtained by clean catch procedure / Unknown Non-blood Collection / Unknown 05/22/2025 3:52 PM EST 05/22/2025 6:47 PM EST us Nicolas Medina MD LAB MICROBIOLOGY - [facility]AL [facility]DE [facility] Final Result [facility] [address] [place] [address] * Type and Screen (05/22/2025 3:52 PM EST) ABO/Rh B Negative 05/22/2025 6:53 PM EST BLOOD BANK Antibody Screen Negative 05/22/2025 6:53 PM EST BLOOD BANK Specimen Expiration 05/25/2025 23:59 05/22/2025 6:53 PM EST BLOOD BANK Blood Venous blood specimen / Unknown Venipuncture / Unknown 05/22/2025 3:52 PM EST 05/22/2025 6:52 PM EST us Nicolas Medina MD LAB BLOOD BANK TEST ORDERABLES Final Result Performing Organization Address [facility] Phone Number BLOOD BANK [address] * Treponema Pallidum (Syphilis) Antibodies with Reflex to RPR and RPR Titer (Those with NO known Syphilis) (05/22/2025 3:52 PM EST) Syphilis Antibody (IgG+IgM) Nonreactive Nonreactive 05/22/2025 8:35 PM EST [facility] Comment:Nonreactive. No sero logic evidence of syphilis. No follow-up necessary unless clinically indicated (e.g., early syphilis). Blood Venous blood specimen / Unknown Venipuncture / Unknown 05/22/2025 3:52 PM EST 05/22/2025 6:48 PM EST us Nicolas Medina MD LAB BLOOD ORDERABLES Final Resu lt Performing Organization Address [facility] Co de Phone Number [facility] [address] [place] [address] * Rubella Antibody IgG (05/22/2025 3:52 PM EST) Rubella Antibody IgG Negative Negative 05/22/2025 9:27 PM EST [facility] Comment: Rubella IgG Result Interpretation: Negative: No IgG antibody specific to the rubella virus detected. Patient is presumed not to have had a previous exposure to rubella through infection or vaccination. Equivocal: Serologic status cannot be determined. Repeat testing in 10-14 days may be helpful. Positive: IgG antibody specific to rubella detected. IgG antibody levels are at a level considered to indicate positive immunity through infection or vaccination. Blood Venous blood specimen / Unknown Venipuncture / Unknown 05/22/2025 3:52 PM EST 05/22/2025 6:48 PM EST Result Claudia Medina MD LAB BLOOD ORDERABLES Final Resu lt Performing Organization Address City/[facility]/ZIP Co de Phone Number [facility] [address] [place] [address] * Neisseria gonorrhea DNA by PCR (05/22/2025 3:52 PM EST) Neisseria gonorrhea DNA PCR Result Not Detected Not Detected. 05/23/2025 2:[address] [facility] Urine Urine specimen obtained by clean catch procedure / Unknown Non-blood Collection / Unknown 05/22/2025 3:52 PM EST 05/22/2025 6:[address] [facility] - 05/23/2025 2:37 PM EST This test is performed by the HomeTouch instrument for Real Time PCR C. trachomatis and N. gonorrhea. This test is FDA approved for use with endocervical, vaginal, and urine specimens. This test is used for clinical purposes. It should not be regarded as invesigational or for research. The [facility] is certified under the Clinical Laboratory Improvement Amendments of 1988 (CLIA-88) as qualified to perform high complexity clinical laboratory testing. Result Claudia Medina MD LAB MICROBIOLOGY - GENERAL ORDE [facility] Final Result Performing Organization Address [facility] [place] [address] * Hepatitis C Antibody w/Reflex to HCV Quant PCR (05/22/2025 3:52 PM EST) Hepatitis C Antibody Negative Negative 05/22/2025 7:29 PM EST [facility] Blood Venous blood specimen / Unknown Venipuncture / Unknown 05/22/2025 3:52 PM EST 05/22/2025 6:48 PM EST Result Claudia Medina MD LAB BLOOD ORDERABLES Final Resu lt Performing Organization Address City/[facility]/ZIP Co de Phone Number [facility] [address] [place] [address] * Hepatitis B Surface Antigen (05/22/2025 3:52 PM EST) Pathologist [facility] Hepatitis B Surf Antigen Negative Negative 05/22/2025 8:35 PM EST [facility] Blood Venous blood specimen / Unknown Venipuncture / Unknown 05/22/2025 3:52 PM EST 05/22/2025 6:48 PM EST us Nicolas Medina MD LAB BLOOD ORDERABLES Final Resu lt Performing Organization Address [facility]/ZIP Co de Phone Number [facility] [address] [place] [address] * Chlamydia trachomatis DNA by PCR (05/22/2025 3:52 PM EST) [facility] Chlamydia trachomatis DNA PCR Result Not Detected Not Detected 05/23/2025 2:[address] [facility] Urine Urine specimen obtained by clean catch procedure / Unknown Non-blood Collection / Unknown 05/22/2025 3:52 PM EST 05/22/2025 6:47 PM EST Narrative [facility] - 05/23/2025 2:37 PM EST This test is performed by the JumpTime m2000 instrument for Real Time PCR C. trachomatis and N. gonorrhea. This test is FDA approved for use with endocervical, vaginal, and urine specimens. This test is used for clinical purposes. It should not be regarded as invesigational or for research. [facility] is certified under the Clinical Laboratory Improvement Amendments of 1988 (CLIA-88) as qualified to perform high complexity clinical laboratory testing. us Nicolas Medina MD LAB MICROBIOLOGY - [facility]AL [facility]DE [facility] Final Result Performing Organization Address City/[facility]/ZIP Co de Phone Number [facility] [address] [place] [address] * CBC W/O Differential (05/22/2025 3:52 PM EST) [facility] WBC Count 8.24 3.70 - 10.30 10*3/uL LAB HEMATOLOGY METHOD 05/22/2025 7:07 PM EST [facility] RBC Count 4.96 3.90 - 5.20 10*6/uL LAB HEMATOLOGY METHOD 05/22/2025 7:07 PM EST [facility] HGB 14.0 11.2 - 15.7 g/dL LAB HEMATOLOGY METHOD 05/22/2025 7:07 PM EST [facility] HCT 41.6 34.0 - 45.0 % LAB HEMATOLOGY METHOD 05/22/2025 7:07 PM EST [facility] Platelet Count 318 155 - 369 10*3/uL LAB HEMATOLOGY METHOD 05/22/2025 7:07 PM EST [facility] MCV 84 79 - 98 fL LAB HEMATOLOGY METHOD 05/22/2025 7:07 PM EST [facility] MCH 28.2 26.0 - 32.0 pg LAB HEMATOLOGY METHOD 05/22/2025 7:07 PM EST [facility] MCHC 33.7 30.7 - 35.5 g/dL LAB HEMATOLOGY METHOD 05/22/2025 7:07 PM EST [facility] RDW 12.9 11.5 - 14.5 % LAB HEMATOLOGY METHOD 05/22/2025 7:07 PM EST [facility] MPV 11.0 8.8 - 12.5 fL LAB HEMATOLOGY METHOD 05/22/2025 7:07 PM EST [facility] nRBC 0.0 <=0.0 per 100 WBCs LAB HEMATOLOGY METHOD 05/22/2025 7:07 PM EST [facility] Blood Venous blood specimen / Unknown Venipuncture / Unknown 05/22/2025 3:52 PM EST 05/22/2025 6:48 PM EST us Nicolas Medina MD LAB BLOOD ORDERABLES Final Resu lt [facility] [address] [place] [address] * Progesterone (05/22/2025 3:52 PM EST) Progesterone III 11.9 Reference Range not established ng/mL 05/22/2025 8:11 PM EST [facility] Blood Venous blood specimen / Unknown Venipuncture / Unknown 05/22/2025 3:52 PM EST 05/22/2025 7:43 PM EST Narrative [facility] - 05/22/2025 8:11 PM EST Menstrual Cycle Phase Reference Intervals: Females, 18 Y and up (ng/mL) Follicular <= 0.33 Ovulation <= 2.35 Luteal 0.5-21 Post-Menopausal <0.2 reference Intervals (ng/mL): 1st Trimester 11 - 45 2nd Trimester 25 - 84 3rd Trimester 58 - 214 us Nicolas Medina MD LAB BLOOD ORDERABLES Final Resu lt Performing Organization Address [facility] Co de Phone Number [facility] [address] [place] [address] * (ABNORMAL) hCG, Total Beta, Quantitative, Plasma (05/22/2025 3:52 PM EST) hCG, Total Beta 412(H) <5 mIU/mL 05/22/2025 7:[address] [facility] Blood Venous blood specimen / Unknown Venipuncture / Unknown 05/22/2025 3:52 PM EST 05/22/2025 6:48 PM EST Narrative [facility] - 05/22/2025 7:29 PM EST Patients: Normal Range Premenopausal Female < 5 [...] or kits cannot be used interchangeably. us Nicolas Medina MD LAB BLOOD ORDERABLES Final Resu lt Performing Organization Address [facility] Co de Phone Number [facility] [address] [place] [address] * OB US Transvaginal (05/22/2025 3:29 PM EST) Anatomical Region Laterality Modality Pelvis Ultrasound 05/22/2025 3:32 PM EST Impressions 05/22/2025 3:41 PM EST The OB Ultrasound you requested has been resulted. Please navigate to the Imaging tab in [facility] for review. This message has been generated by the interface. Narrative Procedure Note Nicolas Medina MD - 05/22/2025 IMPRESSION: The OB Ultrasound you requested has been resulted. Please navigate to theImaging tab in [facility] for review. This message has been generated by [employer]. us Nicolas Medina MD IMG OB US PROCEDURES Final Resu lt documented in this encounter Visit Diagnoses Diagnosis test positive- Primary examination or test, positive result Unsure of LMP (last menstrual period) as reason for ultrasound scan Encounter for routine screening for malformation using ultrasonics state, incidental Unsure of LMP (last menstrual period) as reason for ultrasound scan Encounter for routine screening for malformation using ultrasonics documented in this encounter Additional Health Concerns Assessment Noted Time PHQ-9 Depression Total Score: 0 05/22/20 25 3:13 PM EST A fall risk assessment has been complete d for the patient 05/22/2025 3:13 PM EST A Body Mass Index follow-up plan has been documented for the patient 05/22/2025 3:43 PM EST documented as of this encounter Care Teams Buyers' Agent Relationship Specialty Start Date End Date Estrellita Dietz MD [address] [place] [address] PCP - General 11/30/20 documented as of this encounter
--- OUTSIDE RECORDS SUMMARY | 2025-05-22 15:30 | XMS_ITS | Encounter Summary ---
Author Organization [facility] Address [address] [place] [address] Care Team Providers Care Company Doctor Name Role Phone Estrellita Dietz MD Primary Care Provider [phone] Reason for Visit * Imaging (Routine) - Closed Specialty Diagnoses / Procedures Referred By Lara rogers Referred To Contact Diagnoses Unsure of LMP (last menstrual period) as reason for ultrasound scan Procedures OB US Transvaginal Nicolas Medina MD [address] [place] [address] Phone: tel: fax: EXT External Clinic [address] [place] [phone] Referral ID Status Reason Start Date Expiration Date Visits Re quested Visits Authorized [id number] Closed 05/22/2025 11/21/2026 1 1 Encounter Details Date Type Department Care Team (Latest Contact Info) Description 05/22/2025 3:30 PM EST Ancillary Procedure Obstetrics & Gynecology [address] [place] [address] Unsure of LMP (last menstrual [...] and Family Not on file 05/17/2025 Attends [employer] Services Not on file 05/17 Active Member [...] any time in the past 12 m [facility], were you homeless or living in a prison (including now)? No 05/17/2025 [facility] Utilities Answer Date Recorded In the [...] Please navigate to the Imaging tab in zhiwo for review. This message has been generated by the interface. Narrative Procedure Note Nicolas Medina MD - 05/22/2025 IMPRESSION: The OB Ultrasound you requested has been resulted. Please navigate to theImaging tab in zhiwo for review. This message has been generated by [email or web address]. us Nicolas Medina MD IMG OB US [...] documented as of this encounter Care Teams Company Doctor Relationship Specialty Start Date End Date Estrellita Dietz MD [address] [place] [address] PCP - General 11/30/20 documented as of this encounter
--- OUTSIDE RECORDS SUMMARY | 2025-05-24 11:00 | XMS_ITS | Encounter Summary ---
Author Organization [facility] Address [address] [place] [address] Care Team Providers Care Multi Punch Operator Name Role Phone Estrellita Dietz MD Primary Care Provider [phone] Reason for Visit * Reason Comments Labs Here for labs. Encounter Details Date Type Department Care Team (Latest Contact Info) Description 05/24/2025 11:00 AM EST Clinical Support Obstetrics & Gynecology [address] [place] [address] test positive (Primary Dx) Social [...] and Family Not on file 05/17/2025 Attends [employer] Services Not on file 05/17 Active Member [...] any time in the past 12 m [facility], were you homeless or living in a residential (including now)? No 05/17/2025 [facility] Utilities Answer Date Recorded In the past [...] 842(H) <5 mIU/mL 05/24/2025 2:35 PM EST [facility] Blood Venous blood specimen / Unknown Venipuncture / Unknown 05/24/2025 10:42 AM EST 05/24/2025 2:04 PM EST Narrative [facility] - 05/24/2025 2:35 PM [...] MD LAB BLOOD ORDERABLES Final Resu lt [facility] [address] [place] [address] documented in this encounter Visit Diagnoses Diagnosis [...] documented as of this encounter Care Teams Multi Punch Operator Relationship Specialty Start Date End Date Estrellita Dietz MD [address] [place] [phone] PCP - General 11/30/20 documented as of this encounter
--- OUTSIDE RECORDS SUMMARY | 2025-05-31 15:15 | XMS_ITS | Encounter Summary ---
Author Organization Healthcare Address [address] [place] [address] Care Team Providers Care Med Peds Name Role Phone Estrellita Dietz MD Primary Care Provider [phone] Reason for Visit * Reason Comments Labs Here for labs. Encounter Details Date Type Department Care Team (Latest Contact Info) Description 05/31/2025 3:15 PM EST Clinical Support Obstetrics & Gynecology [address] [place] [address] , unspecified gestational age (Primary Dx) Social History Tobacco Use Types [...] and Family Not on file 05/17/2025 Attends Orthodoxy Services Not on file 05/17 Active Member [...] any time in the past 12 m [facility], were you homeless or living in a senior living (including now)? No 05/17/[address] [facility] Utilities Answer Date Recorded In the [...] as of this encounter Miscellaneous Notes * Addendum Note - Inocencio Kc - 05/31/2025 3:15 PM ESTAddended by: INOCENCIO KC on: 05/31/2025 02:51 PM Modules accepted: Orders documented in this encounter Plan of Treatment Not on file documented as of this encounter Procedures Procedure Name Priority Date/Time Associated Diagnosis Comments HCG, QUANTITATIVE Routine 05/31/2025 2:5 1 PM EST , unspecified gestational age PROGESTERONE III Routine 05/31/2025 2:39 PM EST , unspecified gestational age documented in this encounter Results * (ABNORMAL) hCG, Total Beta, Quantitative, Plasma (05/31/2025 2:51 PM EST) hCG, Total Beta 7,199(H) <5 mIU/mL 05/31/2025 7:[address] [facility] Blood Venous blood specimen / Unknown Venipuncture / Unknown 05/31/2025 2:51 PM EST 05/31/2025 6:[address] [facility] - 05/31/2025 7:26 PM EST Patients: Normal Range Premenopausal Female [...] ORDERABLES Final Resu lt Performing Organization Address [facility] de Phone Number [facility] [address] [place] [address] * Progesterone (05/31/2025 2:39 PM EST) Progesterone III 15.4 Reference Range not established ng/mL 05/31/2025 7:[address] [facility] Blood Venous blood specimen / Unknown Venipuncture / Unknown 05/31/2025 2:39 PM EST 05/31/2025 6:[address] [facility] - 05/31/2025 7:24 PM EST Menstrual Cycle Phase Reference Intervals: Females, 18 Y and up (ng/mL) Follicular <= 0.33 Ovulation <= 2.35 Luteal 0.5-21 Post-Menopausal <0.2 reference Intervals (ng/mL): 1st Trimester 11 - 45 2nd Trimester 25 - 84 3rd Trimester 58 - 214 us Nicolas Medina MD LAB BLOOD ORDERABLES Final Resu lt Performing Organization Address [facility] Co de Phone Number [facility] [address] [place] [address] documented in this encounter Visit Diagnoses Diagnosis , unspecified gestational age- Primary documented in this encounter Additional Health Concerns Assessment Noted Time PHQ-9 Depression Total Score: 0 05/22/20 25 3:13 PM EST A fall risk assessment has been complete d for the patient 05/22/2025 3:13 PM EST A Body Mass Index follow-up plan has been documented for the patient 05/31/2025 2:39 PM EST documented as of this encounter Care Teams Med Peds Relationship Specialty Start Date End Date Estrellita Dietz MD [address] [place] [address] PCP - General 11/30/20 documented as of this encounter
--- OUTSIDE RECORDS SUMMARY | 2025-06-21 10:20 | XMS_ITS | Encounter Summary ---
Author Organization [facility] Address [address] [place] [address] Care Team Providers Care Dairy Quality Assurance Officer Name Role Phone Estrellita Dietz MD Primary Care Provider [phone] Reason for Visit * Reason Comments HCN Paperwork/Documentation Request New employment Eczema Encounter Details Date Type Department Care Team (Late st Contact Info) Description 06/21/2025 10:20 AM EST Office Visit [facility] [address] [place] [address] Estrellita Dietz MD [address] [place] [address] Routine general medical examination at [...] any time in the past 12 m [facility], were you homeless or living in a chcf (including now)? No 05/17/2025 [facility] Utilities Answer Date Recorded In the past 12 months has th e electric, gas, oil, or water [employer] threatened to shut off services in your [...] way Not at all 06/21/2025 10:14 AM Serenity Rojas Patient Health Questionnaire-9 Score 0 09/2024 [...] along. 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 [...] documented as of this encounter Care Teams Dairy Quality Assurance Officer Relationship Specialty Start Date End Date Estrellita Dietz MD [address] [place] [address] PCP - General 11/30/20 documented as of this encounter
--- OUTSIDE RECORDS SUMMARY | 2025-06-30 22:30 | XMS_ITS | Encounter Summary ---
Author Organization [facility] Address [address] [place] [address] Care Team Providers Care Laboratory Development Technician Name Role Phone Estrellita Dietz MD Primary Care Provider [phone] Encounter Details Date Type Department Care Team (Late st Contact Info) Description 04/25/2024 Outside Procedure External Location [address] [place] [address] Provider, Priyank [place] Social History Tobacco Use Types Packs/Day Years [...] place to sleep or slept in a fpc (including now)? No 04/15/2024 Safety and Environment [...] PM EDT Narrative 04/25/2024 5:57 [place] [address] Name: WILDER MOJICA Exam Date: 04/25/2024 : 2000 Age 23 years Gender: F Physician: ROCIO HASSAN Facility: [facility] Facility HSV: Outpatient Exam: HAND [...] to [facility]. Legally authenticated by ALYCE HAN 2024-04-25 17:51:15 Procedure Note Provider, [facility] - 04/25/2024 [place] [address] Name: WILDER MOJICA Exam Date: 04/25/2024 : 2000 Age 23 years Gender: F Physician: ROCIO HASSAN Facility: [facility] Facility HSV: Outpatient Exam: HAND [...] Thank you for referring WILDER MOJICA to [facility]. Legally authenticated by ALYCE HAN 2024-04-25 17:51:15 Generic [place] Provider IMG XR PROCEDURES Fi nal Result documented in this encounter Visit Diagnoses Not on filedocumented in this encounter Additional Health Concerns Assessment Noted Time A fall risk assessment has been complete d for the patient 03/30/2024 3:05 PM EDT A Body Mass Index follow-up plan has been documented for the patient 04/15/2024 1:55 PM EDT documented as of this encounter Care Teams Laboratory Development Technician Relationship Specialty Start Date End Date Estrellita Dietz MD [address] [place] [phone] PCP - General 11/30/20 documented as of this encounter
--- OUTSIDE RECORDS SUMMARY | 2025-06-30 22:30 | XMS_ITS | Clinical Summary ---
Author Organization [facility] Address [address] [place] [address] Care Team Providers Care Pedal Assembler Name Role Phone Estrellita Dietz MD Primary Care Provider [phone] Allergies Active Allergy Reactions Criticality Noted Date Comments Azithromycin Hives 11/07/2024 Encounters Date Type Department Care Team Description 05/23/2025 Telephone [facility] [address] [facility] [address] [place] [phone] Esme Cantu MD Appointment 05/17/2025 Telephone [facility] O[facility]YN [address] [facility] [address] [place] [address] Esme Cantu MD PT NEEDS NEW OB [...] Mojica Date of :1971 (Home) Address: [address] [place] [address] Payer ID:[id number] (NAIC) Type:Not on file Address: [facility] [id number] Care Teams Pedal Assembler Relationship Specialty Start Date End Date Estrellita Dietz MD [address] [place] [address] PCP - General Family Medicine 07/21/18
--- OUTSIDE RECORDS SUMMARY | 2025-06-30 22:30 | XMS_ITS | Encounter Summary ---
Author Organization [facility] Address [address] [place] [address] Care Team Providers Care Engineering Geologist Name Role Phone Estrellita Dietz MD Primary Care Provider [phone] Encounter Details Date Type Department Care Team (Late st Contact Info) Description 08/28/2024 Outside Procedure External Location [address] [place] [address] Provider, Priyank [place] Social History Tobacco Use Types Packs/Day Years [...] in a jail (including now)? No 04/15/2024 PHQ-9 Answer Date [...] living in a jail (including now)? No 08/22/2024 Safety and Environment [...] PM EST Narrative 08/29/2024 1:06 [place] [address] Name: WILDER MOJICA Exam Date: 08/28/2024 : 2000 Age 23 years Gender: F Physician: ROCIO HASSAN Facility: [facility] Facility HSV: Outpatient Exam: CHEST PORTABLE FINAL [...] Thank you for referring WILDER MOJICA to [facility]. Legally authenticated by ALFRED GRIFFIN 2024-08-29 01:04:15 Procedure Note Provider, Priyank [place] - 08/29/2024 [facility] [address] [place] [address] Name: WILDER MOJICA Exam Date: 08/28/2024 : 2000 Age 23 years Gender: F Physician: ROCIO HASSAN Facility: [facility] Facility HSV: Outpatient Exam: CHEST PORTABLE FINAL [...] you for referring WILDER MOJICA to [facility]. Legally authenticated by ALFRED GRIFFIN 2024-08-29 01:04:15 Generic [place] Provider IMG XR PROCEDURES Fi nal Result [...] documented as of this encounter Care Teams Engineering Geologist Relationship Specialty Start Date End Date Estrellita Dietz MD [address] [place] [address] PCP - General 11/30/20 documented as of this encounter
--- OUTSIDE RECORDS SUMMARY | 2025-06-30 22:30 | XMS_ITS | Encounter Summary ---
Author Organization [facility] Address [address] [place] [address] Care Team Providers Care Underpresser Hand Name Role Phone Estrellita Dietz MD Primary Care Provider Encounter Details Date Type Department Care Team (Late st Contact Info) Description 09/19/2024 Outside Procedure External Location [address] [place] [address] Provider, Priyank [place] Social History Tobacco Use Types Packs/Day Years [...] living in a longterm (including now)? No 08/22/2024 Safety and Environment [...] PM EST Narrative 09/19/2024 9:37 [place] [address] Name: WILDER MOJICA Exam Date: 09/19/2024 : 2000 Age 23 years Gender: F Physician: [place] Facility: [facility] Facility HSV: Outpatient Exam: CT ABD PEL [...] Thank you for referring WILDER MOJICA to [facility]. Legally authenticated by BROOKS REGAN 2024-09-19 21:33:54 Procedure Note Provider, [facility] 09/19/2024 [place] [address] Name: WILDER MOJICA Exam Date: 09/19/2024 : 2000 Age 23 years Gender: F Physician: [place] Facility: [facility] Facility HSV: Outpatient Exam: CT ABD PEL [...] Thank you for referring WILDER MOJICA to [facility]. Legally authenticated by BROOKS REGAN 2024-09-19 21:33:54 Generic [place] Provider IMG CT PROCEDURES Fi nal Result [...] documented as of this encounter Care Teams Underpresser Hand Relationship Specialty Start Date End Date Estrellita Dietz MD [address] [place] [phone] PCP - General 11/30/20 documented as of this encounter
--- OUTSIDE RECORDS SUMMARY | 2025-06-30 22:30 | XMS_ITS | Encounter Summary ---
Author Organization [facility] Address [address] [place] [address] Care Team Providers Care Heat Pump Installer Name Role Phone Estrellita Dietz MD Primary Care Provider [phone] Reason for Visit * Reason Comments Med Change Request Encounter Details Date Type Department Care Team (Late st Contact Info) Description 07/19/2024 Refill [facility] [address] [place] [address] Estrellita Dietz MD [address] [place] [address] Anxiety Social History Tobacco Use [...] place to sleep or slept in a nursing home (including now)? No 04/15/2024 PHQ-9 Answer Date [...] documented as of this encounter Care Teams Heat Pump Installer Relationship Specialty Start Date End Date Estrellita Dietz MD [address] [place] [address] PCP - General 11/30/20 documented as of this encounter
--- OUTSIDE RECORDS SUMMARY | 2025-06-30 22:30 | XMS_ITS | Encounter Summary ---
Author Organization [facility] Address [address] [place] [address] Care Team Providers Care Scraper Burrer Name Role Phone Estrellita Dietz MD Primary Care Provider [phone] Encounter Details Date Type Department Care Team [...] and Family Not on file 05/17/2025 Attends [employer] Not on file 05/17 Active Member [...] time in the past 12 m [facility], were you homeless or living in a halfway (including now)? No 05/17/2025 [facility] Utilities Answer Date Recorded In [...] documented as of this encounter Care Teams Scraper Burrer Relationship Specialty Start Date End Date Estrellita Dietz MD [address] [phone] PCP - General 11/30/20 documented as of this encounter
--- OUTSIDE RECORDS SUMMARY | 2025-06-30 22:31 | XMS_ITS | Clinical Summary ---
Author Organization [facility] Address [address] [place], [place] [id number] Phone [email or web address] Care Team Providers Care Potable Water Treatment Operator Name Role Phone Unavailable Primary Care Provider [...]
--- OUTSIDE RECORDS SUMMARY | 2025-06-30 22:31 | XMS_ITS | Clinical Summary ---
Author Organization [facility] Address [address] [place] [address] Care Team Providers Care Paint Mixer Machine Name Role Phone Estrellita Dietz MD Primary Care Provider [phone] Allergies Active Allergy Reactions Criticality Noted Date [...] Description 06/21/2025 10:20 AM EST Office Visit [facility] [address] [place] [address] Estrellita Dietz MD Routine general medical examination at a health care facility (Primary Dx); Eczema, unspecified type 06/21/2025 Travel 06/01/2025 Results Follow-Up [facility] [address] [place] [address] Nicolas Medina MD 05/31/2025 3:15 PM EST Clinical Support [facility] [address] [place] [address] , unspecified gestational age (Primary Dx) 05/31/2025 Travel 05/31/2025 Telephone [facility] [address] [place] [address] Nicolas Medina MD 05/24/2025 11:00 AM EST Clinical Support [facility] [address] [place] [address] test positive (Primary Dx) 05/24/2025 Results Follow-Up [facility] Gy[facility]cology [address] [place] [address] Nicolas Medina MD 05/24/2025 Travel 05/24/2025 Telephone Ob[facility]etrics & Gynecology [address] [place] [address] Nicolas Medina MD 05/23/2025 Results Follow-Up [facility] [address] [place] [address] Nicolas Medina MD 05/23/2025 Telephone [facility] Gy[facility]cology [address] [place] [address] Nicolas Medina MD 05/22/2025 3:30 PM EST Ancillary Procedure Obstetrics & Gynecology [address] [place] [address] Unsure of LMP (last menstrual period) as reason for ultrasound scan 05/22/2025 3:00 PM EST Initial Obstetrics & Gynecology [address] [place] [address] Nicolas Medina MD GA: 5w1d 05/22/2025 Travel 05/22/2025 Results Follow-Up [facility] [address] [place] [address] Halle Waldrop MD 05/19/2025 1:15 PM EDT Clinical Support [facility] [address] [place] [address] Positive test (Primary Dx) 05/19/2025 Travel 05/18/2025 Travel 05/18/2025 Telephone Obstetrics & Gynecology [address] [place] [address] Nicolas Medina MD Appointment (05/18/25 scheduled appt per WorkQ- pt requested an appt to confirm and address concerns- pt does NOT want to see Dr Lopez or the clinic staff who assisted Dr Lopez when pt was at her last appt w/ Dr Lopez ZMT/) 05/18/2025 Results Follow-Up [facility] [address] [place] [address] Petty, Jamviji 05/18/2025 Orders Only [facility] [address] [place] [address] Halle Waldrop MD Positive test (Primary Dx) 05/18/2025 Telephone [facility] [address] [place] [address] Estrellita Dietz MD Results 05/17/2025 3:20 PM EDT Office Visit [facility] [address] [place] [address] Halle Waldrop MD Missed period (Primary Dx); Positive test 05/17/2025 Travel 05/17/2025 Telephone [facility] [address] [place] [address] Estrellita Dietz MD HCN Clinical Concern/Question 04/06/2025 3:00 PM EDT Office Visit [facility] [address] [place] [address] Kathleen Lizarraga APRN Vertigo (Primary [...] a senior living (including now)? No 05/17/2025 [facility] Utilities Answer Date Recorded In the past [...] 01/18/2014 [facility]-Hepatitis A Vaccines Completed 05/19/2018, 10/18 [id number] Vaccine Discontinued 08/30/2021, 07/21/19 22 [facility]-HIV Screening [...] 7,199(H) <5 mIU/mL 05/31/2025 7:26 PM EST [facility] Blood Venous blood specimen / Unknown Venipuncture / Unknown 05/31/2025 2:51 PM EST 05/31/2025 6:43 PM EST Narrative [facility] - 05/31/2025 7:26 PM [...] MD LAB BLOOD ORDERABLES Final Resu lt [facility] [address] [place] [address] * Progesterone (05/31/2025 2:39 PM EST) Only the most recent of2 resultswithin the time period is included. [facility] Progesterone III 15.4 Reference Range not established ng/mL 05/31/2025 7:24 PM EST [facility] Blood Venous blood specimen / Unknown Venipuncture / Unknown 05/31/2025 2:39 PM EST 05/31/2025 6:44 PM EST Narrative [facility] - 05/31/2025 7:24 PM EST Menstrual Cycle Phase Reference Intervals: Females, 18 Y and up (ng/mL) Follicular <= 0.33 Ovulation <= 2.35 Luteal 0.5-21 Post-Menopausal <0.2 reference Intervals (ng/mL): 1st Trimester 11 - 45 2nd Trimester 25 - 84 3rd Trimester 58 - 214 us Nicolas Medina MD LAB BLOOD ORDERABLES Final Resu lt Performing Organization Address City/[facility]/ZIP Co de Phone Number [facility] [address] [place] [address] * Treponema Pallidum (Syphilis) Antibodies with Reflex to RPR and RPR Titer (Those with NO known Syphilis) (05/22/2025 3:52 PM EST) [facility] Syphilis Antibody (IgG+IgM) Nonreactive Nonreactive 05/22/2025 8:35 PM EST [facility] Comment:Nonreactive. No sero logic evidence of syphilis. No follow-up necessary unless clinically indicated (e.g., early syphilis). Blood Venous blood specimen / Unknown Venipuncture / Unknown 05/22/2025 3:52 PM EST 05/22/2025 6:48 PM EST Result Claudia Medina MD LAB BLOOD ORDERABLES Final Resu lt [facility] [address] [place] [address] * Chlamydia trachomatis DNA by PCR (05/22/2025 3:52 PM EST) [facility] Chlamydia trachomatis DNA PCR Result Not Detected Not Detected 05/23/2025 2:37 PM EST [facility] Urine Urine specimen obtained by clean catch procedure / Unknown Non-blood Collection / Unknown 05/22/2025 3:52 PM EST 05/22/2025 6:47 PM EST Narrative [facility] - 05/23/2025 2:37 PM EST This test is performed by the Travel[employer] instrument for Real Time PCR C. trachomatis and N. gonorrhea. This test is FDA approved for use with endocervical, vaginal, and urine specimens. This test is used for clinical purposes. It should not be regarded as invesigational or for research. The [facility] Clinical Microbiology Laboratory is certified under the Clinical Laboratory Improvement Amendments of 1988 (CLIA-88) as qualified to perform high complexity clinical laboratory testing. us Nicolas Medina MD LAB MICROBIOLOGY - [facility] Final Result Performing Organization Address City/[facility]/ZIP Co de Phone Number [facility] [address] [place] [address] * HIV 1 & 2 Antibody/Antigen Screen (05/22/2025 3:52 PM EST) HIV 1 & 2 Antibody/Antigen Screen Non Reactive Non Reactive 05/22/2025 7:28 PM EST [facility] Comment:Screening for HIV 1 & 2 antibodies, and P24 antigen is NONREACTIVE. No confirmatory testing is required. Blood Venous blood specimen / Unknown Venipuncture / Unknown 05/22/2025 3:52 PM EST 05/22/2025 6:48 PM EST us Nicolas Medina MD LAB BLOOD ORDERABLES Final Resu lt [facility] [address] [place] [address] * Hepatitis C Antibody w/Reflex to HCV Quant PCR (05/22/2025 3:52 PM EST) Hepatitis C Antibody Negative Negative 05/22/2025 7:29 PM EST [facility] Blood Venous blood specimen / Unknown Venipuncture / Unknown 05/22/2025 3:52 PM EST 05/22/2025 6:48 PM EST us Nicolas Medina MD LAB BLOOD ORDERABLES Final Resu lt Performing Organization Address City/[facility]/ZIP Co de Phone Number [facility] [address] [place] [address] * Neisseria gonorrhea DNA by PCR (05/22/2025 3:52 PM EST) Neisseria gonorrhea DNA PCR Result Not Detected Not Detected. 05/23/2025 2:37 PM EST [facility] Urine Urine specimen obtained by clean catch procedure / Unknown Non-blood Collection / Unknown 05/22/2025 3:52 PM EST 05/22/2025 6:47 PM EST Narrative [facility] - 05/23/2025 2:37 PM EST This test is performed by the TravelPi instrument for Real Time PCR C. trachomatis and N. gonorrhea. This test is FDA approved for use with endocervical, vaginal, and urine specimens. This test is used for clinical purposes. It should not be regarded as invesigational or for research. The [facility] Clinical Microbiology [facility] is certified under the Clinical Laboratory Improvement Amendments of 1988 (CLIA-88) as qualified to perform high complexity clinical laboratory testing. Result Claudia Medina MD LAB MICROBIOLOGY - GENERAL ORDE [facility] Final Result Performing Organization Address [facility] Co de Phone Number [facility] [address] [place] [address] * Rubella Antibody IgG (05/22/2025 3:52 PM EST) Rubella Antibody IgG Negative Negative 05/22/2025 9:27 PM EST [facility] Comment: Rubella IgG Result [...] ORDERABLES Final Resu lt Performing Organization Address City/[facility]/ZIP Co de Phone Number [facility] [address] [place] [address] * Hepatitis B Surface Antigen (05/22/2025 3:52 PM EST) Hepatitis B Surf Antigen Negative Negative 05/22/2025 8:35 PM EST [facility] Blood Venous blood specimen / Unknown Venipuncture / Unknown 05/22/2025 3:52 PM EST 05/22/2025 6:48 PM EST Result Claudia Medina MD LAB BLOOD ORDERABLES Final Resu lt Performing Organization Address City/[facility]/ZIP Co de Phone Number [facility] [address] [place] [address] * CBC W/O Differential (05/22/2025 3:52 PM EST) Pathologist [facility] WBC Count 8.24 3.70 - 10.30 10*3/uL LAB HEMATOLOGY METHOD 05/22/2025 7:07 PM EST [facility] RBC Count 4.96 3.90 - 5.20 10*6/uL LAB HEMATOLOGY METHOD 05/22/2025 7:07 PM EST [facility] HGB 14.0 11.2 - 15.7 g/dL LAB HEMATOLOGY METHOD 05/22/2025 7:07 PM EST [facility] HCT 41.6 34.0 - 45.0 % LAB HEMATOLOGY METHOD 05/22/2025 7:07 PM EST [facility] Platelet Count 318 155 - 369 10*3/uL LAB HEMATOLOGY METHOD 05/22/2025 7:07 PM EST [facility] MCV 84 79 - 98 fL LAB HEMATOLOGY METHOD 05/22/2025 7:07 PM EST [facility] MCH 28.2 26.0 - 32.0 pg LAB HEMATOLOGY METHOD 05/22/2025 7:07 PM EST [facility] MCHC 33.7 30.7 - 35.5 g/dL LAB HEMATOLOGY METHOD 05/22/2025 7:07 PM EST [facility] RDW 12.9 11.5 - 14.5 % LAB HEMATOLOGY METHOD 05/22/2025 7:07 PM EST [facility] MPV 11.0 8.8 - 12.5 fL LAB HEMATOLOGY METHOD 05/22/2025 7:07 PM EST [facility] nRBC 0.0 <=0.0 per 100 WBCs LAB HEMATOLOGY METHOD 05/22/2025 7:07 PM EST [facility] Blood Venous blood specimen / Unknown Venipuncture / Unknown 05/22/2025 3:52 PM EST 05/22/2025 6:48 PM EST us Nicolas Medina MD LAB BLOOD ORDERABLES Final Resu lt [facility] [address] [place] [address] * Type and Screen (05/22/2025 3:52 PM [...] TEST ORDERABLES Final Result BLOOD BANK [address] [place] [address], * Urine Culture (05/22/2025 3:52 PM EST) Culture <10,000 CFU/mL Mixed urogenital, fecal, or skin sophia present. 05/24/2025 9:27 AM EST [facility] Urine Urine specimen obtained by clean catch procedure / Unknown Non-blood Collection / Unknown 05/22/2025 3:52 PM EST 05/22/2025 6:47 PM EST us Nicolas Medina MD LAB MICROBIOLOGY - GENERAL ORDE RABLES Final Result [facility] [address] [place] [address] * OB US Transvaginal (05/22/2025 3:29 PM EST) Anatomical Region Laterality Modality Pelvis Ultrasound 05/22/2025 3:32 PM EST Impressions 05/22/2025 3:41 PM EST The OB Ultrasound you requested has been resulted. Please navigate to the Imaging tab in [employer] for review. This message has been generated by the interface. Narrative Procedure Note Nicolas Medina MD - 05/22/2025 IMPRESSION: The OB Ultrasound you requested has been resulted. Please navigate to theImaging tab in [employer] for review. This message has been generated by theinterface. us Nicolas Medina MD IMG OB US PROCEDURES Final Resu lt * (ABNORMAL) Test Qualitative Plasma (05/17/2025 3:43 PM EDT) Test Positive(A ) Negative 05/17/2025 7:18 PM EDT [facility] Blood Venous blood specimen / Unknown Venipuncture / Unknown 05/17/2025 3:43 PM EDT 05/17/2025 3:43 PM EDT Narrative [facility] - 05/17/2025 7:18 PM EDT Positive, greater than 6 mIU/hCG mL. us Halle Waldrop MD LAB BLOOD ORDERABLES Final Result [facility] [address] [place] [address] * POCT Urine (05/17/2025 3:27 PM EDT) [...] Insurance [employer] MEDICAID [facility] [place] 068 Advance Directives * Full Code (Latest Code Status on File) Date Activated Date Inactivated Comments 11/24/2024 9:20 PM 11/26/2024 4:06 PM Question Answer Comments I have reviewed the capacity from the link above and, if needed, have updated to appropriate status: Yes Care Teams Paint Mixer Machine Relationship Specialty Start Date End Date Estrellita Dietz MD [facility] [place] [address] PCP - General 11/30/20
--- OUTSIDE RECORDS SUMMARY | 2025-06-30 22:31 | XMS_ITS | Encounter Summary ---
Author Organization [facility] Address [address] [place] [address] Care Team Providers Care Chain Carrier Name Role Phone Estrellita Dietz MD Primary Care Provider [phone] Encounter Details Date Type Department Care Team (Late st Contact Info) Description 06/01/2025 Results Follow-Up Obstetrics & Gynecology [address] [place] [address] Nicolas Medina MD [address] [place] [address] Social History Tobacco Use Types [...] time in the past 12 m [facility], were you homeless or living [...] documented as of this encounter Care Teams Chain Carrier Relationship Specialty Start Date End Date Estrellita Dietz MD [address] [place] [address] PCP - General 11/30/20 documented as of this encounter
--- OUTSIDE RECORDS SUMMARY | 2025-06-30 22:31 | XMS_ITS | Encounter Summary ---
Author Organization [facility] Address [address] [place] [address] Care Team Providers Care Production Technologist Name Role Phone Estrellita Dietz MD Primary Care Provider [phone] Encounter Details Date Type Department Care Team (Late st Contact Info) Description 05/24/2025 Results Follow-Up Obstetrics & Gynecology [address] [place] [address] Nicolas Medina MD [address] [place] [address] Social History Tobacco Use Types [...] and Family Not on file 05/17/2025 Attends Bahai Services Not on file 05/17 Active Member [...] in a mcfp (including now)? No 05/17/2025 [facility] [...] documented as of this encounter Care Teams Production Technologist Relationship Specialty Start Date End Date Estrellita Dietz MD [address] [place] [address] PCP - General 11/30/20 documented as of this encounter
--- OUTSIDE RECORDS SUMMARY | 2025-06-30 22:31 | XMS_ITS | Encounter Summary ---
Author Organization [facility] Address [address] [place] [address] Care Team Providers Care Flash Drier Operator Name Role Phone Estrellita iDetz MD Primary Care Provider [phone] Encounter Details Date Type Department Care Team [...] and Family Not on file 05/17/2025 Attends Amish Services Not on file 05/17 Active Member [...] in a chcf (including now)? No 05/17/2025 [facility] Utilities Answer Date Recorded In [...] documented as of this encounter Care Teams Flash Drier Operator Relationship Specialty Start Date End Date Estrellita Dietz MD [address] [place] [address] PCP - General 11/30/20 documented as of this encounter
--- OUTSIDE RECORDS SUMMARY | 2025-06-30 22:31 | XMS_ITS | Encounter Summary ---
Author Organization [facility] Address [address] [place] [address] Care Team Providers Care Contractor General Engineering Name Role Phone Estrellita Dietz MD Primary Care Provider [phone] Encounter Details Date Type Department Care Team (Late st Contact Info) Description 05/31/2025 Telephone Obstetrics & Gynecology [address] [place] [address] Nicolas Medina MD [address] [place] [address] Social History Tobacco Use Types [...] in a halfway (including now)? No 05/17/2025 [facility] [...] she's in; please call Best contact number: [phone] (mobile) Optimal time of day to reach [...] will receive notification of the communication/outcome via [employer]. documented in this encounter Plan of Treatment [...] documented as of this encounter Care Teams Contractor General Engineering Relationship Specialty Start Date End Date Estrellita Dietz MD [address] [place] [address] PCP - General 11/30/20 documented as of this encounter
--- OUTSIDE RECORDS SUMMARY | 2025-06-30 22:31 | XMS_ITS | Encounter Summary ---
Author Organization [facility] Address [address] [place] [address] Care Team Providers Care Special Effects Person Name Role Phone Estrellita Dietz MD Primary Care Provider Encounter Details Date Type Department Care Team (Late st Contact Info) Description 06/19/2022 Outside Procedure External Location [address] [place] [address] Bahman Kumar, POLICE ACADEMY PROGRAM COORDINATOR [address] [place] [address] Social History Tobacco Use Types [...] PM EST Narrative 06/20/2022 10:46 [place] [address] Name: WILDER MOJICA Exam Date: 06/19/2022 : 2000 Age 21 Gender: F Physician: BAHMAN KUMAR Facility: [facility] Facility HSV: Outpatient Exam: WRIST 3V [...] Thank you for referring WILDER MOJICA to [facility]. Legally authenticated by PASQUALE DURAND 2022-06-20 10:35:18 Procedure Note Provider, Priyank Galeton - 06/20/[address] [address] Name: WILDER MOJICA Exam Date: 06/19/2022 : 2000 Age 21 Gender: F Physician: BAHMAN KUMAR Facility: [facility] Facility HSV: Outpatient Exam: WRIST 3V LT Left wrist 3 VIEW HISTORY: Pain. FINDINGS: No evidence of an acute, displaced fracture or dislocation ofthe visualized bony architecture. The joint spaces appear normal. IMPRESSION: No acute bony abnormality. Dictated By: Jonathon Hickey Transcribed By: Jonathon Villafana Transcribed On: 06/20/2022 10:35 AM Electronically signed by: Jonathon Hickey 06/20/2022 Thank you for referring WILDER MOJCIA to [facility]. Legally authenticated by PASQUALE DURAND 2022-06-20 10:35:18 Bahman Kumar POLICE ACADEMY PROGRAM COORDINATOR IMG XR PROCEDURES Final R esult documented in this encounter Visit Diagnoses Not on filedocumented in this encounter Additional Health Concerns Assessment Noted Time A fall risk assessment has been complete d for the patient 06/19/2022 4:06 PM EST documented as of this encounter Care Teams Special Effects Person Relationship Specialty Start Date End Date Estrellita Dietz MD [address] [place] [address] PCP - General 11/30/20 documented as of this encounter
--- OUTSIDE RECORDS SUMMARY | 2025-06-30 22:31 | XMS_ITS | Encounter Summary ---
Author Organization [facility] Address [address] [place] [address] Care Team Providers Care Tar Heel Name Role Phone Estrellita Dietz MD Primary Care Provider [phone] Encounter Details Date Type Department Care Team (Late st Contact Info) Description 05/24/2025 Telephone Obstetrics & Gynecology [address] [place] [address] Nicolas Medina MD [address] [place] [address] Social History Tobacco Use Types [...] in the past [address] [facility], were you homeless or living in a longterm (including now)? No 05/17/2025 [facility] [...] HCG levels. Please call. Best contact number: [phone] (mobile) Optimal time of day to reach [...] documented as of this encounter Care Teams Tar Heel Relationship Specialty Start Date End Date Estrellita Dietz MD [address] [place] [address] PCP - General 11/30/20 documented as of this encounter
--- OUTSIDE RECORDS SUMMARY | 2025-06-30 22:31 | XMS_ITS | Encounter Summary ---
Author Organization [facility] Address [address] [place] [address] Care Team Providers Care Senior Health Physics Technician Name Role Phone Estrellita Dietz MD Primary Care Provider [phone] Encounter Details Date Type Department Care Team [...] the past 12 m [facility], were you homeless or living in a jail (including now)? No 05/17/2025 [facility] Utilities Answer Date Recorded In the [...] documented as of this encounter Care Teams Senior Health Physics Technician Relationship Specialty Start Date End Date Estrellita Dietz MD [address] [place] [address] PCP - General 11/30/20 documented as of this encounter
--- OUTSIDE RECORDS SUMMARY | 2025-06-30 22:31 | XMS_ITS | Encounter Summary ---
Author Organization [facility] Address [address] [place] [address] Care Team Providers Care Integrated Marketing Manager Name Role Phone Estrellita Dietz MD Primary Care Provider [phone] Reason for Visit * Reason Onset Date Comments PT NEEDS NEW OB APPT- DR CANTU 05/17/2025 Encounter Details Date Type Department Care Team (Late st Contact Info) Description 05/17/2025 Telephone [facility] [address] [facility] [address] [place] [address] Esme Cantu MD [address] [facility] [address] [place] [address] PT NEEDS NEW OB APPT- DR CANTU [...] to patient: Self Best call back number: [phone] Patient is needing: TO SCHEDULE NEW OB APPT W/ DR CANTU LMP 04/16/25 PLEASE CALL documented in this encounter Plan of Treatment Not on file documented as of this encounter Visit Diagnoses Not on filedocumented in this encounter Care Teams Integrated Marketing Manager Relationship Specialty Start Date End Date Estrellita Dietz MD [address] [place] [address] PCP - General Family Medicine 07/21/18 documented as of this encounter
--- OUTSIDE RECORDS SUMMARY | 2025-06-30 22:31 | XMS_ITS | Encounter Summary ---
Author Organization [facility] Address [address] [place] [id number] Care Team Providers Care Shotgun Shell Reprinting Unit Operator Name Role Phone Esrtellita Dietz MD Primary Care Provider [phone] Reason for Visit * Reason Onset Date Comments Appointment 05/23/2025 Encounter Details Date Type Department Care Team (Late st Contact Info) Description 05/23/2025 Telephone [facility] [address] [address] Esme Cantu MD [address] [facility] [address] [place] [address] Appointment Social History Tobacco Use Types Packs/Day [...] IS SINCE THERE WAS NOTHING EARLIER IN [facility] * Telephone Encounter - Cora Roa RegSched Rep - 05/23/2025 9:50 AM EST Provider: Esme Cantu MD Caller: Spencer Mojica Female, 24 y.o., 2000 CSN: [id number] Reason for Call: PT REQ NEW OB APPT ON 06-21-[address] [facility] LOCATION [facility]AD OF [facility], UNABLE TOWARM TRANSFER, PT REQ A CALL BACK PT DOES NOT PREFER TO BE SEEN AT [facility] LOCATION DUE TO BEING TOLD SHE WASN'T CONSIDERED HIGH RISK documented in this encounter Plan of Treatment Not on file documented as of this encounter Visit Diagnoses Not on filedocumented in this encounter Care Teams Shotgun Shell Reprinting Unit Operator Relationship Specialty Start Date End Date Estrellita Dietz MD [address] [place] [address] PCP - General Family Medicine 07/21/18 documented as of this encounter
--- OUTSIDE RECORDS SUMMARY | 2025-06-30 22:31 | XMS_ITS | Encounter Summary ---
Author Organization [facility] Address [address] [place] [address] Care Team Providers Care Certified Credit Counselor Name Role Phone Estrellita Dietz MD Primary Care Provider [phone] Encounter Details Date Type Department Care Team (Late st Contact Info) Description 11/18/2024 Outside Procedure External Location [address] [place] [address] Provider, Priyank Mar Lin Social History Tobacco Use Types Packs/Day Years [...] any time in the past 12 m [facility], were you homeless or [...] AM EDT Narrative 11/18/2024 9:35 [place] [address] Name: WILDER MOJICA Exam Date: 11/18/2024 : 2000 Age 23 years Gender: F Physician: [place] Facility: [facility] Facility HSV: Outpatient Exam: OB EXAM [...] [facility] Legally authenticated by MAIK CORMIER 2024-11-18 09:27:47 Procedure Note Provider, Priyank Mar Lin - 11/18/2024 [facility] [address] [place] [address] Name: WILDER MOJICA Exam Date: 11/18/2024 : 2000 Age 23 years Gender: F Physician: [place] Facility: [facility] Facility HSV: Outpatient Exam: OB EXAM [...] Thank you for referring WILDER MOJICA to [facility]. Legally authenticated by MAIK CORMIER 2024-11-18 09:27:47 us Generic Mar Lin Provider IMG OB US PROCEDURES Final Result [...] documented as of this encounter Care Teams Certified Credit Counselor Relationship Specialty Start Date End Date Estrellita Dietz MD [address] [place] [address] PCP - General 11/30/20 documented as of this encounter
--- OUTSIDE RECORDS SUMMARY | 2025-06-30 22:31 | XMS_ITS | Encounter Summary ---
Author Organization Healthcare Address [address] [place] [address] Care Team Providers Care Administrative Support Associate Name Role Phone Estrellita Dietz MD Primary Care Provider [phone] Encounter Details Date Type Department Care Team (Late st Contact Info) Description 06/19/2022 Outside Procedure External Location [address] [place] [address] Bahman Kumar, CABLE TELEVISION PROGRAM DIRECTOR [address] [place] [address] Social History Tobacco Use Types [...] Laterality Modality Lower Extremities, Knee Left [facility] 06/19/2022 4:44 PM EST Narrative 06/20/2022 10:46 [place] [address] Name: WILDER MOJICA Exam Date: 06/19/2022 : 2000 Age 21 Gender: F Physician: BAHMAN KUMAR Facility: [facility] Facility HSV: Outpatient Exam: KNEE 4V MIN [...] Thank you for referring WILDER MOJICA to [facility]. Legally authenticated by PASQUALE DURAND 2022-06-20 10:34:39 Procedure Note Provider, Priyank [place] - 06/20/2022 [place] [address] [place] [address] Name: WILDER MOJICA Exam Date: 06/19/2022 : 2000 Age 21 Gender: F Physician: BAHMAN KUMAR Facility: [facility] Facility HSV: Outpatient Exam: KNEE 4V MIN [...] South. Legally authenticated by PASQUALE DURAND 2022-06-20 10:34:39 Bahman Kumar CABLE TELEVISION PROGRAM DIRECTOR IMG XR PROCEDURES Final R esult documented in this encounter Visit Diagnoses Not on filedocumented in this encounter Additional Health Concerns Assessment Noted Time A fall risk assessment has been complete d for the patient 06/19/2022 4:06 PM EST documented as of this encounter Care Teams Administrative Support Associate Relationship Specialty Start Date End Date Estrellita Dietz MD [address] [place] [address] PCP - General 11/30/20 documented as of this encounter
--- OUTSIDE RECORDS SUMMARY | 2025-06-30 22:32 | XMS_ITS | Encounter Summary ---
Author Organization [facility] Address [address] [place] [address] Care Team Providers Care Supervisor Sunglasses Name Role Phone Estrellita Dietz MD Primary Care Provider [phone] Reason for Visit * Reason Onset Date Comments Appointment 05/18/2025 05/18/25 [facility] ed appt per WorkQ- pt requested an appt to confirm and address concerns- pt does NOT want to see Dr Lopez or the clinic staff who assisted Dr Lopez when pt was at her last appt w/ Dr John PEÑA Encounter Details Date Type Department Care Team (Late st Contact Info) Description 05/18/2025 Telephone Obstetrics & Gynecology [address] [place] [address] Nicolas Medina MD [address] [place] [address] Appointment (05/18/25 scheduled appt per [...] and Family Not on file 05/17/2025 Attends Protestant Services Not on file 05/17 Active Member [...] were you homeless or living in a group home (including now)? No 05/17/2025 [facility] Utilities Answer Date Recorded In the past [...] documented as of this encounter Care Teams Supervisor Sunglasses Relationship Specialty Start Date End Date Estrellita Dietz MD [address] [place] [phone] PCP - General 11/30/20 documented as of this encounter
--- OUTSIDE RECORDS SUMMARY | 2025-06-30 22:32 | XMS_ITS | Encounter Summary ---
Author Organization [facility] Address [address] [place] [address] Care Team Providers Care Artificial Limb Maker Name Role Phone Estrellita Dietz MD Primary Care Provider [phone] Encounter Details Date Type Department Care Team [...] any time in the past 12 m [facility], were you homeless or living in a assisted (including now)? No 05/17/2025 [facility] Utilities [...] documented as of this encounter Care Teams Artificial Limb Maker Relationship Specialty Start Date End Date Estrellita Dietz MD [address] [place] [address] PCP - General 11/30/20 documented as of this encounter
--- OUTSIDE RECORDS SUMMARY | 2025-06-30 22:32 | XMS_ITS | Encounter Summary ---
Author Organization [facility] Address [address] [place] [address] Care Team Providers Care Technical Advisor Name Role Phone Estrellita Dietz MD Primary Care Provider [phone] Encounter Details Date Type Department Care Team (Late st Contact Info) Description 05/23/2025 Results Follow-Up Obstetrics & Gynecology [address] [place] [address] Nicolas Medina MD [address] [place] [address] Social History Tobacco Use Types [...] time in the past 12 m [facility], were you homeless or living in a residential (including now)? No 05/17/2025 [facility] Utilities Answer Date Recorded In the [...] as of this encounter Care Teams Technical Advisor Relationship Specialty Start Date End Date Estrellita Dietz MD [address] [place] [address] PCP - General 11/30/20 documented as of this encounter
--- OUTSIDE RECORDS SUMMARY | 2025-06-30 22:32 | XMS_ITS | Encounter Summary ---
Author Organization [facility] Address [address] [place] [address] Care Team Providers Care Wood Floor Refinisher Name Role Phone Estrellita Dietz MD Primary Care Provider Encounter Details Date Type Department Care Team (Late st Contact Info) Description 05/18/2025 Results Follow-Up [facility] Medicine [address] [place] [address] [address] Social History Tobacco [...] and Family Not on file 05/17/2025 Attends Sabianism Services Not on file 05/17 Active Member [...] in a [facility] (including now)? No 05/17/2025 [facility] Utilities Answer Date Recorded In the past [...] documented as of this encounter Care Teams Wood Floor Refinisher Relationship Specialty Start Date End Date Estrellita Dietz MD [address] [place] [address] PCP - General 11/30/20 documented as of this encounter
--- OUTSIDE RECORDS SUMMARY | 2025-06-30 22:32 | XMS_ITS | Encounter Summary ---
Author Organization [facility] Address [address] [place] [address] Care Team Providers Care Napkin Band Wrapper Name Role Phone Estrellita Dietz MD Primary Care Provider [phone] Encounter Details Date Type Department Care Team (Late st Contact Info) Description 05/23/2025 Telephone Obstetrics & Gynecology [address] [place] [address] Nicolas Medina MD [address] [place] [address] Social History Tobacco Use Types [...] and Family Not on file 05/17/2025 Attends Alevism Services Not on file 05/17 Active Member [...] any time in the past 12 m [facility], were you homeless or living in a group home (including now)? No 05/17/2025 [facility] [...] Questionnaire-9 Score 0 09/2024 10:14 AM EST Hornbeck, Kasha * Calculated C-SSRS Risk Score (Lifetime/Recent) Answer Date of Assessment Author No Risk Indicated 06/21/2025 10:15 AM EST Hornbeck, Kasha * How difficult have these problems [...] 1 Month) No 06/21/2025 10:15 AM EST Hornbeck Kasha 6. Suicidal Behavior (Lifetime) No 10:15 AM EST Elham Kasha documented as of this encounter Miscellaneous Notes * Telephone Encounter - Doris Naranjo - 05/23/2025 2:32 PM EST Status Update Call #1 1st call regarding the status of the initial request. Best contact number: [phone] (mobile) Optimal time of day to reach [...] will receive notification of the communication/outcome via Class [employer]. * Telephone Encounter - Dulce Syed - 05/23/2025 9:55 AM EST Clinical Concern/Question Reason for Call: Pt calling for results from yesterday apt. Best contact number: [phone] (mobile) Optimal time of day to reach caller: ANYTIME Additional comments/information from caller: None Note: Please do not reply to this message. Follow-up communication and further actions as a result of this message need to be communicated with the patient directly, if the patient is not active onMyChart. If the patient is active on MyChart, they will receive notification of the communication/outcome via [employer]. documented in this encounter Plan of Treatment [...] documented as of this encounter Care Teams Napkin Band Wrapper Relationship Specialty Start Date End Date Estrellita Dietz MD [address] [place] [address] PCP - General 11/30/20 documented as of this encounter
--- OUTSIDE RECORDS SUMMARY | 2025-06-30 22:32 | XMS_ITS | Encounter Summary ---
Author Organization [facility] Address [address] [place] [address] Care Team Providers Care Classics Teacher Name Role Phone Estrellita Dietz MD Primary Care Provider [phone] Reason for Visit * Reason Onset Date Comments HCN Clinical Concern/Question 05/17/2025 Encounter Details Date Type Department Care Team (Late st Contact Info) Description 05/17/2025 Telephone [facility] & [address] [address] Estrellita Dietz MD [address] [place] [address] HCN Clinical Concern/Question Social History Tobacco [...] any time in the past 12 m [facility], were you homeless or living in a intermediate (including now)? No 05/17/2025 [facility] Utilities Answer Date Recorded In [...] Not at all 05/22/2025 3:13 PM Maryanne aMyo Poor appetite or overeating Not at all [...] pt for more information. Best contact number: [phone] (mobile) Optimal time of day to reach caller: ANYTIME Additional comments/information from caller: None Note: Please do not reply to this message. Follow-up communication and further actions as a result of this message need to be communicated with the patient directly, if the patient is not active onMyChart. If the patient is active on MyChart, they will receive notification of the communication/outcome via [email or web address]. documented in this encounter Plan of Treatment [...] documented as of this encounter Care Teams Classics Teacher Relationship Specialty Start Date End Date Estrellita Dietz MD [address] [place] [address] PCP - General 11/30/20 documented as of this encounter
--- OUTSIDE RECORDS SUMMARY | 2025-06-30 22:32 | XMS_ITS | Encounter Summary ---
Author Organization [facility] Address [address] [place] [address] Care Team Providers Care Information Security Risk Analyst Name Role Phone Estrellita Dietz MD Primary Care Provider [phone] Encounter Details Date Type Department Care Team [...] residential (including now)? No 05/17/2025 [facility] Utilities Answer Date Recorded In the [...] documented as of this encounter Care Teams Information Security Risk Analyst Relationship Specialty Start Date End Date Estrellita Dietz MD [address] [place] [phone] PCP - General 11/30/20 documented as of this encounter
--- OUTSIDE RECORDS SUMMARY | 2025-06-30 22:32 | XMS_ITS | Encounter Summary ---
Author Organization [facility] Address [address] [place] [address] Care Team Providers Care Consulting Project Director Name Role Phone Estrellita Dietz MD [...] and Family Not on file 05/17/2025 Attends Mosque Services Not on file 05/17 Active Member [...] a nursing home (including now)? No 05/17/2025 [facility] Utilities Answer Date Recorded In the [...] documented as of this encounter Care Teams Consulting Project Director Relationship Specialty Start Date End Date Estrellita Dietz MD [address] [place] [address] PCP - General 11/30/20 documented as of this encounter
--- OUTSIDE RECORDS SUMMARY | 2025-06-30 22:32 | XMS_ITS | Encounter Summary ---
Author Organization [facility] Address [address] [place] [address] Care Team Providers Care Warehouse Operations Associate Name Role Phone Estrellita Dietz MD Primary Care Provider [phone] Reason for Visit * Reason Onset Date Comments Results 05/18/2025 Encounter Details Date Type Department Care Team (Late st Contact Info) Description 05/18/2025 Telephone [facility] & [address] [address] Estrellita Dietz MD [address] [place] [address] Results Social History Tobacco Use Types [...] and Family Not on file 05/17/2025 Attends Tenriism Services Not on file 05/17 Active Member [...] a senior living (including now)? No 05/17/2025 [facility] Utilities Answer Date Recorded In [...] on her results that she sees on Tell[employer]. Calling to see if someone could give her her hcg value. Best contact number and optimal time of day to reach caller: [phone] - anytime Note: Please do not reply to this message. Follow-up communication and further actions as a result of this message need to be communicated with the patient directly, if the patient is not active onMyChart. If the patient is active on MyChart, they will receive notification of the communication/outcome via [employer]. documented in this encounter Plan of Treatment [...] documented as of this encounter Care Teams Warehouse Operations Associate Relationship Specialty Start Date End Date Estrellita Dietz MD [address] [place] [address] PCP - General 11/30/20 documented as of this encounter
--- OUTSIDE RECORDS SUMMARY | 2025-06-30 22:32 | XMS_ITS | Encounter Summary ---
Author Organization [facility] Address [address] [place] [address] Care Team Providers Care Research Specialist Name Role Phone Estrellita Dietz MD Primary Care Provider [phone] Encounter Details Date Type Department Care Team [...] a skilled nursing (including now)? No 05/17/2025 [facility] [...] documented as of this encounter Care Teams Research Specialist Relationship Specialty Start Date End Date Estrellita Dietz MD [address] [place] [address] PCP - General 11/30/20 documented as of this encounter
--- OUTSIDE RECORDS SUMMARY | 2025-06-30 22:32 | XMS_ITS | Encounter Summary ---
Author Organization [facility] Address [address] [place] [address] Care Team Providers Care Sheet Metal Duct Installer Apprentice Name Role Phone Estrellita Dietz MD Primary Care Provider [phone] Encounter Details Date Type Department Care Team (Late st Contact Info) Description 05/18/2025 Orders Only [facility] [address] [place] [address] Halle Waldrop MD [address] [place] [address] Positive test (Primary Dx) Social [...] in a assisted (including now)? No 05/17/2025 [facility] Utilities Answer Date Recorded In the [...] 44.4(H) <5 mIU/mL 05/18/2025 1:07 PM EDT [facility] Blood Venous blood specimen / Unknown Venipuncture / Unknown 05/17/2025 3:43 PM EDT 05/17/2025 3:43 PM EDT Narrative [facility] - 05/18/2025 1:07 PM EDT Patients: [...] or kits cannot be used interchangeably. us Hlale Waldrop MD LAB BLOOD ORDERABLES Final Result Performing Organization Address City/State/[facility] Co de Phone Number [facility] [address] [place] [address] documented in this encounter Visit Diagnoses Diagnosis [...] documented as of this encounter Care Teams Sheet Metal Duct Installer Apprentice Relationship Specialty Start Date End Date Estrellita Dietz MD [address] [place] [address] PCP - General 11/30/20 documented as of this encounter
--- OUTSIDE RECORDS SUMMARY | 2025-06-30 22:32 | XMS_ITS | Encounter Summary ---
Author Organization [facility] Address [address] [place] [address] Care Team Providers Care Help Desk Consultant Name Role Phone Estrellita Dietz MD Primary Care Provider [phone] Encounter Details Date Type Department Care Team (Late st Contact Info) Description 05/22/2025 Results Follow-Up [facility] [address] [place] [address] Halle Waldrop MD [address] [place] [address] Social History Tobacco Use Types [...] in the past 12 m [facility], were you homeless or living in a usp (including now)? No 05/17/2025 [facility] Utilities Answer Date Recorded In the [...] documented as of this encounter Care Teams Help Desk Consultant Relationship Specialty Start Date End Date Estrellita Dietz MD [address] [place] [address] PCP - General 11/30/20 documented as of this encounter
[2025-06-30 22:34] VITALS: BP 125/78; PULSE 109; RESP 18; TEMP 37.1; O2SAT 95; BMI 23.3
--- NOTE | 2025-06-30 22:34 | ED_ITS ---
Discharge Plan Disposition Patient Disposition: Home, Self-Care Condition: Good Prescriptions Prescriptions: New cephalexin 500 mg capsule 500 mg PO TID Qty: 30 0RF No Action progesterone micronized 200 mg capsule 200 mg PO HS Classic 28 mg iron- 800 mcg tablet PO DAILY hydrocortisone 1 % cream 1 applic topical BID PRN (Reason: rash) Qty: 28.35 0RF Referrals Follow up/Referrals: Estrellita Dietz [Primary Care Provider, Medical] - See instructions Activity Restrictions/Add. Instructions Additional Instructions/Restrictions: Take the antibiotics as prescribed. Follow-up with OB as scheduled. Clinical Impressions Clinical Impression: Bacteria in urine Print Language Print Language: Estonian Discharge ED Provider: Marry Dow General Adult HPI General Chief complaint: Headache Stated complaint: Headache, runny nose, stomach pain Time Seen by Provider: 06/30/25 22:33 History of Present Illness HPI narrative: Patient is a otherwise healthy 24-year-old female who is currently 9 weeks who presented to the emergency department with right lower quadrant abdominal pain as well as a headache. Patient states that she has been having a headache for about 4 to 5 hours, gradual onset. Patient states that she is having some photophobia but denies any other visual disturbances. Patient denies any neck pain. Patient denies any chest pain or shortness of breath. Patient denies any upper respiratory symptoms. Patient states that she has a history of migraines but is unable to take her typical shots given that she is currently . Patient does report some intermittent right lower quadrant abdominal pain as well that is sharp in nature. Patient denies any urinary symptoms. Patient denies any fevers. Patient denies any prior abdominal surgeries. Patient has had 1 prior before. Patient denies any vaginal bleeding vaginal discharge. Related Data Home Medications ?Medication ?Instructions ?Recorded ?Confirmed vits no.126-ferrous fum tab PO DAILY 06/09/25 06/20/25 28 mg iron-folic acid 800 mcg tablet (Classic ) progesterone micronized 200 mg 200 mg PO HS 06/09/25 1 08/21/24 capsule Previous Rx's ?Medication ?Instructions ?Recorded hydrocortisone 1 % topical cream 1 applic topical BID PRN rash 06/16/25 #28.35 grams cephalexin 500 mg capsule 500 mg PO TID #30 caps 07/01 Allergies Allergy/AdvReac Type Severity Reaction Status Date / Time azithromycin (From Zithromax) Allergy Severe Hives Verified 06/20/25 14:20 [facility] Disclaimer: The information contained in this section may have been updated after the patient was seen, as this information can be updated by other users. Medical History (Updated 07/01/25 @ 01:07 by Marry Dow DO) Encounter for supervision of other normal , first trimester Asthma Anxiety ADHD Surgical History H/O adenoidectomy Social History Smoking Status: Never smoker alcohol intake: never current occupational status: unemployed Travel in the last 8 weeks?: Outside the [place] Have you lived/traveled outside US in past 30 days?: No Contact w/someone who lives/traveled outside [place] past 30 days?: No Exposure to someone with infectious disease in past 14 days?: No Do you have a fever (greater than 100.4 F or 38 C)?: No Have you tested positive for COVID-19?: No Exposed to someone with COVID-19 in past 14 days?: No Do you have a sore throat?: No Do you have a cough?: No Do you have any weakness?: No Do you have any diarrhea?: No Are you experiencing any unusual bleeding?: No Do you have any muscle aches/pain?: No Do you have any abdominal pain?: No Are you experiencing loss of taste or smell?: No ROS Obtained: Yes All systems reviewed & no additional complaints except as documented and Yes Systems reviewed as appropriate & no additional complaints except as documented Physical Exam General General appearance: alert and in no apparent distress Head Head exam: atraumatic, normocephalic and normal inspection Eye Eye exam: Present normal appearance, PERRL and EOMI; Absent scleral icterus ENT ENT exam: Present normal exam and normal external ear exam Neck Neck exam: Present normal inspection and full ROM Chest Chest inspection: Present normal inspection and symmetric chest wall rise Respiratory Respiratory exam: Present normal lung sounds bilaterally; Absent respiratory distress or wheezes Cardiovascular Cardiovascular exam: Present regular rate, normal rhythm and normal heart sounds Abdominal Exam Abdominal exam: Present soft, distention and tenderness (no RLQ tenderness); Absent guarding or rebound Extremities Exam Extremities exam: Present normal inspection and full ROM Back Exam Back exam: Present normal inspection and full ROM Neurological Exam Neurological exam: Present alert, oriented X3, normal gait, motor sensory deficit and reflexes normal Psychiatric Psychiatric exam: Present normal affect and normal mood Skin Skin exam: Present warm and dry Medical Decision Making Medical Records Medical records reviewed: Yes I reviewed the patient's medical records. Screening: Per USPSTF and CDC recommendations, given the prevalence of disease in our region, it is our hospital?s policy to screen for HIV and viral Hepatitis for all patients aged 18 and over and those with ongoing risk factors. Chandan Inquiry Pt receiving controlled substance: No Vital Signs: 06/30/25 22:34 Temperature 98.8 F Temperature Source Oral Pulse Rate [Right] 109 H Respiratory Rate 18 Blood Pressure [Right Arm] 125/78 Blood Pressure Mean [Right Arm] 93 02 Sat by Pulse Oximetry 95 Oxygen Delivery Method Room Air Lab Data Lab results reviewed: Yes I reviewed the patient's lab results. Lab Results 06/30/25 22:50: WBC 10.0, RBC 4.89, Hgb 14.0, Hct 40.7, MCV 83.2, MCH 28.6, MCHC 34.4, RDW 12.8, Plt Count 240, MPV 10.6 H, Neut % (Auto) 71.6, Lymph % (Auto) 21.0, Mcintosh % (Auto) 4.4, Eos % (Auto) 2.3, Baso % (Auto) 0.2, Neut # (Auto) 7.1, Lymph # (Auto) 2.1, Mcintosh # (Auto) 0.4, Eos # (Auto) 0.2, Baso # (Auto) 0.0, Sodium 136, Potassium 3.6, Chloride 102, Carbon Dioxide 23, Anion Gap 14.6, BUN 7, Creatinine 0.60, Estimated Creat Clear 135, Estimated GFR 125, Est GFR ( Amer) 151, Glucose 131 H, Calcium 9.3, Total Bilirubin 0.7, AST 43 H, ALT 52, Alkaline Phosphatase 60, C-Reactive Protein 3.3, Total Protein 8.2, Albumin 4.9, Globulin 3.3 H, Albumin/Globulin Ratio 1.5, Lipase 89, HCG, Quant [id number] H 07/01/25 00:40: Urine Color Yellow, Urine Appearance Clear, Urine pH 6.0, Ur Specific [place] 1.020, Urine Protein Negative, Urine Glucose (UA) Negative, Urine Ketones Negative, Urine Blood Negative, Urine Nitrate Negative, Urine Bilirubin Negative, Urine Urobilinogen 0.2, Ur Leukocyte Esterase Negative, Urine RBC Occasional, Urine WBC Occasional, Ur Squamous Epith Cells Occasional, Amorphous Sediment 2+, Urine Bacteria Trace 06/30/25 22:50 06/30/25 22:50 Orders (Tests/Meds): ED MEDICATIONS Discontinued Medications Generic Name Dose Route Start Last Admin Trade Name Freq PRN Reason Stop Dose Admin Acetaminophen 1,000 mg 06/30/25 22:41 06/30/25 23:10 Acetaminophen 1,000mg/100ml Vial IV 06/30/25 22:42 1,000 mg ONCE ONE Administration Sodium Chloride 1,000 mls @ 999 mls/hr 06/30/25 22:41 06/30/25 22:58 Sod Chlor 0.9% 1000ml Bag IV 06/30/25 23:41 999 mls/hr .Q1H1M ONE Administration Magnesium Sulfate 2 gm in 50 mls @ 50 mls/hr 06/30/25 22:41 07/01/25 00:47 Magnesium Sulfate 2gm/50ml Premix IV 06/30/25 23:40 Infused ONCE ONE Infusion Ondansetron HCl 4 mg 06/30/25 22:41 06/30/25 23:00 Ondansetron 4mg/2ml Vial IV 06/30/25 22:42 4 mg ONCE ONE Administration ORDERS Category Date Time Status CBC w/Auto Diff [Complete Blood Count Auto Diff] Stat Lab 06/30/25 22:50 Completed CMP [Comprehensive Metabolic Panel] Stat Lab 06/30/25 22:50 Completed CRP [C-Reactive Protein] Stat Lab 06/30/25 22:50 Completed HCG,Quantitative Stat Lab 06/30/25 22:50 Completed Lipase Stat Lab 06/30/25 22:50 Completed UA [Urinalysis and Microscopic] Stat Lab 07/01/25 00:40 Completed Urine Culture Stat Micro 07/01/25 00:40 Received US OB transvaginal Stat Ultrasound 06/30/25 23:41 Completed Medical Decision Narrative: Patient is a 24-year-old female who is currently 9 weeks who presents to the emergency department with concern for headache and right lower quadrant abdominal pain. On arrival, patient was mildly tachycardic, vital signs were otherwise unremarkable. Differential includes but not limited to:Tension headache, migraine headache, ovarian torsion, ovarian cyst, urinary tract infection, hypertension in , amongst others. On exam, patient had no abdominal tenderness however patient was complaining of intermittent right lower quadrant abdominal pain. Labs were obtained, urine was sent, ultrasound was obtained and patient was given medications for her headache. Patient's labs were reviewed and interpreted by myself: CBC showed no leukocytosis, hemoglobin was stable. CMP was unremarkable. hCG appropriately elevated. UA had trace bacteria but no other acute infection. Transvaginal ultrasound showed IUP with no evidence ovarian torsion. On repeat assessment, patient's headache was completely resolved. Patient was never hypertensive to be concerning for hypertension related headache in . Patient had significant improvement in her symptoms, patient continued to have no right lower quadrant abdominal pain and in the setting of no white count, normal CRP with no right lower quadrant abdominal tenderness at this time low concern for appendicitis. Was sent with Keflex given her trace bacteria in her urine. Patient was otherwise discharged home with plan to follow-up with her OB as scheduled. Critical Care Critical Care Time Critical Care Time: No
[2025-06-30 22:58] LABS: Hematocrit 40.7 % (37.0-47.0); Hemoglobin 14.0 g/dL (12.2-16.2); Immature Granulocytes % 0.5 %; Mean Corpuscular HGB Conc 34.4 g/dL (31.8-35.4); Mean Corpuscular Hemoglobin 28.6 pg (27.0-31.2); Mean Corpuscular Volume 83.2 fl (81-99); Nucleated Red Blood Cells % 0 %; Platelet Count 240 K/mm3 (142-424); Red Blood Count 4.89 M/mm3 (4.20-5.40); Red Cell Distribution Width-SD 38.8 fL; White Blood Count 10.0 K/mm3 (4.8-10.8)
[2025-06-30] MEDS: 0.9 % SODIUM CHLORIDE 1000ML 1,000 ML 999 ML IV (22:58)
[2025-06-30] MEDS: MAGNESIUM SULFATE IN WATER 2 GM/50 ML PIGGYBACK IV (22:59)
[2025-06-30] MEDS: ONDANSETRON 4MG/2ML VIAL 4 MG IV (23:00)
[2025-06-30 23:06] LABS: Albumin Level 4.9 g/dl (3.5-5.0); Chloride 102 mmol/L (98-107)
[2025-06-30 23:07] LABS: Potassium 3.6 mmoL/L (3.5-5.1); Sodium 136 mmol/L (136-145)
[2025-06-30 23:09] LABS: Alanine Aminotransferase 52 U/L (12-78); Anion Gap 14.6 mEq/L (5-15); Aspartate Amino Transferase 43 U/L (14-36); Bilirubin,Total 0.7 mg/dl (0.2-1.3); Blood Urea Nitrogen 7 mg/dl (7-17); Carbon Dioxide 23 mmol/L (22.0-30.0); Creatinine Clearance Estimated 135 mL/min (50-200); Creatinine,Serum 0.60 mg/dl (0.52-1.04); Estimated Glomerular Filt Rate 125 ml/min (>60); GFR (African American) 151 ML/MIN (>60)
[2025-06-30 23:10] LABS: Albumin/Globulin Ratio 1.5 (1.1-1.8); Alkaline Phosphatase 60 U/L (38-126); Calcium 9.3 mg/dl (8.4-10.2); Globulin 3.3 g/dL (1.3-3.2); Glucose 131 mg/dl (74-100); Lipase 89 U/L (23-300); Total Protein,Serum 8.2 g/dl (6.3-8.2)
[2025-06-30] MEDS: ACETAMINOPHEN 1,000MG/100ML VIAL 1000 MG IV (23:10)
[2025-06-30 23:15] LABS: C-Reactive Protein 3.3 mg/L (0-4)
--- NOTE | 2025-06-30 23:26 | HMH.ITSTN ---
U/S called in around 2309
--- NOTE | 2025-06-30 23:41 | US_ITS ---
PROCEDURE INFORMATION: Exam: US , Transvaginal and US Duplex Artery and Vein, Ovaries, Complete Exam date and time: 06/30/2025 11:35 PM Age: 24 years old Clinical indication: complicated by abdominal or pelvic pain; Right lower quadrant; First trimester (<14 weeks 0 days); Gestational age or lmp: 01/29/2026; ; Additional info: R/O torsion TECHNIQUE: Imaging protocol: Real-time transvaginal obstetrical ultrasound of the maternal pelvis and a first trimester with image documentation. Transvaginal imaging was used for better evaluation of the fetus, adnexa, and/or cervix. Real-time duplex ultrasound scan of the arterial and venous flow of the ovaries with B-mode, color Doppler flow and spectral waveform analysis, Complete Duplex. Duplex exam was performed to evaluate for torsion and other vascular conditions. Total images: 183 COMPARISON: No relevant prior studies available. FINDINGS: Other findings: Color and spectral Doppler flow is present both ovaries with arterial and venous waveforms. No torsion. GESTATION: Gestation: Single live intrauterine gestation. heart rate: 163 bpm. Placenta: 2.3 x 1.9 x 1.6 cm subchorionic hemorrhage caudal to the gestational sac. Amniotic fluid (Qualitative): Amniotic fluid is normal for gestational age. BIOMETRY: Gestational age (AUA): 10 weeks 3 days. Estimated due date (AUA): January 23, 2026. MATERNAL: Cervix: Incidental cervical nabothian cyst. No uterine mass. Right ovary/adnexa: Right ovary measuring 3.0 x 2.7 x 1.6 cm with volume of 6.8 cc. Left ovary/adnexa: Left ovary measuring 3.5 x 1.6 x 2.0 cm with volume of 5.9 cc. 2 cm complex left ovarian corpus luteal cyst. Intraperitoneal space: No free pelvic fluid. No adnexal mass. IMPRESSION: 1. Single live intrauterine gestation of 10 weeks 3 days. 2. 2.3 x 1.9 x 1.6 cm subchorionic hemorrhage caudal to the gestational sac. 3. 2 cm complex left ovarian corpus luteal cyst. 4. No ovarian torsion.
[2025-07-01 00:45] LABS: Microscopic, Urine URINE MICROSCOPIC (MICROSCOPIC)
[2025-07-01 00:47] LABS: Bilirubin,Urine Negative (Negative); Color,Urine YELLOW (Yellow); Glucose,Urine (UA) Negative (Negative); Ketones,Urine Negative (Negative); Leukocyte Esterase,Urine Negative (Negative); PH,Urine 6.0 (5.0-8.5); Protein,Urine Negative (Negative); Specific Gravity, Urine 1.020 (1.005-1.030); Urobilinogen,Urine 0.2 EU/dl (0.2)
[2025-07-01 00:57] LABS: Amorphous Sediment,Urine 2+ /lpf; Bacteria,Urine Trace /lpf; RBC,Urine Occasional #/hpf (0-3); Squamous Epithelial Cell,Urine Occasional #/hpf (0-5); WBC,Urine Occasional #/hpf (0-3)
[2025-07-01 01:33] VITALS: BP 124/78; PULSE 74; RESP 18; TEMP 36.6; O2SAT 98
== END 2025-07-01 01:40 | disposition home or self-care (01) ==
PROVIDERS: Emergency Provider Student in an Organized Health Care Education/Training Program; PCP Family Medicine
DX: O26.891 Other specified pregnancy related conditions, first trimester (principal); R78.81 Bacteremia; R51.9 Headache, unspecified; R10.31 Right lower quadrant pain; R00.0 Tachycardia, unspecified; Z3A.09 9 weeks gestation of pregnancy
CPT/HCPCS: 76817; 80053; 81001; 83690; 84702; 85025; 86140; 87086; 96365; 96375; 99285; J0131; J2405; J3475; J7030